=== PATIENT | female | born 1965 | race Caucasian/White ===

== ENCOUNTER 2020-03-07 08:02 | Outpatient (REF) | payer SELFPAY | END 2020-03-07 08:03 | disposition home or self-care (01) | LOC: HO.HAP 08:02 | PROVIDERS: Visit Provider Internal Medicine | DX: Z13.89 Encounter for screening for other disorder (principal) ==

== ENCOUNTER 2020-03-28 15:25 | Outpatient (REF) | payer SELFPAY | END 2020-03-28 15:26 | disposition home or self-care (01) | LOC: HO.HAP 15:25 | PROVIDERS: Visit Provider Internal Medicine | DX: Z13.89 Encounter for screening for other disorder (principal) ==

== ENCOUNTER 2020-06-04 09:28 | Outpatient (REF) | payer OTHER, SELFPAY ==
--- NOTE | 2020-06-04 11:20 | MHC.AU.P13 ---
Adult Audiological Evaluation Date of Visit: 06/04/20 Reason for Appointment: Audiological evaluation due to monitor the status of Ms. Yanez's hearing loss. She has a longstanding history of asymmetrical sensorineural hearing loss, left ear worse than right. She uses a hearing aid in the right ear only. She denies any significant changes to her hearing or medical history. Previous Hearing Test Results: [facility] – [place], 11/25/2018- Moderate to severe SNHL in the right ear, severe SNHL in the left ear. Medical History: Medical History: Thyroid Disease Hearing Instrument History- Right Ear: Java Web Architect: Here On Biz Model: Global Nano Productseo B 90-R Serial Number: [id number] Battery Size: Rechargeable Repair Warranty: 03/24/2020 Loss and Damage Warranty: 03/24/2020 Service Plan: Repair Dispensed By: [facility] Date of Fittin10/17/2016 Otoscopy: Right Ear: Unremarkable Left Ear: Unremarkable Hearing Evaluation: Transducer(s) Used: Insert Earphones, Bone Conduction Method: Conventional Audiometry Stimuli Used: Pure Tones Right Ear: Description of Hearing: Moderate sloping to severe sensorineural hearing loss from 250-8000 Hz. Left Ear: Description of Hearing: Severe sensorineural hearing loss from 250-8000 Hz. Speech Recognition Threshold (SRT): Method Used: Monitored Live Voice Stimuli Used: Spondee Words Right Ear: 40 dBHL Left Ear: 80 dBHL with effective masking Word Discrimination: Method: Recorded Lists Word Lists Used: NU-6 Right Ear: 100% at 80 dBHL Left Ear: Did not test- Longstanding history of poor discrimination Comparison: Compared to the most recent evaluation: Hearing is stable. Recommendations: Audiological re-evaluation in one year. Diagnosis: Primary Diagnosis: H90.3 Bilateral Sensorineural Hearing Loss Services Performed: Comprehensive Audiological Evaluation (CPT 11120) Signature: Provider: Jay Do, LATONIA-A
== END 2020-06-04 09:29 | disposition home or self-care (01) ==
LOC: HO.SH 09:28
PROVIDERS: Visit Provider Internal Medicine
DX: H90.3 Sensorineural hearing loss, bilateral (principal)
CPT/HCPCS: 92557

== ENCOUNTER 2020-08-16 09:00 | Outpatient (REF) | payer SELFPAY | END 2020-08-16 09:01 | disposition home or self-care (01) | LOC: HO.HAP 09:00 | PROVIDERS: Visit Provider Internal Medicine | DX: Z46.1 Encounter for fitting and adjustment of hearing aid (principal); H90.3 Sensorineural hearing loss, bilateral | CPT/HCPCS: 99499; V5299 ==

== ENCOUNTER 2020-09-25 12:26 | Outpatient (REF) | payer SELFPAY ==
--- NOTE | 2020-09-26 15:16 | MHC.AU.HAS ---
Hearing Aid Evaluation Date of Visit: 09/25/20 Historical Information: Description of Hearing: Right Ear - Moderate to severe sensorineural hearing loss with 100% speech understanding at 80 dB HL Left Ear - Severe sensorineural hearing loss with no speech discrimination ability. Current personal amplification information, if applicable: 2016 Right Phonak Audeo B 90-R obtained through [employer] program Summary: Denadra has been experiencing problems with the right hearing related to intermittent but significant distortion of the hearing aid. The hearing aid is no longer under warranty and she wants to purchase a new hearing aid with a battery as opposed to rechargeable. Hearing Aid Prescription: Based on the individual?s shared listening needs, communication environments, dexterity, desire for connectivity, and personal preferences, the following prescription for amplification has been made: Right ear: Belt Builder Helper: Phonak Model: Audeo P 90-13T Battery Size: 13 Color: Champagne Limo Driver: #2 Medium Type of Mold: C-Shell canal lock Plan of Care: Patient wishes to purchase hearing aids as prescribed Action Taken/Action Needed: Medical Clearance to be requested from PCP/ENT Order faxed to [facility] Using scan on file for the new canal lock c-shell Hearing Instrument Fitting to be scheduled when materials arrive Primary Diagnosis: H90.3 Bilateral Sensorineural Hearing Loss Signature: Provider: Jay Cannon, LATONIA-A
--- NOTE | 2020-09-26 15:18 | MHC.AU.MED ---
Medical Clearance for Hearing Instrumentation Date: 09/26/20 Patient Name: Deandra Yanez Date of : 1965 Primary Care Provider: Referring Provider: Areli Smith MD We have seen your patient on 09/26/20 and have determined that they are a candidate for amplification (See accompanying report). Specifically, they would benefit from: Hearing aid use in the right ear There is a statute that addresses Medical Evaluation Requirements prior to fitting a patient with a hearing aid. According to [place] statute 265 CMR:6.03(1), (a) General. Except as provided in 265 CMR 6.03(1)(b), a shearing machine feeder shall not sell a hearing aid unless the prospective user has presented to the shearing machine feeder a written statement signed by a licensed physician that states that the patient's hearing loss has been medically evaluated and the patient may be considered a candidate for a hearing aid. The medical evaluation must have taken place within the preceding six months. Please note: Due to the [place] Statute referenced above, we cannot accept a signature other than that of a licensed physician. BIOLOGY PROFESSOR and PA signatures cannot be accepted. I am in agreement with the above recommendation. There is no medical contraindication for hearing instrumentation. Physician Signature Date Physician Name (Printed)
== END 2020-09-25 12:27 | disposition home or self-care (01) ==
LOC: HO.HAP 12:26
PROVIDERS: Visit Provider Internal Medicine
DX: Z46.1 Encounter for fitting and adjustment of hearing aid (principal); H90.3 Sensorineural hearing loss, bilateral
CPT/HCPCS: 92591

== ENCOUNTER 2020-10-26 09:58 | Outpatient (REF) | payer SELFPAY | END 2020-10-26 09:59 | disposition home or self-care (01) | LOC: HO.HAP 09:58 | PROVIDERS: Visit Provider Internal Medicine | DX: Z46.1 Encounter for fitting and adjustment of hearing aid (principal); H90.3 Sensorineural hearing loss, bilateral | CPT/HCPCS: V5257 ==

== ENCOUNTER 2020-11-12 09:33 | Outpatient (REF) | payer SELFPAY ==
--- NOTE | 2020-11-12 11:48 | MHC.AU.FUR ---
Hearing Instrument Follow-Up Date of Visit: 11/12/20 Right Ear: Scale Attendant: Phonak Model: Audeo P 90-13T Serial Number: [id number] Repair Warranty: 01/06/2024 Loss and Damage Warranty: 03/24/2020 Battery Size: 13 Color: Champagne Rolled Materials Worker: #2 Medium Type of Mold: C-Shell canal lock #[id number] Warranty 02/06/2021 Type of Wax Guard: CeruStop Dispensed By: [facility] Date of Fittin10/26/2020 Follow-Up Summary: Hearing Aid Follow-up: Patient reports she is having problems with the new right hearing aid. She has a blocked sensation of the ear and the slim tip constantly moves out of the ear. Took new impression of the right ear and took photos to compare to old and new slim tips. Sent for remake and patient still has the original slim tip. Spoke with Dennsie in PCR. Since the new c-shell has a power mexican food machine tender now, this is why the mold is bigger. Sent e-mail with pictures taken. Dennise will make notes to increase vent to 2.0 size and change the canal lock. Recommendations (Other): Schedule appointment when remake in. Diagnosis Code(s): Primary Diagnosis: H90.3 Bilateral Sensorineural Hearing Loss Services Performed: AGUILERA Non-Quantity Charges: HANC: NonBillable Event Signature: Provider: Loretta Cannon, [facility]
== END 2020-11-12 09:34 | disposition home or self-care (01) ==
LOC: HO.HAP 09:33
PROVIDERS: Visit Provider Internal Medicine
DX: Z13.89 Encounter for screening for other disorder (principal)

== ENCOUNTER 2020-12-06 13:01 | Outpatient (REF) | payer SELFPAY | END 2020-12-06 13:02 | disposition home or self-care (01) | LOC: HO.HAP 13:01 | PROVIDERS: Visit Provider Internal Medicine | DX: Z13.89 Encounter for screening for other disorder (principal) ==

== ENCOUNTER 2021-01-04 09:44 | Outpatient (REF) | payer SELFPAY ==
--- NOTE | 2021-01-04 10:14 | MHC.AU.CE1 ---
Cerumen Removal- Right Ear Date of Visit: 01/04/21 Medical Conditions: No Conditions of Concern for Cerumen Removal Medications: No Medications of Concern for Cerumen Removal Procedure: Right Ear: Prior to Removal: Significant Cerumen Present Outcome of Procedure: All cerumen was removed. Tympanic membrane is now visible. Summary: Patient arrived for hearing aid check, with concern that the pastoral worker might be intermittent on her right hearing aid. She reports that recently she went to push the cShell in further, and it suddenly stopped working. Since then, it has seemed intermittent. Hearing aid inspected. Wax guard replaced. Hearing aid and pastoral worker/cShell placed in dryer for several minutes. Hearing aid seems to be working well. No visible damage to pastoral worker, cShell, or hearing aid. Otoscopy performed. Right canal was mostly occluded with cerumen. Left canal was clear. Cerumen removal performed. Patient reported a noted improvement in the hearing aid sound after cerumen removal. Advised that if any issues persist to let us know as soon as possible, as the cShell is under warranty until 02/06/2021. Diagnosis Code(s): Primary Diagnosis: H90.3 Bilateral Sensorineural Hearing Loss Services Performed: Cerumen Removal (CPT 94655) One Ear Signature: Provider: Jay Lira, LATONIA-A
== END 2021-01-04 09:45 | disposition home or self-care (01) ==
LOC: HO.HAP 09:44
PROVIDERS: Visit Provider Internal Medicine
DX: Z46.1 Encounter for fitting and adjustment of hearing aid (principal); H90.3 Sensorineural hearing loss, bilateral
CPT/HCPCS: 92700

== ENCOUNTER 2021-03-08 10:01 | Outpatient (REF) | payer SELFPAY | END 2021-03-08 10:02 | disposition home or self-care (01) | LOC: HO.HAP 10:01 | PROVIDERS: Visit Provider Internal Medicine | DX: Z13.89 Encounter for screening for other disorder (principal) ==

== ENCOUNTER 2021-03-28 14:49 | Outpatient (REF) | payer SELFPAY | END 2021-03-28 14:50 | disposition home or self-care (01) | LOC: HO.HAP 14:49 | PROVIDERS: Visit Provider Internal Medicine | DX: Z13.89 Encounter for screening for other disorder (principal) ==

== ENCOUNTER 2022-01-09 10:25 | Outpatient (REF) | payer OTHER, SELFPAY ==
--- NOTE | 2022-01-09 12:01 | MHC.AU.FUR ---
Hearing Instrument Follow-Up Date of Visit: 01/09/22 Right Ear: Oracle Adf Consultant: Phonak Audeo P90-13T SN: [id number] Color: Mali Repair Warranty: 01/06/2024 Battery Size: 13 Dixonac Operator: #2 Power Type of Mold: C-Shell canal lock #[id number] Warranty 02/06/2021 Type of Wax Guard: CeruStop Dispensed By: [facility] Date of Fittin10/26/2020 Follow-Up Summary: Deandra returned for routine hearing aid maintenance and cleaning. Her hearing aid and c-shell ear mold were cleaned, microphones were vacuumed, and the wax guard was replaced. Listening check demonstrated that the hearing aid is in good working order. No programming changes were made today as her hearing has remained stable and she is overall satisfied with her hearing aid sound quality. Her back up hearing aid, Phonak Audeo B90-R with c-shell was also cleaned. Recommendations: Hearing instrument maintenance in 6 months, or sooner if needed. Please contact our clinic with any questions or concerns. Diagnosis Code(s): Primary Diagnosis: H90.3 Bilateral Sensorineural Hearing Loss Signature: Provider: Petr Silva, [facility]
== END 2022-01-09 10:26 | disposition home or self-care (01) ==
LOC: HO.SH 10:25
PROVIDERS: Visit Provider Internal Medicine
DX: Z01.118 Encounter for examination of ears and hearing with other abnormal findings (principal); H90.3 Sensorineural hearing loss, bilateral
CPT/HCPCS: 92557; 92567

== ENCOUNTER 2022-05-30 11:43 | Outpatient (REF) | payer SELFPAY ==
--- NOTE | 2022-06-02 11:12 | MHC.AU.HA3 ---
Hearing Instrument Follow-Up- Binaural Date of Visit: 05/30/22 Right Ear: Make, Model, Color, Serial Number: [facility] [id number] SN: [id number] Color: Mali General Engineer Repair Warranty: 01/06/2024 Battery Size: 13 Valve Inserter/Slim Tube: #2 Power Earmold/Dome/CShell/SlimTip:C-Shell canal lock #[id number] Warranty 02/06/2021 Type of Wax Guard: CeruStop Dispensed By: [facility] Date of Fittin10/26/2020 Follow-Up Summary: Patient's right hearing aid was dropped off for repair, reporting it was producing static. There is a constant, loud static/hissing noise. Replacing the sales marketing coordinator and placing it in the electric dehumidifier did not help. Sent to [facility] for repair under warranty. Recommendations: Patient will be contacted when materials have arrived. Patient's case is in the repair drawer. Diagnosis Code(s): Primary Diagnosis: H90.3 Bilateral Sensorineural Hearing Loss Signature: Provider: Petr Lira, [facility]
== END 2022-05-30 11:44 | disposition home or self-care (01) ==
LOC: HO.HAP 11:43
PROVIDERS: Visit Provider Internal Medicine
DX: Z13.89 Encounter for screening for other disorder (principal)

== ENCOUNTER 2022-06-13 11:00 | Outpatient (REF) | payer SELFPAY | END 2022-06-13 11:01 | disposition home or self-care (01) | LOC: HO.HAP 11:00 | PROVIDERS: Visit Provider Internal Medicine | DX: Z13.89 Encounter for screening for other disorder (principal) ==

== ENCOUNTER 2023-01-28 12:36 | Outpatient (REF) | payer SELFPAY | END 2023-01-28 12:37 | disposition home or self-care (01) | LOC: HO.HAP 12:36 | PROVIDERS: Visit Provider Internal Medicine | DX: Z46.1 Encounter for fitting and adjustment of hearing aid (principal); H90.3 Sensorineural hearing loss, bilateral | CPT/HCPCS: V5267 ==

== ENCOUNTER 2023-03-30 11:47 | Inpatient (IN) | payer OTHER, SELFPAY ==
--- NOTE | ~2023-03-30 | MR_ITS ---
EXAMINATION: MR BRAIN WITHOUT CONTRAST CLINICAL INFORMATION: Cerebrovascular accident. COMPARISON: CT angiogram of the head and neck 03/30/2023. TECHNIQUE: Multiplanar MR imaging of the brain was performed without contrast. FINDINGS: There is a focus of restricted diffusion located within the right occipital lobe best visualized on axial image 16 of 30 series 4. In addition there are multiple additional foci of signal abnormality located primarily between the major vascular territories of the right cerebral hemisphere consistent with acute to subacute border zone infarcts. Scattered chronic small vessel ischemic changes are visualized primarily within the periventricular white matter. No pathological magnetic susceptibility artifact. Intracranial vascular flow voids are grossly maintained. There is no intracranial mass effect or midline shift. No abnormal extra-axial collection. Lateral and third ventricles are normal. No hydrocephalus. Midline structures including the cervicomedullary junction are normal. No acute bone marrow signal changes. There is a left mastoid effusion. Mild paranasal sinus disease primarily affecting the ethmoid air cells. Globes and orbits are symmetric. MR/MR head/brain wo con IMPRESSION: There is a small acute cortical infarct located within the right occipital lobe. This finding is superimposed upon multiple acute to subacute border zone infarcts located between the major vascular territories of the right cerebral hemisphere. Scattered chronic small vessel ischemic changes are visualized within the periventricular white matter. No acute hemorrhage.
--- NOTE | ~2023-03-30 | CT_ITS ---
EXAMINATION: CT ANGIOGRAM NECK WITH CONTRAST CT ANGIOGRAM BRAIN WITH CONTRAST CLINICAL INFORMATION: Left-sided weakness. COMPARISON: None. TECHNIQUE: Test bolus sequences followed by intravenous administration 100 mL of Omnipaque 350. Helical imaging was performed in the axial plane from the thoracic inlet to the skull vertex. There is extensive venous contamination on the angiographic images limiting evaluation. Delayed postcontrast imaging of the head was also performed. The data was processed at the lab technologist workstation for generation of MIP sequences. Angled MIPs and volume rendered reformatted images were also generated at an offline 3D workstation. Stenoses are assessed in accordance with NASCET criteria unless otherwise indicated. This CT examination was performed using dose optimization techniques as appropriate, variously including the following: *Automated exposure control *Adjustment of mA and/or kV according to patient size (this includes techniques or standardized protocols for targeted exams where dose is matched to indication/reason for exam; i.e. extremities or head) *Use of iterative reconstruction technique DLP: 1452 mGy-cm FINDINGS: Head CT: There is ill-defined hyperdensity within the right posterior parietal lobe seen on series 16 image 33/76 concerning for an evolving acute infarction. There is no gross hemorrhage, mass effect, or extra-axial fluid collection. No abnormal enhancement is seen. Mild hypoattenuation is seen within the white matter, presumably sequela of chronic microangiopathy. The ventricles are normal in size without hydrocephalus. The dural venous sinuses are patent. The extra cranial structures are within normal limits. Neck CTA: The aortic arch and great vessel origins are patent. Mild atheromatous changes are seen along the common carotid arteries without significant stenosis. There is significant calcific plaque at the right more than left internal carotid artery origins resulting in severe stenosis on the right with stenosis estimated as greater than 90%. The more distal cervical right internal carotid artery is normal in caliber. Atheromatous changes along the proximal left internal carotid artery results in 50% stenosis within an additional mild tandem stenosis seen just distally. The right vertebral artery is mildly narrowed by calcific plaque at its origin. The dominant right vertebral artery is patent throughout its cervical course. The left vertebral artery is nondominant and is occluded from its origin but reconstitutes in the mid V2 segment and is patent more superiorly. Head CTA: No large vessel occlusion is seen. The intracranial internal carotid arteries are patent. The ACAs are patent. The MCAs are patent with symmetric collaterals. The intradural vertebral arteries and basilar artery are patent. There is -type network operations specialist bilaterally. No aneurysm is seen. Non-vascular findings: There is emphysema within the upper lungs. A few calcified granulomata are seen within the upper lungs for which no additional imaging follow-up is recommended. Mild degenerative changes are seen within the spine. CT/CT angio head neck stroke IMPRESSION: CT HEAD: Hypoattenuation the right posterior parietal lobe concerning for an evolving acute infarction. No evidence of gross hemorrhage. CTA NECK: Severe stenosis at the origin of the right internal carotid artery estimated as greater than 90%. Stenosis at the proximal left internal carotid artery results in 50% stenosis. Left vertebral artery is nondominant and occluded from its origin but reconstitutes in the mid V2 segment. Dominant right vertebral artery is patent. CTA HEAD: No large vessel occlusion or significant stenosis within the intracranial circulation. This critical result was discussed with Dr. Cantu on 03/30/2023 2:56 PM, and it was ascertained that the content and urgency of the report was understood at the time of direct communication.
[2023-03-30 11:51] VITALS: BP 152/90; PULSE 99; RESP 18; TEMP 36.5; O2SAT 98; BMI 26.6
--- NOTE | 2023-03-30 11:52 | ED.GENADULT ---
HPI - General Adult General Chief complaint: Neuro Symptoms/Deficit Stated complaint: Stroke symptoms - referred by Time Seen by Provider: 03/30/23 13:56 Related Data Allergies Allergy/AdvReac Type Severity Reaction Status Date / Time Penicillins Allergy Anaphylaxis Verified 03/30/23 11:57 sulfamethoxazole Allergy Confusion Verified 03/30/23 11:57 [From Bactrim] trimethoprim [From Bactrim] Allergy Confusion Verified 03/30/23 11:57 aspirin [ASA] AdvReac Itching Verified 03/30/23 11:57 PMFSH Past Medical History Onset Date is defined in the Problem List Problems that require an onset date and time if occurred within 24 hrs of arrival to the ED Aortic Dissection and Rupture; Neurologic impairment; Cardiopulmonary Arrest; Endotracheal Intubation; Insertion or Replacement of Mechanical Circulatory Assist Device Medical History DVT (deep venous thrombosis) Graves disease Age related osteoporosis Surgical History H/O thyroidectomy Social History Social History Alcohol intake: current Alcohol intake frequency: a few times a week Alcohol type: beer Patient Tobacco Use Status: Never used Tobacco Smoked in Last 30 Days: No Use of substances other than those prescribed or required for medical reasons: No Advance Directives: No Advance Directives Information Provided: No Nutrition Risks: No Nutritional Risk Patient : No Physical Exam ED Vital Signs: Vital Signs - 24 hr 03/30/23 11:51 Temperature 97.7 F Pulse Rate 99 Respiratory Rate 18 Blood Pressure 152/90 H Pulse Oximetry 98 Oxygen Delivery Method Room Air BMI result Body Mass Index 26.6 Course Course Course Narrative: RME performed by Miryam Schultz PA-C. Patient is a 57 year old assigned female at presenting to the emergency department with generalized body aches and pain after a reclast infusion. Patient's daughter states that she is having trouble word finding. Detailed physical exam and review of systems are deferred to the substance abuse clinician. Labs ordered. Patient placed back in the waiting room pending room availability and results. Patient evaluated and dispositioned by Dr. Cantu who created and completed his own note. Please refer to his note from 03/30/2023. Reevaluation(s) Reevaluation #1: SEEN BY DR VAZQUEZ IN ED Time: 15:24 Medications Administered Discontinued Medications Generic Name Dose Route Start Last Admin Trade Name Taylor PRN Reason Stop Dose Admin Iohexol 100 ml 03/30/23 14:37 03/30/23 14:37 Iohexol 350 Mg/Ml 100 Ml Infus..Btl IV 03/30/23 14:38 70 ml ONCE ONE Administration Medical Decision Making Lab Data 03/30/23 12:38 03/30/23 12:38 Labs: Lab Results 03/30/23 Range/Units 12:38 WBC 5.7 (4.8-10.8) X10*3/uL RBC 4.77 (4.20-5.50) X10*6/uL Hgb 14.6 (12.0-16.0) g/dl Hct 44.7 (37.0-47.0) % MCV 93.7 (80.0-98.0) fL MCH 30.6 (27.0-33.0) pg MCHC 32.7 (31.0-35.0) g/dl RDW 13.4 (11.0-16.0) % Plt Count 234 (160-400) X10*3/uL MPV 9.6 (9.4-12.3) fL Immature Gran % (Auto) 0.3 (0.0-0.4) % Neut % (Auto) 70.6 (45-73) % Lymph % (Auto) 18.5 L (20-40) % [place] % (Auto) 9.1 (2-11) % Eos % (Auto) 1.2 (0-4) % Baso % (Auto) 0.3 (0-2) % Lymph # (Auto) 1.1 L (1.2-4.9) X10*3/uL [place] # (Auto) 0.5 (0.1-1.2) X10*3/uL Eos # (Auto) 0.1 (0.0-0.4) X10*3/uL Baso # (Auto) 0.0 (0.0-0.2) X10*3/uL Abs Immat Gran (auto) 0.02 (0.00-0.03) X10*3/uL Absolute Neuts (auto) 4.0 (2.0-8.3) x10*3/uL Absolute Nucleated RBC 0.000 (0.0-0.012) X10*3/uL Nucleated RBC % (auto) 0.0 (0.0-0.2) /100WBC Sodium 144 (135-145) mmol/L Potassium 4.1 (3.3-5.1) mmol/L Chloride 109 H (96-108) mmol/L Carbon Dioxide 25 (22-29) mmol/L Anion Gap 14 (12-20) BUN 10 (9-16) mg/dL Creatinine 0.85 (0.5-1.4) mg/dL Estim Creat Clear Calc 71.1 Estimated GFR > 60 Random Glucose 108 (60-115) mg/dL Calcium 9.3 (8.4-10.2) mg/dL Magnesium 2.1 (1.6-2.6) mg/dL Total Bilirubin 0.3 (0.0-1.0) mg/dL AST 33 H (5-31) U/L ALT 38 H (0-31) U/L Alkaline Phosphatase 76 (39-117) U/L Total Protein 8.0 (6.5-8.0) g/dL Albumin 4.2 (3.5-5.0) g/dL Influenza Type A (PCR) NEGATIVE (Negative) Influenza Type B (PCR) NEGATIVE (Negative) RSV RNA Qual (PCR) NEGATIVE (Negative) SARS-CoV-2 RNA (RT-PCR) NEGATIVE (Negative) Discharge Plan Discharge Clinical Impression: Cerebrovascular accident Patient Disposition: Admitted As Inpatient
[2023-03-30 12:57] LABS: Alanine Aminotransferase 38 U/L (0-31); Albumin Level 4.2 g/dL (3.5-5.0); Alkaline Phosphatase 76 U/L (39-117); Anion Gap 14 (12-20); Aspartate Amino Transferase 33 U/L (5-31); Bilirubin Total 0.3 mg/dL (0.0-1.0); Blood Urea Nitrogen 10 mg/dL (9-16); Calcium 9.3 mg/dL (8.4-10.2); Carbon Dioxide 25 mmol/L (22-29); Chloride 109 mmol/L (96-108); Creatinine Clr Calc Pharmacy 71.1; Estimated Glomerular Filt Rate > 60; Glucose Random 108 mg/dL (60-115); Magnesium 2.1 mg/dL (1.6-2.6); Potassium 4.1 mmol/L (3.3-5.1); Sodium 144 mmol/L (135-145)
--- NOTE | 2023-03-30 14:12 | ED.NEUROSD ---
HPI - Neuro Symptoms/Deficit General Chief Complaint: Neuro Symptoms/Deficit Stated Complaint: Stroke symptoms - referred by Time Seen by Provider: 03/30/23 13:56 Source: patient Mode of arrival: ambulatory Limitations: no limitations History of Present Illness HPI Narrative: This is a 57 years old female presented to emergency department complaining of generalized weakness and malaise, she had a Reclass infusion on Thursday for osteoporosis, she stated that she is feeling left arm numbness left leg numbness since 09:00 o'clock. She is ambulatory to the emergency room she is here with the daughter Onset (ago): hour(s) (5) Timing confirmed by: other (daughter) Location: left arm and left leg History of same: Yes Severity: mild Quality: numb Relieving factors: none Exacerbating factors: none Context: gradual onset Associated symptoms: denies other symptoms Related Data Home Medications Medication Instructions Recorded Confirmed calcium carbonate 500 mg calcium 500 mg PO DAILY 03/30/23 03/30/23 (1,250 mg) tablet cholecalciferol (vitamin D3) 50 50 mcg PO DAILY 03/30/23 03/30/23 mcg (2,000 unit) tablet levothyroxine 75 mcg tablet 75 mcg PO DAILY 03/30/23 03/30/23 Allergies Allergy/AdvReac Type Severity Reaction Status Date / Time Penicillins Allergy Anaphylaxis Verified 03/30/23 11:57 sulfamethoxazole Allergy Confusion Verified 03/30/23 11:57 [From Bactrim] trimethoprim [From Bactrim] Allergy Confusion Verified 03/30/23 11:57 aspirin [ASA] AdvReac Itching Verified 03/30/23 11:57 Review of Systems Constitutional: Constitutional: Reports no additional constitutional complaints ENT: Reports system reviewed and no additional complaints, except as documented Cardiovascular: Cardiovascular: Reports no additional cardiovascular complaints Respiratory: Respiratory: Reports no additional respiratory complaints PMFSH Past Medical History Attestation statement: The following information was validated with the patient. Source: unable to obtain Onset Date is defined in the Problem List Problems that require an onset date and time if occurred within 24 hrs of arrival to the ED Aortic Dissection and Rupture; Neurologic impairment; Cardiopulmonary Arrest; Endotracheal Intubation; Insertion or Replacement of Mechanical Circulatory Assist Device Medical History DVT (deep venous thrombosis) Graves disease Age related osteoporosis Surgical History H/O thyroidectomy Social History Social History Alcohol intake: current Alcohol intake frequency: a few times a week Alcohol type: beer Patient Tobacco Use Status: Never used Tobacco Smoked in Last 30 Days: No Use of substances other than those prescribed or required for medical reasons: No Advance Directives: No Advance Directives Information Provided: No Nutrition Risks: No Nutritional Risk Patient : No Physical Exam Vital Signs: Vital Signs: Last Vital Signs Temp 98.3 F 03/30/23 15:22 Pulse 75 03/30/23 15:22 Resp 12 03/30/23 15:22 BP 153/89 H 03/30/23 15:22 Pulse Ox 97 03/30/23 15:22 O2 Del Method Room Air 03/30/23 15:22 BMI result Body Mass Index 26.6 Const: General: cooperative, healthy appearing, comfortable and no acute distress Nutritional Appearance: average body habitus and well nourished Orientation/consciousness: patient oriented x3 Limitations: no limitations HEENT: Head: Yes normal to inspection General nose exam: Normal external nose present Face and sinus: Yes normal facial exam Mouth: Normal oral and palatal mucosa present Neck: Neck: Yes normal visual inspection and Yes full ROM Chest: Chest palpation & inspection: normal inspection of the chest Resp: Effort & Inspection: normal respiratory effort and able to speak in complete sentences Auscultation: clear to auscultation bilaterally Cardio: Jugular venous distension: no JVD Rate: regular rate Rhythm: regular rhythm GI: Inspection: Yes normal to inspection Palpation (GI): Soft to palpation Auscultation: normal bowel sounds Skin: General skin exam: no rashes or lesions noted and elasticity normal Lesions: no lesions Neuro: General: patient oriented x3 and CN's II-XI intact bilaterally Cranial nerves: Yes CN's II-XII intact bilaterally Cognition (Neuro): normal cognition Motor exam (neuro): 5/5 motor strength present throughout Coordination: [id number] test normal Course Reevaluation(s) Reevaluation #1: spoke with stroke team DA/dR VAZQUEZ Time: 15:13 Medications Administered Generic Name Dose Route Start Last Admin Trade Name Freq PRN Reason Stop Dose Admin Sodium Chloride 3 ml 03/30/23 16:00 03/30/23 15:40 0.9 % Sodium Chloride Flush 3 Ml Syringe IVFLUSH 3 ml QSHIFT [place] Administration Discontinued Medications Generic Name Dose Route Start Last Admin Trade Name Checoq PRN Reason Stop Dose Admin Clopidogrel Bisulfate 75 mg 03/30/23 14:38 03/30/23 15:40 Clopidogrel Bisulfate 75 Mg Tablet PO 03/30/23 14:39 75 mg ONCE ONE Administration Iohexol 100 ml 03/30/23 14:37 03/30/23 14:37 Iohexol 350 Mg/Ml 100 Ml Infus..Btl IV 03/30/23 14:38 70 ml ONCE ONE Administration Medical Decision Making Medical Decision Making [facility] Narrative: Patient will presented with left side numbness, CT scan shows possible CVA, she is out of the window for tPA. Will admit telemetry echo stroke workup Differential Diagnosis Differential Diagnoses: The differential diagnosis associated with the presentation includes CVA/intracranial bleed Admission/Observation Consideration of admission/observation: Escalation of care including admission/observation considered Consult Healthcare Provider Management of the patient was discussed with: Demolition Crane Operator Lab Data [facility] Lab Attestation statement: I reviewed the patient's lab results. 03/30/23 12:38 03/30/23 12:38 Labs: Lab Results 03/30/23 Range/Units 12:38 WBC 5.7 (4.8-10.8) X10*3/uL RBC 4.77 (4.20-5.50) X10*6/uL Hgb 14.6 (12.0-16.0) g/dl Hct 44.7 (37.0-47.0) % MCV 93.7 (80.0-98.0) fL MCH 30.6 (27.0-33.0) pg MCHC 32.7 (31.0-35.0) g/dl RDW 13.4 (11.0-16.0) % Plt Count 234 (160-400) X10*3/uL MPV 9.6 (9.4-12.3) fL Immature Gran % (Auto) 0.3 (0.0-0.4) % Neut % (Auto) 70.6 (45-73) % Lymph % (Auto) 18.5 L (20-40) % [place] % (Auto) 9.1 (2-11) % Eos % (Auto) 1.2 (0-4) % Baso % (Auto) 0.3 (0-2) % Lymph # (Auto) 1.1 L (1.2-4.9) X10*3/uL [place] # (Auto) 0.5 (0.1-1.2) X10*3/uL Eos # (Auto) 0.1 (0.0-0.4) X10*3/uL Baso # (Auto) 0.0 (0.0-0.2) X10*3/uL Abs Immat Gran (auto) 0.02 (0.00-0.03) X10*3/uL Absolute Neuts (auto) 4.0 (2.0-8.3) x10*3/uL Absolute Nucleated RBC 0.000 (0.0-0.012) X10*3/uL Nucleated RBC % (auto) 0.0 (0.0-0.2) /100WBC Sodium 144 (135-145) mmol/L Potassium 4.1 (3.3-5.1) mmol/L Chloride 109 H (96-108) mmol/L Carbon Dioxide 25 (22-29) mmol/L Anion Gap 14 (12-20) BUN 10 (9-16) mg/dL Creatinine 0.85 (0.5-1.4) mg/dL Estim Creat Clear Calc 71.1 Estimated GFR > 60 Random Glucose 108 (60-115) mg/dL Calcium 9.3 (8.4-10.2) mg/dL Magnesium 2.1 (1.6-2.6) mg/dL Total Bilirubin 0.3 (0.0-1.0) mg/dL AST 33 H (5-31) U/L ALT 38 H (0-31) U/L Alkaline Phosphatase 76 (39-117) U/L Total Protein 8.0 (6.5-8.0) g/dL Albumin 4.2 (3.5-5.0) g/dL Influenza Type A (PCR) NEGATIVE (Negative) Influenza Type B (PCR) NEGATIVE (Negative) RSV RNA Qual (PCR) NEGATIVE (Negative) SARS-CoV-2 RNA (RT-PCR) NEGATIVE (Negative) Independent Interpretation I performed an independent interpretation of an: EKG (NSR NO ISCHEMIA) and CT Scan Interpretation: RT PARIETAL CVA Radiology Impression Discussion of test interpretation with radiology: I have reviewed the radiologist's reading. Radiologist Impression: FINDINGS: There is loss of quinteros to white matter differentiation in the right parieto-occipital region. There is associated sulcal effacement. This is concerning for acute ischemia. No evidence of intracranial hemorrhage. No midline shift. No extra-axial fluid collections are identified. No hydrocephalus. The calvarium is intact. The visualized portions of the paranasal sinuses are well aerated. CT/CT head/brain wo IV con IMPRESSION: Loss of quinteros to white matter differentiation in the right parieto-occipital region concerning for acute ischemia. MRI of brain is recommended. Findings were reviewed and discussed with KARLY Clemente at 1:40 PM on 03/30/2023. Dictated By: Eriberto Albert MD Signed By: <Electronically signed by Independent Historian Clinical information obtained from an independent historian. History obtained from or confirmed by: Other (DAUGHTER) NIH Stroke Scale Level of Consciousness: Alert Level of Consciousness Questions: Answers both questions correctly Level of Consciousness Commands: Performs both tasks correctly Best Gaze: Normal Visual: No visual loss Facial Palsy: Normal Motor Arm (Right): No drift Motor Arm (Left): No drift Motor Leg (Right): No drift Motor Leg (Left): No drift Limb Ataxia: Absent Sensory: Mild to moderate sensory loss Best Language: No aphasia Dysarthia: Normal Extinction and Inattention: No abnormality Score: 1 Discharge Plan Discharge Clinical Impression: Cerebrovascular accident Patient Disposition: Admitted As Inpatient
--- NOTE | 2023-03-30 15:00 | PC.NURSE ---
Patient a&ox3, speaking in full sentences, denies pain/discomfort, neuro intact- no arm drift noted, pt left hand grasp seems mildly weaker than left, BLE equal, smile symmetrical, iv inserted for CTA, monitoring analyst intact- nsr, call cardona within reach, will continue to monitor
--- NOTE | 2023-03-30 15:00 | P.HPHOSP_ITS ---
History of Present Illness Date of Service: 03/30/23 Chief Complaint: left sided weakness 57F PMH osteoporosis, graves s/p thyroidectomy now on levothyroxine, hormone therapy provoked DVT, presented with left sided weakness. patient reports waking up on am day prior to presentation with left hand weakness and numbness, worse in distal hand. on am of admission woke up with left lower extremity weakness. in ED noted to have concern for right parietal occiptal cva on CTH. Review of Systems 2 Review of Systems: Yes all other systems are reviewed and are negative [facility] Medical History DVT (deep venous thrombosis) Graves disease Age related osteoporosis Surgical History H/O thyroidectomy Social History Alcohol intake: current Alcohol intake frequency: a few times a week Alcohol type: beer Meds Allergies Allergy/AdvReac Type Severity Reaction Status Date / Time Penicillins Allergy Anaphylaxis Verified 03/30/23 11:57 sulfamethoxazole Allergy Confusion Verified 03/30/23 11:57 [From Bactrim] trimethoprim [From Bactrim] Allergy Confusion Verified 03/30/23 11:57 aspirin [ASA] AdvReac Itching Verified 03/30/23 11:57 Physical Exam 2 Vital Signs and Narrative: Vital Signs: Last Vital Signs Temp 97.7 F 03/30/23 11:51 Pulse 99 03/30/23 11:51 Resp 18 03/30/23 11:51 BP 152/90 H 03/30/23 11:51 Pulse Ox 98 03/30/23 11:51 O2 Del Method Room Air 03/30/23 11:51 BMI result Body Mass Index 26.6 Results Labs 03/30/23 12:38 03/30/23 12:38 Labs: Laboratory Results - last 24 hr 03/30/23 12:38 MCV 93.7 MCH 30.6 MCHC 32.7 RDW 13.4 Plt Count 234 MPV 9.6 Immature Gran % (Auto) 0.3 Neut % (Auto) 70.6 Lymph % (Auto) 18.5 L [place] % (Auto) 9.1 Eos % (Auto) 1.2 Baso % (Auto) 0.3 Lymph # (Auto) 1.1 L [place] # (Auto) 0.5 Eos # (Auto) 0.1 Baso # (Auto) 0.0 Abs Immat Gran (auto) 0.02 Absolute Neuts (auto) 4.0 Absolute Nucleated RBC 0.000 Nucleated RBC % (auto) 0.0 Anion Gap 14 Estim Creat Clear Calc 71.1 Estimated GFR > 60 Random Glucose 108 Calcium 9.3 Magnesium 2.1 Total Bilirubin 0.3 AST 33 H ALT 38 H Alkaline Phosphatase 76 Total Protein 8.0 Albumin 4.2 Influenza Type A (PCR) NEGATIVE Influenza Type B (PCR) NEGATIVE RSV RNA Qual (PCR) NEGATIVE SARS-CoV-2 RNA (RT-PCR) NEGATIVE Imaging Radiologist's Impressions: Impressions Head CT 03/30/23 12:40 IMPRESSION: Loss of quinteros to white matter differentiation in the right parieto-occipital region concerning for acute ischemia. MRI of brain is recommended. Findings were reviewed and discussed with KARLY Clemente at 1:40 PM on 03/30/2023. Assessment and Plan (1) Cerebrovascular accident: Status: Acute Plan 57F PMH osteoporosis, graves s/p thyroidectomy now on levothyroxine, hormone therapy provoked DVT, presented with left sided weakness acute cva out of window for intervention plavix (asa allergy), statin mri, echo, tele neuro eval pt,ot check lipids graves s/p thyroidectomy synthroid osteoporosis vitd, calcium history of dvt provoked, not on AC dvt prophylaxis - lovenox full code patient with acute cva, needs close monitoring as for further stroke highest in next 48 hours, as well as ongoing stroke work up and pt/ot evaluations, therefore, expected to require atleast 2 midnights inpatient Quality Stroke Does the patient have a stroke diagnosis?: Yes Reason for No Anti-thrombotic by Day Two: N/A - Med Ordered VTE Prior VTE?: Yes VTE Risk Level:: Medical - moderate - high VTE Device Contraindication: Treatment Not Indicated VTE Drug Contraindication: N/A - Med Ordered
--- NOTE | 2023-03-30 15:14 | ECG_ITS ---
Test Reason : QUESTION STROKE Blood Pressure : / mmHG Vent. Rate : 074 BPM Atrial Rate : 074 BPM P-R Int : 170 ms QRS Dur : 070 ms QT Int : 384 ms P-R-T Axes : 061 -05 045 degrees QTc Int : 426 ms Normal sinus rhythm Normal ECG When compared with ECG of 03-APR-2009 11:00, Questionable change in QRS axis T wave amplitude has increased in Lateral leads Referred By: Ryan Cantu Electronically Signed By:NADIA LAZARO MD
[2023-03-30 15:22] VITALS: BP 153/89; PULSE 75; RESP 12; TEMP 36.8; O2SAT 97
--- NOTE | 2023-03-30 15:24 | PC.NURSE ---
PT AWAKE, ALERT AND ORIENTED X 3. SKIN PINK WARM AND DRY. RESP UNLABORED. DENIES N/V. NO C/O PAIN OR DISTRESS. NEUROS INTACT. HAND GRASP EQUAL, MOVING ALL EXTREMITIES. TONGUE MIDLINE. NO PALMAR DRIFT. PASSED SWALLOW WITHOUT DIFFICULTY. CT HEAD AND CT HEAD/NECK COMPLETED. PLAN IS FOR ADMISSION, MRI. PT AWARE AND AGREEABLE TO PLAN. PT STATES THAT SHE HAD A RECLAST INFUSION ON THURSDAY. PT REPORTS CHILLS/BODYACHES AND BODY PAIN STARTING ON THURSDAY. REPORTS THAT HER LEFT SHOULDER AND HAND FELT WEIRD . ALSO REPORTS DIFFICULTY WORD FINDING. TODAY SHE REPORTS LEFT SIDED LEG WEAKNESS THAT SHE NOTICED THIS AM WHEN SHE WOKE UP. PT EVALUATED BY DR QUEZADA. PREPARING TO GO TO MRI
--- NOTE | 2023-03-30 15:37 | PHA.MEDREC ---
Pharmacy Consult ? Medication Reconciliation Pharmacy has completed the medication reconciliation. Patient reported medicaitons. Lara Carrasquillo, NaniD
--- NOTE | 2023-03-30 15:45 | PC.NURSE ---
ekg performed, pt medicated per order, vss, call cardona within reach, family at bedside, will continue to monitor
--- NOTE | 2023-03-30 15:46 | P.CNNE_ITS ---
History of Present Illness Data of Consult Service Date: 03/30/23 Primary Care Provider: Areli Smith MD [facility] Reason for consult: Stroke and carotid stenosis 57 years old woman with past medical history of osteoporosis but no history of heart disease or stroke presented with new onset of left-sided numbness and weakness that started a day or 2 prior to coming to emergency room. She talk to her primary care physician and was told to come to emergency room. There was no associated speech or language difficulty, headache, visual symptom, or pain. Review of Systems 2 Review of Systems: No recent cold or flu-like illness PMFSH Past Medical History Medical History DVT (deep venous thrombosis) Graves disease Age related osteoporosis Surgical History Surgical History H/O thyroidectomy Social History Social History Alcohol intake: current Alcohol intake frequency: a few times a week Alcohol type: beer Patient Tobacco Use Status: Never used Tobacco Smoked in Last 30 Days: No Use of substances other than those prescribed or required for medical reasons: No Advance Directives: No Advance Directives Information Provided: No Nutrition Risks: No Nutritional Risk Patient : No Meds Allergies Allergy/AdvReac Type Severity Reaction Status Date / Time Penicillins Allergy Anaphylaxis Verified 03/30/23 11:57 sulfamethoxazole Allergy Confusion Verified 03/30/23 11:57 [From Bactrim] trimethoprim [From Bactrim] Allergy Confusion Verified 03/30/23 11:57 aspirin [ASA] AdvReac Itching Verified 03/30/23 11:57 Active Medications: Current Medications Acetaminophen (Acetaminophen 325 Mg Tablet) 650 mg PO Q6H PRN PRN Reason: Pain, Mild (Pain Scale 1-3) Atorvastatin Calcium (Atorvastatin Calcium 80 Mg Tablet) 80 mg PO BEDTIME [facility] Clopidogrel Bisulfate (Clopidogrel Bisulfate 75 Mg Tablet) 75 mg PO DAILY [facility] Enoxaparin Sodium (Enoxaparin Sodium 40 Mg/0.4 Ml Syringe) 40 mg SUBCUT Q24H [facility] Sodium Chloride (0.9 % Sodium Chloride Flush 3 Ml Syringe) 3 ml IVFLUSH QSHIFT [facility] Last Admin: 03/30/23 15:40 Dose: 3 ml Home Medications Medication Instructions Recorded Confirmed Last Taken Type calcium carbonate 500 mg calcium 500 mg PO DAILY 03/30/23 03/30/23 Unknown History (1,250 mg) tablet cholecalciferol (vitamin D3) 50 50 mcg PO DAILY 03/30/23 03/30/23 Unknown History mcg (2,000 unit) tablet levothyroxine 75 mcg tablet 75 mcg PO DAILY 03/30/23 03/30/23 Unknown History Physical Exam 2 Vital Signs: Vital Signs: Last Vital Signs Temp 98.3 F 03/30/23 15:22 Pulse 75 03/30/23 15:22 Resp 12 03/30/23 15:22 BP 153/89 H 03/30/23 15:22 Pulse Ox 97 03/30/23 15:22 O2 Del Method Room Air 03/30/23 15:22 BMI result Body Mass Index 26.6 Neuro: Other: She is alert and awake with normal spontaneity of speech fluency comprehension and affect. Face is symmetrical. Visual allen are full. There is no pronator drift. Pgvvvn-fm-opmh testing is normal. There is no obvious leg weakness. Double simultaneous touch stimulation resulted in left-sided extinction. Speech or language with normal. Results Labs 03/30/23 12:38 03/30/23 12:38 Labs: Short CBC 03/30/23 Range/Units 12:38 WBC 5.7 (4.8-10.8) X10*3/uL Hgb 14.6 (12.0-16.0) g/dl Hct 44.7 (37.0-47.0) % Plt Count 234 (160-400) X10*3/uL BMP 03/30/23 12:38 Sodium 144 Potassium 4.1 Chloride 109 H Carbon Dioxide 25 BUN 10 Creatinine 0.85 Calcium 9.3 Liver Function 03/30/23 Range/Units 12:38 Total Bilirubin 0.3 (0.0-1.0) mg/dL AST 33 H (5-31) U/L ALT 38 H (0-31) U/L Alkaline Phosphatase 76 (39-117) U/L Albumin 4.2 (3.5-5.0) g/dL Her noncontrast head CT revealed a cortical right parieto-occipital junction area hypodensity. CTA revealed right internal carotid artery critical stenosis and about 50% left. Assessment and Plan (1) Cerebrovascular accident: Qualifiers: CVA mechanism: embolism Precerebral and cerebral artery: carotid artery Laterality of affected vessel: right Qualified Code(s): I63.131 - Cerebral infarction due to embolism of right carotid artery Status: Acute 57 years old woman with right middle cerebral artery area ischemic infarction with CTA revealing critical right internal carotid artery stenosis. Stroke was likely related to this. She is allergic to aspirin. My recommendation at this time is to give her clopidogrel 75 mg daily and obtain a noncontrast MRI of brain. She would require right internal carotid artery surgery or and Dr. Anahi sweeney but timing of that would depend upon MRI findings. Keep her hydrated and avoid hypotension. I would avoid treating mild hypertension at this time. Procedures Date of Service Date of Service: 03/30/23
[2023-03-30] MEDS: Atorvastatin Calcium 80 MG TABLET PO (20:40)
[2023-03-30 20:41] VITALS: BP 128/82; PULSE 85; RESP 16; TEMP 36.8; O2SAT 97
[2023-03-31] VITALS (8 sets, daily range): BP systolic 100–141; BP diastolic 64–92; PULSE 71–88; RESP 14–18; TEMP 36.6; O2SAT 95–100
[2023-03-31] MEDS: Acetaminophen 325 MG TABLET 650 MG PO ×2 (02:13→20:47)
[2023-03-31] MEDS: Levothyroxine Sodium 75 MCG TABLET PO (05:49)
[2023-03-31 06:34] LABS: Hemoglobin 14.3 g/dl (12.0-16.0); Mean Corpuscular HGB Conc 32.5 g/dl (31.0-35.0); Mean Corpuscular Hemoglobin 30.6 pg (27.0-33.0); Mean Platelet Volume 10.4 fL (9.4-12.3); Platelet Count 247 X10*3/uL (160-400); Red Blood Count 4.68 X10*6/uL (4.20-5.50); Red Cell Distribution Width 13.5 % (11.0-16.0); White Blood Count 5.6 X10*3/uL (4.8-10.8)
[2023-03-31 06:46] LABS: Anion Gap 13 (12-20); Blood Urea Nitrogen 11 mg/dL (9-16); Calcium 8.3 mg/dL (8.4-10.2); Carbon Dioxide 24 mmol/L (22-29); Chloride 109 mmol/L (96-108); Cholesterol 171 mg/dL (<200); Creatinine Clr Calc Pharmacy 73.7; Estimated Glomerular Filt Rate > 60; Glucose Fasting 105 mg/dL (60-99); HDL Cholesterol 57 mg/dL (>40); LDL Cholesterol Calculated 97 mg/dL (<100); Potassium 3.5 mmol/L (3.3-5.1); Sodium 142 mmol/L (135-145); Triglycerides 85 mg/dL (<150)
--- NOTE | 2023-03-31 07:00 | CA_ITS ---
Transthoracic Echocardiogram Patient (Last, First, Middle): Deandra Yanez M Gender: Female Date of : 1965 Age: 57 Procedure Date: 03/31/2023 Procedure Type: Transthoracic Echocardiogram Location: ER Height: 165.1 cm Weight: 72.58 kg BSA: 1.80 m2 Heart Rate: 79 bpm BP: 139 / 83 mmHg Progress Man: MELVA Referring MD: Eros Marsh MD Chaperon: Rey Jenkins MD Symptoms: cva bubble study needed Study Quality: Adequate ECG Rhythm: Sinus Conclusions: - 1. Normal LV ejection fraction of 60 65% 2. Normal cardiac valvular Dopplers next 3. No clear evidence of intracardiac shunting on this study 4. No gross pericardial effusion Findings Left Ventricle Normal left ventricular size, thickness, and systolic function. The visually estimated ejection fraction is between 60-65%. Spectral Doppler is indicative of a normal filling pattern. Peak GLS is -13.4%, which is moderately reduced. Right Ventricle Normal right ventricular cavity size and systolic function. Atria The left atrium is likely dilated. There is no evidence of interatrial shunt by agitated saline. The right atrium is normal in size. Aortic Valve The aortic valve structure and function is likely normal. There is no aortic valve stenosis. There is no aortic valve regurgitation. Mitral Valve Normal mitral valve structure and function. There is trace mitral valve regurgitation. There is no mitral valve stenosis. Pulmonic Valve The pulmonic valve was not well visualized. Tricuspid Valve Likely normal tricuspid valve structure and function. Tricuspid regurgitation envelope is inadequate for calculation of right ventricular systolic pressure. Normal right atrial pressure. Great Vessels The pulmonary artery was not well visualized. There is no dilatation of the ascending aorta measuring 2.50 cm. Venous The inferior vena cava is normal in size and collapses greater than 50% with inspiration. Pericardium/Pleural There is no evidence of pericardial effusion. Prior Study Comparison No prior study available for comparison. Measurements 2D Linear Measurements IVSd: 0.68 0.6-0.9/0.6-1.0 cm LVIDd: 4.27 3.9-5.3/4.2-5.9 cm LVIDd Index: 2.37 2.4-3.2/2.2-3.1 cm/m2 LVIDs: 2.73 2.0-3.6 cm LVPWd: 0.72 0.7-1.1 cm LA Diam: 3.90 2.7-3.8/3.0-4.0 cm LAIDs Index: 2.17 1.5-2.3 cm/m2 LV Mass: 108.41 67-162/88-224 g LV Mass Index: 60.23 43-95/49-115 g/m2 LVOT Diam: 2.10 3.0+(-)1.3 cm Mitral Valve MV Pk E: 0.69 MV PK A: 0.64 MV Decel Time: 162.00 E/A: 1.10 E'Lateral: 7.07 E'Medial: 5.33 E/E' Med: 12.90 E/E' Lat: 9.70 PHT: 47.00 MVA PHT: 4.68 Decel [place]: 4.23 Aortic Valve AoV Pk Hua: 1.24 AoV Pk Grad: 6.00 NATHALIA: 2.37 LVOT LVOT Pk Hua: 0.82 LVOT Mn Hua: 0.57 LVOT VTI: 0.16 LVOT Pk Grad: 3.00 LVOT Mn Grad: 1.00 LVOT Diam: 2.10 LVOT Area: 3.46 Diastolic Function MV Pk E: 0.69 MV Pk A: 0.64 E/A: 1.10 E'Medial: 5.33 E/E' Med: 12.90 E' Laterial: 7.07 E/E' Lat: 9.70 Right Ventricle TAPSE (mm): 20.30 TVS' Hua: 9.46 Tricuspid Valve RA Press: 3.00 Great Vessels Aorta Sinus of Valsalva: 2.80 2.0-3.5 cm Ao Asc: 2.50 2.1-3.4 cm Pulmonary Valve PV Pk Hua: 0.86 Peak PV Grad: 3.00 Updated in Other Vendor System with Status of Final Rey Jenkins MD electronically signed on 03/31/2023 4:04:33 PM with status of Final
--- NOTE | 2023-03-31 08:34 | PC.NURSE ---
pt seen by physical therapy at this time. pt ambulates w/ strong/steady gait. no assistance needed. no sob/wob noted. respirations even and unlabored while ambulating.
[2023-03-31] MEDS: Enoxaparin Sodium 40 MG/0.4 ML SYRINGE SUBCUT (08:47)
[2023-03-31] MEDS: 0.9 % Sodium Chloride Flush 3 ML SYRINGE IVFLUSH (08:47)
[2023-03-31] MEDS: Cholecalciferol (Vitamin D3) 25 MCG TABLET 50 MCG PO (08:47)
[2023-03-31] MEDS: Clopidogrel Bisulfate 75 MG TABLET PO (08:47)
--- NOTE | 2023-03-31 08:50 | PC.NURSE ---
a&ox4, vss and up to date. pt denies pain - had no complaints at this time. pt sitting upright eating breakfast at this time. medication administered per provider order. pt awaiting bed assignment at this time. no sob/wob noted. respirations even and unlabored. call cardona placed within reach.
--- NOTE | 2023-03-31 09:41 | HO.PM.IMPN ---
Subjective Subjective Date of Service: 03/31/23 Interval History: improving left sided weakness Physical Exam Vital Signs: Vital Signs: Last Vital Signs Temp 98.2 F 03/30/23 20:41 Pulse 77 03/31/23 08:42 Resp 14 03/31/23 08:42 BP 120/81 03/31/23 08:42 Pulse Ox 97 03/31/23 08:42 O2 Del Method Room Air 03/31/23 08:42 BMI result Body Mass Index 26.6 Neuro: Other: She is alert and awake with normal spontaneity of speech fluency comprehension and affect. Face is symmetrical. Visual allen are full. There is no pronator drift. [id number]-gp-gnli testing is normal. There is no obvious leg weakness. Double simultaneous touch stimulation resulted in left-sided extinction. Speech or language with normal. Objective Data Active Medications Acetaminophen (Acetaminophen 325 Mg Tablet) 650 mg PO Q6H PRN PRN Reason: Pain, Mild (Pain Scale 1-3) Atorvastatin Calcium (Atorvastatin Calcium 80 Mg Tablet) 80 mg PO BEDTIME [facility] Last Admin: 03/30/23 20:40 Dose: 80 mg Documented By: DEUCE Calcium Carbonate (Calcium Carbonate 500 Mg Tablet) 500 mg PO DAILY [facility] Last Admin: 03/31/23 08:47 Dose: 500 mg Documented By: LEONA Clopidogrel Bisulfate (Clopidogrel Bisulfate 75 Mg Tablet) 75 mg PO DAILY [facility] Last Admin: 03/31/23 08:47 Dose: 75 mg Documented By: LEONA Enoxaparin Sodium (Enoxaparin Sodium 40 Mg/0.4 Ml Syringe) 40 mg SUBCUT Q24H [facility] Last Admin: 03/31/23 08:47 Dose: 40 mg Documented By: LEONA Levothyroxine Sodium (Levothyroxine Sodium 75 Mcg Tablet) 75 mcg PO DAILY@0600 [facility] Last Admin: 03/31/23 05:49 Dose: 75 mcg Documented By: DEUCE Sodium Chloride (0.9 % Sodium Chloride Flush 3 Ml Syringe) 3 ml IVFLUSH QSHIFT [facility] Last Admin: 03/31/23 08:47 Dose: 3 ml Documented By: LEONA Vitamin D (Cholecalciferol (Vitamin D3) 25 Mcg Tablet) 50 mcg PO DAILY [facility] Last Admin: 03/31/23 08:47 Dose: 50 mcg Documented By: LEONA Labs 03/31/23 05:06 03/31/23 05:06 Labs: Laboratory Results - last 24 hr 03/30/23 03/31/23 12:38 05:06 MCV 93.7 94.0 MCH 30.6 30.6 MCHC 32.7 32.5 RDW 13.4 13.5 Plt Count 234 247 MPV 9.6 10.4 Immature Gran % (Auto) 0.3 Neut % (Auto) 70.6 Lymph % (Auto) 18.5 L [place] % (Auto) 9.1 Eos % (Auto) 1.2 Baso % (Auto) 0.3 Lymph # (Auto) 1.1 L [place] # (Auto) 0.5 Eos # (Auto) 0.1 Baso # (Auto) 0.0 Abs Immat Gran (auto) 0.02 Absolute Neuts (auto) 4.0 Absolute Nucleated RBC 0.000 0.000 Nucleated RBC % (auto) 0.0 0.0 Anion Gap 14 13 Estim Creat Clear Calc 71.1 73.7 Estimated GFR > 60 > 60 Random Glucose 108 Fasting Glucose 105 H Calcium 9.3 8.3 L D Magnesium 2.1 Total Bilirubin 0.3 AST 33 H ALT 38 H Alkaline Phosphatase 76 Total Protein 8.0 Albumin 4.2 Triglycerides 85 Cholesterol 171 LDL Cholesterol, Calc 97 HDL Cholesterol 57 Influenza Type A (PCR) NEGATIVE Influenza Type B (PCR) NEGATIVE RSV RNA Qual (PCR) NEGATIVE SARS-CoV-2 RNA (RT-PCR) NEGATIVE Assessment and Plan (1) Cerebrovascular accident: Status: Acute Plan 57F PMH osteoporosis, graves s/p thyroidectomy now on levothyroxine, hormone therapy provoked DVT, presented with left sided weakness acute right occipital lobe cva due to [place] 90% stenosis in patient with treating engineer helper out of window for intervention plavix (asa allergy), statin echo, tele vascular eval pt,ot graves s/p thyroidectomy synthroid osteoporosis vitd, calcium history of dvt provoked, no longer on AC dvt prophylaxis - lovenox full code reason for continued hospitalization: awaiting pt, ot, echo Quality Stroke Does the patient have a stroke diagnosis?: Yes Reason for No Anti-thrombotic by Day Two: N/A - Med Ordered VTE Prior VTE?: Yes VTE Risk Level:: Medical - moderate - high VTE Device Contraindication: Treatment Not Indicated VTE Drug Contraindication: N/A - Med Ordered
--- NOTE | 2023-03-31 11:40 | MHC.CM.PN ---
Pt is independent, she lives with her family, she does not have any home health services or med equipment. HCP completed here and uploaded into chart. Family to transport home upon DC. PCP confirmed: Areli Smith. CM to follow and assist with DC planning.
--- NOTE | 2023-03-31 12:50 | PC.NURSE ---
vss and up to date at this time. pt denies headache - has no complaints. neuros intact. pt awaiting result of ultrasound at this time. family bedside for support. call cardona placed within reach.
--- NOTE | 2023-03-31 20:02 | MHC.EDTECH ---
This tech took over care of patient at 1900,hourly rounds and vitals completed,patient ate 100% of super,and drank 360CC,patient ambulated to bathroom with a steady gait. Call cardona in reach
[2023-03-31] MEDS: Atorvastatin Calcium 80 MG TABLET PO (20:54)
--- NOTE | 2023-03-31 20:55 | PC.NURSE ---
Patient is alert and oriented x3. Patient reports headache 7/10, medicated with Tylenol 650 mg. VSS. Patient reports difficulty with word finding resolved, neuro's intact at present. Call cardnoa placed within patient's neli, light dimmed. Patient in a hospital bed, speaking on the phone to her family members.
--- NOTE | 2023-03-31 22:36 | MHC.EDTECH ---
Hourly rounds and vitals completed,patient ambulated to the bathroom with a steady gait.Patient was placed in hospital bed for comfort,belonging list done and copy placed in chart. call cardona in reach
--- NOTE | 2023-04-01 00:07 | MHC.EDTECH ---
Hourly rounds and vitals completed,patient is sleeping,resp.rate WNL.call cardona within reach
[2023-04-01 02:28] VITALS: BP 114/66; PULSE 71; RESP 16; TEMP 36.7; O2SAT 95
--- NOTE | 2023-04-01 02:30 | MHC.EDTECH ---
Hourly rounds and vitals completed,patient sleeping and comfortable,call cardona at bedside
[2023-04-01] MEDS: 0.9 % Sodium Chloride Flush 3 ML SYRINGE IVFLUSH ×2 (03:12→08:10)
[2023-04-01 05:56] VITALS: BP 109/67; PULSE 78; RESP 16; TEMP 36.6; O2SAT 95
--- NOTE | 2023-04-01 05:57 | MHC.EDTECH ---
Hourly rounds and vitals completed,patient is sleeping,call cardona in reach
[2023-04-01] MEDS: Levothyroxine Sodium 75 MCG TABLET PO (06:41)
[2023-04-01] MEDS: Cholecalciferol (Vitamin D3) 25 MCG TABLET 50 MCG PO (08:07)
[2023-04-01] MEDS: Enoxaparin Sodium 40 MG/0.4 ML SYRINGE SUBCUT (08:08)
[2023-04-01] MEDS: Clopidogrel Bisulfate 75 MG TABLET PO (08:08)
--- NOTE | 2023-04-01 11:23 | PM.CNGS ---
History of Present Illness Consult details Consult date: 04/01/23 Reason for consult: other (Carotid stenosis with stroke) Narrative: Very pleasant 57-year-old female presents to the hospital with left-sided weakness. She had initially an infusion on the left upper extremity. Day or 2 after the infusion she had some left-sided discomfort but did not pay much attention as she thought it was related to her infusion. A day after she reported significant left-sided weakness and then also noted left leg weakness. At that time she called her primary care and was requested to come to the emergency room. Upon presentation it was discovered that she had a stroke and on workup demonstrated high-grade right carotid stenosis. She now presents to us for vascular evaluation. Upon discussion with her she reports that she quit smoking about 10 years prior and is a nondiabetic. In terms of activity and function she walks over 2 miles with no difficulty in addition she has no difficulty climbing 2 flights of stairs. Review of Systems Review of Systems: Yes all other systems are reviewed and are negative Constitutional: Constitutional: Reports no additional constitutional complaints ENT: Reports Normal hearing present Cardiovascular: Cardiovascular: Denies chest pain, Denies chest pain at rest, Denies chest pain with activity and Denies pedal edema Respiratory: Respiratory: Denies cough Gastrointestinal: Gastrointestinal: Denies abdominal pain Musculoskeletal: Musculoskeletal: Denies abnormal gait, Denies muscle cramps and Denies radiating pain into limb Integumentary/Breasts: Skin/Breast: Denies skin ulcer and Denies wounds Neurologic: Reports Normal hearing present and Denies abnormal gait Psychiatric: Psychiatric: Reports no additional psychiatric complaints [facility] Past Medical History Medical History DVT (deep venous thrombosis) Graves disease Age related osteoporosis Surgical History Surgical History H/O thyroidectomy Social History Social History Alcohol intake: current Alcohol intake frequency: a few times a week Alcohol type: beer Patient Tobacco Use Status: Never used Tobacco Smoked in Last 30 Days: No Use of substances other than those prescribed or required for medical reasons: No Advance Directives: No Advance Directives Information Provided: No Nutrition Risks: No Nutritional Risk Patient : No service: No Meds Allergies Allergy/AdvReac Type Severity Reaction Status Date / Time Penicillins Allergy Anaphylaxis Verified 03/30/23 11:57 sulfamethoxazole Allergy Confusion Verified 03/30/23 11:57 [From Bactrim] trimethoprim [From Bactrim] Allergy Confusion Verified 03/30/23 11:57 aspirin [ASA] AdvReac Itching Verified 03/30/23 11:57 Active Medications: Current Medications Acetaminophen (Acetaminophen 325 Mg Tablet) 650 mg PO Q6H PRN PRN Reason: Pain, Mild (Pain Scale 1-3) Last Admin: 03/31/23 20:47 Dose: 650 mg Atorvastatin Calcium (Atorvastatin Calcium 80 Mg Tablet) 80 mg PO BEDTIME [facility] Last Admin: 03/31/23 20:54 Dose: 80 mg Calcium Carbonate (Calcium Carbonate 500 Mg Tablet) 500 mg PO DAILY [facility] Last Admin: 04/01/23 08:07 Dose: 500 mg Clopidogrel Bisulfate (Clopidogrel Bisulfate 75 Mg Tablet) 75 mg PO DAILY [facility] Last Admin: 04/01/23 08:08 Dose: 75 mg Enoxaparin Sodium (Enoxaparin Sodium 40 Mg/0.4 Ml Syringe) 40 mg SUBCUT Q24H [facility] Last Admin: 04/01/23 08:08 Dose: 40 mg Levothyroxine Sodium (Levothyroxine Sodium 75 Mcg Tablet) 75 mcg PO DAILY@0600 [facility] Last Admin: 04/01/23 06:41 Dose: 75 mcg Sodium Chloride (0.9 % Sodium Chloride Flush 3 Ml Syringe) 3 ml IVFLUSH QSHIFT [facility] Last Admin: 04/01/23 08:10 Dose: 3 ml Vitamin D (Cholecalciferol (Vitamin D3) 25 Mcg Tablet) 50 mcg PO DAILY [facility] Last Admin: 04/01/23 08:07 Dose: 50 mcg Home Medications Medication Instructions Recorded Confirmed Last Taken Type calcium carbonate 500 mg calcium 500 mg PO DAILY 03/30/23 03/30/23 Unknown History (1,250 mg) tablet cholecalciferol (vitamin D3) 50 50 mcg PO DAILY 03/30/23 03/30/23 Unknown History mcg (2,000 unit) tablet levothyroxine 75 mcg tablet 75 mcg PO DAILY 03/30/23 03/30/23 Unknown History Physical Exam Vital Signs: Vital Signs: Last Vital Signs Temp 97.8 F 04/01/23 05:56 Pulse 78 01/10/24 05:56 Resp 16 04/01/23 05:56 BP 109/67 04/01/23 05:56 Pulse Ox 95 04/01/23 05:56 O2 Del Method Room Air 04/01/23 02:28 BMI result Body Mass Index 26.6 Const: General: cooperative, healthy appearing and comfortable Orientation/consciousness: oriented to person, oriented to place and oriented to time HEENT: Head: Yes normal to inspection Neck: Neck: Yes normal visual inspection Carotids: no bruits Chest: Chest palpation & inspection: normal inspection of the chest Resp: Effort & Inspection: normal respiratory effort and able to speak in complete sentences Auscultation: clear to auscultation bilaterally, no crackles, no rales, no rhonchi and no wheezes Cardio: Rate: regular rate Rhythm: regular rhythm Heart sounds: S1 normal heart sound present and S2 normal heart sound present Bruits: no carotid bruits Peripheral pulses: Peripheral pulses 2+ throughout GI: Inspection: Yes normal to inspection Skin: Wounds: no wounds Hair: normal Neuro: General: oriented to person, oriented to place and oriented to time Cranial nerves: Yes CN's II-XII intact bilaterally and Yes Normal hearing present Cognition (Neuro): normal cognition Motor exam (neuro): 5/5 motor strength present throughout Extrem: Other: venous exam: No significant superficial varicosities or spider telangiectasias, minimal edema General: No clubbing, No cyanosis and No edema Psych: Appearance: grossly normal Mental Status: mental status grossly normal Speech and movement: Normal speech and movement present Results Labs 03/31/23 05:06 03/31/23 05:06 Labs: All other labs normal. Imaging Additional studies: CTA of carotids dated 03/30/2023 demonstrates right-sided stenosis of greater than 90%. MRI of 03/30/2023 demonstrates small acute cortical infarct in the right occipital lobe Assessment and Plan (1) Acute stroke due to stenosis of right carotid artery: Status: Acute Plan In short patient has an acute stroke. This is most likely related to the high-grade right carotid stenosis. She will require right carotid endarterectomy. Risks benefits complications of the surgery were discussed in detail with the patient. They agreed and would like to move forward. She will require cardiac risk stratification prior to discharge. She will be scheduled within the next 2 weeks or so. Thank you for allowing us to assist in her care. If there are any questions or concerns please do not hesitate to contact us. Case was discussed with hospitalist team. Order for cardiology consult was placed at 09:29 this morning Procedures Date of Service Date of Service: 04/01/23
--- NOTE | 2023-04-01 11:54 | PM.CNCAR ---
History of Present Illness History of Present Illness Date of Service: 04/01/23 Requesting physician: Martin Barajas Consult reason: pre-op evaluation Chief complaint: CVA Narrative: I was consulted to see Deandra in cardiology consultation today for preoperative cardiovascular risk stratification. Patient presented with stroke-like symptoms. Patient had weakness in her left hand as well as numbness in the left leg. Came to the hospital. Symptoms resolved. Subsequent workup shows severe right carotid stenosis. Patient says she is extremely active walks about 2-1/2 miles in 30 minutes on a regular basis. Goes up and down the stairs without any issues. Her she does say that when she walks she does get cramp in her left leg which usually continues to walk with. No clear evaluation for peripheral vascular disease. She said she had a DVT 14 years ago and had a CRISS at that time and was told that she had some plaque buildup in her aorta. Although not a medical therapy. She has strong family history for premature coronary artery disease. She is a prior smoker. Has hyperlipidemia but currently not on any treatment. She watches her diet. She denies any exertional chest pain or shortness of breath. No heart failure symptoms. Review of Systems Constitutional: Constitutional: Reports no additional constitutional complaints Eyes: Eyes: Reports no additional eye complaints Cardiovascular: Cardiovascular: Reports no additional cardiovascular complaints Respiratory: Respiratory: Reports no additional respiratory complaints Gastrointestinal: Gastrointestinal: Reports no additional gastrointestinal complaints Genitourinary: Genitourinary: Reports no additional female genitourinary complaints Musculoskeletal: Musculoskeletal: Reports no additional musculoskeletal complaints Psychiatric: Psychiatric: Reports no additional psychiatric complaints Endocrine: Endocrine: Reports no additional endocrine complaints [facility] Past Medical History Medical History DVT (deep venous thrombosis) Graves disease Age related osteoporosis Surgical History Surgical History H/O thyroidectomy Social History Social History Alcohol intake: current Alcohol intake frequency: a few times a week Alcohol type: beer Patient Tobacco Use Status: Never used Tobacco Smoked in Last 30 Days: No Use of substances other than those prescribed or required for medical reasons: No Advance Directives: No Advance Directives Information Provided: No Nutrition Risks: No Nutritional Risk Patient : No service: No Meds Allergies Allergy/AdvReac Type Severity Reaction Status Date / Time Penicillins Allergy Anaphylaxis Verified 03/30/23 11:57 sulfamethoxazole Allergy Confusion Verified 03/30/23 11:57 [From Bactrim] trimethoprim [From Bactrim] Allergy Confusion Verified 03/30/23 11:57 aspirin [ASA] AdvReac Itching Verified 03/30/23 11:57 Active Medications: Current Medications Acetaminophen (Acetaminophen 325 Mg Tablet) 650 mg PO Q6H PRN PRN Reason: Pain, Mild (Pain Scale 1-3) Last Admin: 03/31/23 20:47 Dose: 650 mg Atorvastatin Calcium (Atorvastatin Calcium 80 Mg Tablet) 80 mg PO BEDTIME [facility] Last Admin: 03/31/23 20:54 Dose: 80 mg Calcium Carbonate (Calcium Carbonate 500 Mg Tablet) 500 mg PO DAILY [facility] Last Admin: 04/01/23 08:07 Dose: 500 mg Clopidogrel Bisulfate (Clopidogrel Bisulfate 75 Mg Tablet) 75 mg PO DAILY [facility] Last Admin: 04/01/23 08:08 Dose: 75 mg Enoxaparin Sodium (Enoxaparin Sodium 40 Mg/0.4 Ml Syringe) 40 mg SUBCUT Q24H [facility] Last Admin: 04/01/23 08:08 Dose: 40 mg Levothyroxine Sodium (Levothyroxine Sodium 75 Mcg Tablet) 75 mcg PO DAILY@0600 [facility] Last Admin: 04/01/23 06:41 Dose: 75 mcg Sodium Chloride (0.9 % Sodium Chloride Flush 3 Ml Syringe) 3 ml IVFLUSH QSHIFT [facility] Last Admin: 04/01/23 08:10 Dose: 3 ml Vitamin D (Cholecalciferol (Vitamin D3) 25 Mcg Tablet) 50 mcg PO DAILY [facility] Last Admin: 04/01/23 08:07 Dose: 50 mcg Home Medications Medication Instructions Recorded Confirmed Last Taken Type calcium carbonate 500 mg calcium 500 mg PO DAILY 03/30/23 03/30/23 Unknown History (1,250 mg) tablet cholecalciferol (vitamin D3) 50 50 mcg PO DAILY 03/30/23 03/30/23 Unknown History mcg (2,000 unit) tablet levothyroxine 75 mcg tablet 75 mcg PO DAILY 03/30/23 03/30/23 Unknown History Physical Exam Vital Signs: Vital Signs: Last Vital Signs Temp 97.8 F 04/01/23 05:56 Pulse 78 04/01/23 05:56 Resp 16 04/01/23 05:56 BP 109/67 04/01/23 05:56 Pulse Ox 95 04/01/23 05:56 O2 Del Method Room Air 04/01/23 02:28 BMI result Body Mass Index 26.6 Const: General: cooperative, comfortable, no acute distress, alert and awake Nutritional Appearance: average body habitus Orientation/consciousness: patient oriented x3 Limitations: no limitations HEENT: Head: Yes normocephalic and Yes atraumatic Neck: Neck: Yes trachea midline, Yes supple and Yes no JVD Resp: Effort & Inspection: normal respiratory effort Auscultation: clear to auscultation bilaterally Cardio: Jugular venous distension: no JVD Palpation: normal PMI Rate: regular rate Rhythm: regular rhythm Heart sounds: S1 normal heart sound present, S2 normal heart sound present, no click, no gallops, no murmurs and no rubs GI: Auscultation: normal bowel sounds Skin: General skin exam: no rashes or lesions noted Neuro: General: patient oriented x3 and no focal motor deficits Extrem: General: Yes no clubbing, cyanosis or edema Psych: Appearance: grossly normal Objective Labs and Meds 03/31/23 05:06 03/31/23 05:06 Assessment and Plan (1) Preoperative cardiovascular examination: Status: Acute Preoperative cardiovascular risk stratification this middle-aged woman for critical right internal carotid artery stenosis presenting with a stroke. Patient needs surgery done quickly given her anatomy. Patient also requires aggressive medical therapy. Unfortunately she has allergic reaction to aspirin and can continue with Plavix and/or Brilinta. Would also start on high-intensity statin therapy with Lipitor 80 mg of rosuvastatin 40 mg daily with target goal LDL closer to 50 mg/dL. From preoperative cardiovascular perspective, she is at extremely good workload and has no symptoms as more than 4 Mets of physical activity without any cardiac symptoms. Carotid endarterectomy is considered intermediate risk surgery and as per ACC aha guidelines she is optimized to undergo surgery with low risk for perioperative cardiovascular morbidity mortality. I had a very detailed discussion about pathophysiology of atherosclerosis and management. She understands them well. Encouraged to continue maintain aggressive lifestyle modification which she already does. She also symptoms suggestive claudication in the left lower extremity and should consider lower extremity duplex once she is discharged from the hospital. Will sign of the case. Thank you for allowing me to partake in her care Procedures Date of Service Date of Service: 04/01/23
[2023-04-01 12:12] VITALS: BP 103/83; PULSE 79; RESP 16; O2SAT 97
--- NOTE | 2023-04-01 12:28 | PM.DS ---
DS: Providers Provider Date of Service: 04/01/23 Date of admission: 03/30/23 15:11 Primary care physician: Areli Smith MD Consults: 03/30/23 14:59 Consult to Neurology Routine Consulting Provider: Margret Medley Reason for consultation: cva 03/30/23 16:21 Consult to Vascular Surgery Routine Consulting Provider: [facility] Reason for consultation: CLINTON stenosis with cva 04/01/23 09:29 Consult to Cardiology Routine Consulting Provider: [facility] Reason for consultation: Cardiac risk stratifications, post Stroke. DS: Diagnosis Discharge Diagnosis (1) Acute stroke due to stenosis of right carotid artery: Status: Acute (2) Cerebrovascular accident: Status: Acute DS: Summary Hospital Course Hospital Course: Admission note HPI 57F PMH osteoporosis, graves s/p thyroidectomy now on levothyroxine, hormone therapy provoked DVT, presented with left sided weakness. patient reports waking up on am day prior to presentation with left hand weakness and numbness, worse in distal hand. on am of admission woke up with left lower extremity weakness. in ED noted to have concern for right parietal occiptal cva on CTH. Hospital course The patient was admitted for evidence of acute right occipital lobe cva due to CLINTON 90% stenosis in patient with mortgage accounting clerk. At time of presentation she was out of window for intervention. Started on plavix (asa allergy) and statin as she was evaluated by neurologist who recommended ASA and Plavix. Echo was done with no abnormalities. Carotid images were consistent with CLINTON 90% Stenosis. Vascular surgery evaluated the patient and she will follow as outpatient in 2 weeks for Endrathectomy by dr Couch. seen by OT\PT who recommended home services as she recovered well from the left sided weakness on presentation almost back to her baseline. Start Plavix 75 mg daily Start Atorvastatin 80mg Bedtime To follow with dr Couch as planned Time Attestation Discharge coordination time: Greater than 30 minutes Quality: Safe Use of Opioids Does Pt have an Active Cancer Diagnosis on the Problem List?: No Quality: Stroke Does the patient have a stroke diagnosis?: Yes Reason for No Anti-thrombotic at DC: N/A - Med Ordered Reason for No Anticoagulant at DC: N/A - Med Ordered Reason Not Initiating IV-Tpa: Not indicated Reason for No Anti-thrombotic by Day Two: N/A - Med Ordered Reason for No Statin at DC: N/A - Med Ordered Physical Exam Vital Signs: Vital Signs: Last Vital Signs Temp 97.8 F 04/01/23 05:56 Pulse 79 04/01/23 12:12 Resp 16 04/01/23 12:12 BP 103/83 04/01/23 12:12 Pulse Ox 97 04/01/23 12:12 O2 Del Method Room Air 04/01/23 12:12 BMI result Body Mass Index 26.6 Const: Other: Constitutional : Awake, interactive, not in distress Neck : Normal inspection, Supple Cardiovascular : RRR, no JVP, no lower extremity edema Respiratory : good bilateral air entry, no crackles, wheezes or rhonchi Gastrointestinal: soft, lax, Normal bowel sounds, Non tender Skin : Warm, Dry Neurological : Alert & oriented x3, weakness 4+/5 on left upper and lower extremities DS: Data Imaging MRI - head: Radiologist's impression: ITS Impressions Head CT 03/30/23 12:40 IMPRESSION: Loss of quinteros to white matter differentiation in the right parieto-occipital region concerning for acute ischemia. MRI of brain is recommended. Findings were reviewed and discussed with KARLY Clemente at 1:40 PM on 03/30/2023. Head/Neck CTA 03/30/23 14:41 IMPRESSION: CT HEAD: Hypoattenuation the right posterior parietal lobe concerning for an evolving acute infarction. No evidence of gross hemorrhage. CTA NECK: Severe stenosis at the origin of the right internal carotid artery estimated as greater than 90%. Stenosis at the proximal left internal carotid artery results in 50% stenosis. Left vertebral artery is nondominant and occluded from its origin but reconstitutes in the mid V2 segment. Dominant right vertebral artery is patent. CTA HEAD: No large vessel occlusion or significant stenosis within the intracranial circulation. This critical result was discussed with Dr. Cantu on 03/30/2023 2:56 PM, and it was ascertained that the content and urgency of the report was understood at the time of direct communication. Brain MRI 03/30/23 20:04 IMPRESSION: There is a small acute cortical infarct located within the right occipital lobe. This finding is superimposed upon multiple acute to subacute border zone infarcts located between the major vascular territories of the right cerebral hemisphere. Scattered chronic small vessel ischemic changes are visualized within the periventricular white matter. No acute hemorrhage. Discharge Plan Discharge Anticipated Discharge Date/Time: 04/01/23 12:24 Patient Disposition: Home Health Service Discharge Diagnosis: Acute stroke Referrals: Areli Smith MD [Primary Care Provider] - 1 Week Discharge Medications: New atorvastatin 80 mg Tablet 80 mg PO BEDTIME Qty: 90 0RF clopidogrel 75 mg Tablet 75 mg PO DAILY Qty: 90 0RF Continued levothyroxine 75 mcg tablet 75 mcg PO DAILY calcium carbonate 500 mg calcium (1,250 mg) Tablet 500 mg PO DAILY cholecalciferol (vitamin D3) 50 mcg (2,000 unit) Tablet 50 mcg PO DAILY Discharge Orders: Discharge Order (Routine); Ordered 04/01/23 Ordered By: Martin Barajas Diet: Advance to usual diet Activity on Discharge: As tolerated Stand Alone Forms: Patient Portal Discharge page Care Plan Goals: Read below Health Concerns: Read below Plan of Treatment: Read below Assessment: You were found to have acute stroke as a result of severly narrowed carotid artery. Evaluated by Neurologist who recommended medical management with Plavix and Cholestrol medication. Vascular surgeon who will do surgical intervention in 2 weeks. Start Plavix 75 mg daily Start Atorvastatin 80mg Bedtime To follow with dr Couch as planned
--- NOTE | 2023-04-01 12:36 | W.MHC.F2F ---
Service Date Service Date: 04/01/23 Encounter Date of encounter: 04/01/23 Reasons for Services Signs and symptoms assessed: Acute stroke with left sided weakness Reason for physical therapy: home safety and mobility and therapeutic exercises Homebound: Leaving the home is medically contraindicated at this time without the asist of a device and/or another person due th the listed conditions above and below. Reason homebound: unsteady gait / fall risk Certification: Based on the above findings, I certify that this patient is confined to the home and needs intermittent retirement care, physical therapy and/or speech therapy, or continues to need occupational therapy. The patient is under my care, and I have initiated the establishment of the plan of care. The patient will be followed by a physician who will periodically review the plan of care. Time Spent With Patient Time: Total time managing care of this patient today ____ minutes.
--- NOTE | 2023-04-01 13:02 | PC.NURSE ---
Discharge plan reviewed with patient who vrbalized understanding
--- NOTE | 2023-04-02 07:19 | MHC.CM.PN ---
Patient d/c'd from [facility] before [facility] could be arranged. [facility] is unable to accept patient because they are not contracted with [facility]. Referral broadcasted in [facility]. [facility] is able to accept patient.
== END 2023-04-01 12:58 | disposition home health service (06) | DRG 45 ==
LOC: HO.ED 15:02 → HO.EDOVER 15:12
PROVIDERS: Physician Assistant Medical; Admitting Provider Internal Medicine; Emergency Provider Emergency Medicine; PCP Internal Medicine; Visit Provider Student in an Organized Health Care Education/Training Program
DX: I63.131 Cerebral infarction due to embolism of right carotid artery (principal); G81.94 Hemiplegia, unspecified affecting left nondominant side; E89.0 Postprocedural hypothyroidism; M81.0 Age-related osteoporosis without current pathological fracture; R29.701 NIHSS score 1; Z20.822 Contact with and (suspected) exposure to COVID-19; Z86.718 Personal history of other venous thrombosis and embolism; Z79.83 Long term (current) use of bisphosphonates; Z79.890 Hormone replacement therapy; Z79.899 Other long term (current) drug therapy
CPT/HCPCS: 0241U; 36415; 70450; 70496; 70498; 70551; 80048; 80053; 80061; 83735; 85025; 85027; 93005; 93306; 93356; 97110; 97162; 97165; 99285; J1650; Q9957; Q9967

== ENCOUNTER → 2023-03-30 15:01 | Outpatient (BNV) | payer OTHER, SELFPAY | PROVIDERS: Emergency Provider Emergency Medicine; PCP Internal Medicine; Visit Provider Internal Medicine | DX: I63.231 Cerebral infarction due to unspecified occlusion or stenosis of right carotid arteries (principal); I63.131 Cerebral infarction due to embolism of right carotid artery | CPT/HCPCS: 99223; 99233; 99239; G0180 ==

== ENCOUNTER 2023-03-30 15:11 | Outpatient (BNV) | payer OTHER, SELFPAY | END 2023-03-30 15:14 | PROVIDERS: Admitting Provider Internal Medicine; Emergency Provider Emergency Medicine; PCP Internal Medicine; Visit Provider Internal Medicine Cardiovascular Disease | DX: I63.9 Cerebral infarction, unspecified (principal) | CPT/HCPCS: 93010 ==

== ENCOUNTER 2023-03-30 15:11 | Outpatient (BNV) | payer OTHER, SELFPAY | END 2023-03-31 07:00 | PROVIDERS: Admitting Provider Internal Medicine; Emergency Provider Emergency Medicine; PCP Internal Medicine; Visit Provider Internal Medicine Cardiovascular Disease | DX: I63.9 Cerebral infarction, unspecified (principal) | CPT/HCPCS: 93306 ==

== ENCOUNTER → 2023-03-30 15:11 | Outpatient (BNV) | payer OTHER, SELFPAY | PROVIDERS: Admitting Provider Internal Medicine; Emergency Provider Emergency Medicine; PCP Internal Medicine; Visit Provider Internal Medicine Cardiovascular Disease | DX: Z01.810 Encounter for preprocedural cardiovascular examination (principal) | CPT/HCPCS: 99222 ==

== ENCOUNTER → 2023-03-30 15:11 | Outpatient (BNV) | payer OTHER, SELFPAY | PROVIDERS: Admitting Provider Internal Medicine; Emergency Provider Emergency Medicine; PCP Internal Medicine; Visit Provider Surgery Vascular Surgery | DX: I63.231 Cerebral infarction due to unspecified occlusion or stenosis of right carotid arteries (principal) | CPT/HCPCS: 99222 ==

== ENCOUNTER 2023-04-20 06:29 | Inpatient (IN) | payer OTHER, SELFPAY ==
[2023-04-14 12:29] VITALS: BP 115/62; PULSE 72; RESP 18; O2SAT 99; BMI 26.1
--- NOTE | 2023-04-14 12:47 | HO.ANESPROP2 ---
Documented by User: Katelyn Iglesias NP 04/17/23 09:31 HPI - Anesthesia Eval Consult details Narrative: 57yo F for Right Carotid Endarterectomy C admit with stroke/90% stenosis of R ICA. Mild L upper and lower extremity weakness residual. Started on plavix (asa allergy) and lipitor. Cardiac eval and cleared during inpt 03/2023 No recent illness No SOB/CP with >4 mets (walks miles daily) [facility] admit with stroke. Mild L extremity weakness residual. Started on plavix (asa allergy) and lipitor. Hx DVT RUE s/p thrombectomy. No anticoag since 2009 until recent stroke PMFSH Past Medical History Medical History Hearing difficulty of both ears Hiatal hernia GERD (gastroesophageal reflux disease) CVA (cerebral vascular accident) On anticoagulant therapy Elevated cholesterol DVT (deep venous thrombosis) Graves disease Age related osteoporosis Family History Family history of problems with anesthesia: No Surgical History Surgical History History of endometrial ablation H/O colonoscopy History of embolectomy H/O thyroidectomy History of Problems with Anesthesia: No Social History Social History Are you a primary healthcare social worker to a significant other at home: No Do you presently have visiting nurse or other home services: No Alcohol intake: current Alcohol intake frequency: a few times a month Alcohol type: beer Patient Tobacco Use Status: Former Tobacco user Use of substances other than those prescribed or required for medical reasons: No Have you been hit, kicked, punched, or otherwise hurt by someone within the past year? If so, by whom?: No Are you DNR?: No Advance Directives: No Advance Directives Information Provided: No Advance Directives on File: No Recently lost weight without trying: No Eating poorly because of decreased appetite: No Nutrition Risks: No Nutritional Risk Patient : No : No Poor oral hygiene: No service: No Meds Allergies Allergy/AdvReac Type Severity Reaction Status Date / Time bee pollen [bee stings] Allergy Redness of Verified 04/14/23 12:17 Skin Peanut Butter Allergy Swelling Verified 04/14/23 12:18 Penicillins Allergy Anaphylaxis Verified 03/30/23 11:57 sulfamethoxazole Allergy Rash Verified 04/14/23 12:16 [From Bactrim] trimethoprim [From Bactrim] Allergy Rash Verified 04/14/23 12:16 aspirin [ASA] AdvReac Itching Verified 03/30/23 11:57 Home Medications Medication Instructions Recorded Confirmed Last Taken Type cholecalciferol (vitamin D3) 50 50 mcg PO DAILY 03/30/23 04/14/23 04/19/23 History mcg (2,000 unit) tablet levothyroxine 75 mcg tablet 75 mcg PO DAILY@0600 03/30/23 04/20/23 04/19/23 History Exam Height,Weight and Vital Signs: Height 5 ft 5 in Weight 71.214 kg Last Vital Signs Pulse 72 04/14/23 12:29 Resp 18 04/14/23 12:29 BP 115/62 04/14/23 12:29 Pulse Ox 99 04/14/23 12:29 O2 Del Method Room Air 04/14/23 12:29 Narrative Narrative: EKG 03/2023 Vent. Rate : 074 BPM Atrial Rate : 074 BPM P-R Int : 170 ms QRS Dur : 070 ms QT Int : 384 ms P-R-T Axes : 061 -05 045 degrees QTc Int : 426 ms Normal sinus rhythm Normal ECG When compared with ECG of 03-APR-2009 11:00, Questionable change in QRS axis T wave amplitude has increased in Lateral leads ECHO 03/2023 Conclusions: - 1. Normal LV ejection fraction of 60 65% 2. Normal cardiac valvular Dopplers next 3. No clear evidence of intracardiac shunting on this study 4. No gross pericardial effusion CT angio head neck stroke 03/2023 IMPRESSION: CT HEAD: Hypoattenuation the right posterior parietal lobe concerning for an evolving acute infarction. No evidence of gross hemorrhage. CTA NECK: Severe stenosis at the origin of the right internal carotid artery estimated as greater than 90%. Stenosis at the proximal left internal carotid artery results in 50% stenosis. Left vertebral artery is nondominant and occluded from its origin but reconstitutes in the mid V2 segment. Dominant right vertebral artery is patent. CTA HEAD: No large vessel occlusion or significant stenosis within the intracranial circulation. Airway Mallampati Class: II TM Dist: >3cm Neck ROM: Full Loose/Missing/Broken Teeth: No (1 x left lower crown.) Heart: RRR Lungs: CTAB Assessment and Plan Assessment Anesthesia Assessment: Anesthesia Plan Discussed and PAT Visit Final Anesthetic Review Family History of Problems with Anesthesia: No History of Problems with Anesthesia: No Documented by User: Tatyana Sparrow MD 04/20/23 09:15 HPI - Anesthesia Eval Consult details Narrative: 57yo F for Right Carotid Endarterectomy [facility] admit with stroke/90% stenosis of R ICA. Mild L upper and lower extremity weakness residual. Started on plavix (asa allergy) and lipitor. Cardiac eval and cleared during inpt 03/2023 No recent illness No SOB/CP with >4 mets (walks miles daily) [facility] admit with stroke 03/30/2023. Left sided weakness residual. Started on plavix (asa allergy) and lipitor. Hx DVT RUE s/p thrombectomy. No anticoag since 2009 until recent stroke. Last dose of plavix yesterday 04/19/23 [facility] Past Medical History Medical History Hearing difficulty of both ears Hiatal hernia GERD (gastroesophageal reflux disease) CVA (cerebral vascular accident) On anticoagulant therapy Elevated cholesterol DVT (deep venous thrombosis) Graves disease Age related osteoporosis Family History Family history of problems with anesthesia: No Surgical History Surgical History History of endometrial ablation H/O colonoscopy History of embolectomy H/O thyroidectomy History of Problems with Anesthesia: No Social History Social History Are you a primary healthcare social worker to a significant other at home: No Do you presently have visiting nurse or other home services: No Alcohol intake: current Alcohol intake frequency: a few times a month Alcohol type: beer Patient Tobacco Use Status: Former Tobacco user Use of substances other than those prescribed or required for medical reasons: No Have you been hit, kicked, punched, or otherwise hurt by someone within the past year? If so, by whom?: No Are you DNR?: No Advance Directives: No Advance Directives Information Provided: No Advance Directives on File: No Recently lost weight without trying: No Eating poorly because of decreased appetite: No Nutrition Risks: No Nutritional Risk Patient : No : No Poor oral hygiene: No service: No Meds Allergies Allergy/AdvReac Type Severity Reaction Status Date / Time bee pollen [bee stings] Allergy Redness of Verified 04/14/23 12:17 Skin Peanut Butter Allergy Swelling Verified 04/14/23 12:18 Penicillins Allergy Anaphylaxis Verified 03/30/23 11:57 sulfamethoxazole Allergy Rash Verified 04/14/23 12:16 [From Bactrim] trimethoprim [From Bactrim] Allergy Rash Verified 04/14/23 12:16 aspirin [ASA] AdvReac Itching Verified 03/30/23 11:57 Home Medications Medication Instructions Recorded Confirmed Last Taken Type cholecalciferol (vitamin D3) 50 50 mcg PO DAILY 03/30/23 04/14/23 04/19/23 History mcg (2,000 unit) tablet levothyroxine 75 mcg tablet 75 mcg PO DAILY@0600 03/30/23 04/20/23 04/19/23 History Exam Height,Weight and Vital Signs: Height 5 ft 5 in Weight 71.214 kg Last Vital Signs Pulse 72 04/14/23 12:29 Resp 18 04/14/23 12:29 BP 115/62 04/14/23 12:29 Pulse Ox 99 04/14/23 12:29 O2 Del Method Room Air 04/14/23 12:29 Vital Signs Temp Pulse Resp BP Pulse Ox O2 Del Method 04/20/23 07:05 97.1 F 67 18 124/74 98 Room Air Pertinent Lab Results Pertinent Lab Results: Lab Results 04/14/23 Range/Units 13:30 Blood Type B Positive Antibody Screen NEGATIVE Airway Mallampati Class: II TM Dist: >3cm Neck ROM: Full Assessment and Plan Assessment Anesthesia Assessment: Anesthesia Plan Discussed, PAT Visit and Chart Reviewed Final Anesthetic Review Family History of Problems with Anesthesia: No History of Problems with Anesthesia: No NPO: Yes ASA Class: III Final Preanesthetic Review: No Changes in Pt Med Stat, Meds/Allgs Chart Reviewed, Consent Obtained/Reviewed and Anes Risks/Benef Reviewed Patient Risk: High Procedure Risk: Intermediate Assessment/Block/Sedation in SS: Assess/Block/Sedation-SS Anesthetic Plan Anesthetic Plan: GA and Other (arterial line, ICU post op) Disposition: Standard PACU and Inp. Admit - ICU
[2023-04-20] VITALS (19 sets, daily range): BP systolic 98–152; BP diastolic 49–92; PULSE 67–110; RESP 10–18; TEMP 35.7–37.2; O2SAT 90–99; BMI 26.0; BMI 25.8
[2023-04-20] MEDS: vancomycin HCL 1,000 MG in 0.9 % Sodium Chloride 250 ML 270 MG IV ×2 (07:01→20:03)
--- NOTE | 2023-04-20 07:46 | MHC.SHP ---
Pre-Procedural Eval Section A - 24 Hr Update-Section A only Date of Service: 04/20/23 The patient is an INPATIENT: No Changes since office visit: Yes Patient answered all questions The patient has been examined within 24 hours of the surgical procedure. The History & Physical has been completed within 30 days and I have reviewed it.: Yes Section B - Complete if H&P > 30 days Chief Complaint: Postop Allergies: Allergies Allergy/AdvReac Type Severity Reaction Status Date / Time bee pollen [bee stings] Allergy Redness of Verified 04/14/23 12:17 Skin Peanut Butter Allergy Swelling Verified 04/14/23 12:18 Penicillins Allergy Anaphylaxis Verified 03/30/23 11:57 sulfamethoxazole Allergy Rash Verified 04/14/23 12:16 [From Bactrim] trimethoprim [From Bactrim] Allergy Rash Verified 04/14/23 12:16 aspirin [ASA] AdvReac Itching Verified 03/30/23 11:57 Plan I have reviewed the history and physical and performed a pertinent physical examination on my patient. No changes have occurred unless specified. Time Spent With Patient Time: Total time managing care of this patient today ____ minutes.
--- NOTE | 2023-04-20 08:16 | PHA.MEDREC ---
Pharmacy Consult ? Medication Reconciliation Pharmacy has reviewed the medication reconciliation done by RN.
--- NOTE | 2023-04-20 10:39 | P.OP_ITS ---
Operative Note Operative Note Date of Service: 04/20/23 Narrative: Operative note by [facility] Preoperative diagnosis:1. Right Carotid stenosis 2. Prior cerebrovascular accident Postoperative diagnosis: Same Procedure: Right Carotid endarterectomy with patch angioplasty Surgeon:Jeremiah Couch M.D. Social Work Program Coordinator: Dr. Garcia Anesthesia: General Specimens: 1 Drains: 1 Estimated blood loss: 100 mL Indications: 57-year-old female who originally presented to the hospital with right-sided occipital stroke was found to have over 90% carotid stenosis on CTA. She now presents for operative intervention. The patient has signed the informed consent after reviewing risks, complications, benefits, and alternatives previously discussed with the patient. The patient was given the opportunity to ask any additional questions or voice any concerns. All quest ions were answered to the patient's satisfaction. Procedure in detail: Patient was taken to the operating room and placed in a supine position and prepped and draped in sterile manner with ChloraPrep. Longitudinal incision was made along the right anterior border of the sternocleidomastoid carried down through the subcutaneous fat and fascia. Hemostasis was obtained with electrocautery. The platysma muscle was then divided. The carotid sheath was identified in open. The vagus nerve, Ancef cervicalis, and hypoglossal nerves were identified and avoided. The common internal and external carotids were then freed from the surrounding tissue. At this point, 5000 units of heparin was administered and allowed to circulate for 5 minutes time to take effect. The internal, common, external carotids were clamped in that order. Once this was accomplished, we proceeded with the procedure. The carotid bulb was opened with an 11 blade and extended with Haines scissors through the very tight lesion into normal internal carotid artery. This was then extended down into the common carotid artery. We then placed a Giraldo shunt. Then the plaque was sharply excised proximally and an eversion endarterectomy was performed successfully at the external. The plaque tapered nicely on to the internal and no tacking sutures were necessary. Heparinized saline was injected and no evidence of flapping or other debris was noted. The remaining carotid was examined, which showed no debris or flaps present. At this point a XenoSure patch was brought on to the field. This was anastomosed to the artery using a 6 0 Prolene in a running fashion. Once approximately 4/5 of the patch was sewn in the shunt was then removed. Prior to the last stitch the internal carotid was back bled through this. Heparinized saline was instilled into the carotid. The last stitch was tied. Hemostasis was excellent. The internal carotid was gently occluded while while of the external and internal were open in that order. Finally the internal was then opened and flow was restored to the entire system. Hemostasis was achieved with interrupted 7-0 Prolene sutures. The wound was irrigated thoroughly. We then placed a 7 flat Gonzales-Ferrer drain. Deep layer was reapproximated using a 2-0 poly Sorb and finally the superficial layer with a 3-0 Polysorb. The skin was closed in a subcuticular manner. The patient awoke and neurologic status was checked and appeared to be intact. Sponge, needle and instrument counts were correct. The patient tolerated the procedure well. Returned to recovery with stable vitals. This note is constructed using voice recognition software. While every effort has been made to ensure accuracy, chart picker errors may have been included. Thank you for allowing me to participate in the care of your patient. Yours sincerely, Jeremiah Couch MD, FACS, R.P.V.I.
--- NOTE | 2023-04-20 10:58 | P.HPCC_ITS ---
History of Present Illness Date of Service: 04/20/23 Chief Complaint: R ICA Endarterectomy Patient is a 57 Y F w/ grave's disease, s/p thyroidectomy, prior DVT, and prior R parieto occipital?CVA on 03/30, not candidate for thrombolytics given outside?window, found to have 90% stenosis R internal carotid artery, now s/p endarterectomy?04/20, tolerated procedure well Review of Systems Review of Systems: Yes all other systems are reviewed and are negative [facility] Past Medical History Medical History Hearing difficulty of both ears Hiatal hernia GERD (gastroesophageal reflux disease) CVA (cerebral vascular accident) On anticoagulant therapy Elevated cholesterol DVT (deep venous thrombosis) Graves disease Age related osteoporosis Surgical History Surgical History History of endometrial ablation H/O colonoscopy History of embolectomy H/O thyroidectomy Social History Social History Are you a primary healthcare manager to a significant other at home: No Do you presently have visiting nurse or other home services: No Alcohol intake: current Alcohol intake frequency: a few times a month Alcohol type: beer Patient Tobacco Use Status: Former Tobacco user Use of substances other than those prescribed or required for medical reasons: No Have you been hit, kicked, punched, or otherwise hurt by someone within the past year? If so, by whom?: No Are you DNR?: No Advance Directives: No Advance Directives Information Provided: No Advance Directives on File: No Recently lost weight without trying: No Eating poorly because of decreased appetite: No Nutrition Risks: No Nutritional Risk Patient : No : No Poor oral hygiene: No service: No Meds Allergies Allergy/AdvReac Type Severity Reaction Status Date / Time bee pollen [bee stings] Allergy Redness of Verified 04/14/23 12:17 Skin Peanut Butter Allergy Swelling Verified 04/14/23 12:18 Penicillins Allergy Anaphylaxis Verified 03/30/23 11:57 sulfamethoxazole Allergy Rash Verified 04/14/23 12:16 [From Bactrim] trimethoprim [From Bactrim] Allergy Rash Verified 04/14/23 12:16 aspirin [ASA] AdvReac Itching Verified 03/30/23 11:57 Active Medications: Current Medications Acetaminophen (Acetaminophen 325 Mg Tablet) 650 mg PO Q6H PRN PRN Reason: Pain, Mild (Pain Scale 1-3) Fentanyl (Fentanyl Citrate/Pf 100 Mcg/2 Ml Vial) 25 mcg IVPUSH Q5M PRN; Protocol PRN Reason: Pain, Moderate(Pain Scale 4-6) Lactated Ringer's (Lr) 1,000 mls @ 100 mls/hr IVCONT .Q10H [facility] Vancomycin HCl 1,000 mg/ (Sodium Chloride) 270 mls @ 270 mls/hr IV POSTOP ONE Stop: 04/20/23 11:35 Morphine Sulfate (Morphine Sulfate 2 Mg/Ml Cartridge) 2 mg IVPUSH Q4H PRN; Protocol PRN Reason: Pain, Severe (Pain Scale 7-10) Ondansetron HCl (Ondansetron Hcl 4 Mg/2 Ml Vial) 4 mg IVPUSH ONCE PRN PRN Reason: Nausea and Vomiting Oxycodone HCl (Oxycodone Hcl Immed Release 5 Mg Tablet) 5 mg PO ONCE PRN PRN Reason: Pain, Severe (Pain Scale 7-10) Oxycodone HCl (Oxycodone Hcl Immed Release 5 Mg Tablet) 5 mg PO Q4H PRN PRN Reason: Pain, Moderate(Pain Scale 4-6) Pharmacy Consult (Consult Rx Vancomycin Dosing) 1 each MISCELLANE DAILY PRN PRN Reason: Consult order Pharmacy Consult (Consult Rx Vancomycin Dosing) 1 each MISCELLANE DAILY PRN PRN Reason: Consult order Sodium Chloride (0.9 % Sodium Chloride Flush 3 Ml Syringe) 3 ml IVFLUSH QSHIFT [facility] Home Medications Medication Instructions Recorded Confirmed Last Taken Type cholecalciferol (vitamin D3) 50 50 mcg PO DAILY 03/30/23 04/14/23 04/19/23 History mcg (2,000 unit) tablet levothyroxine 75 mcg tablet 75 mcg PO DAILY@0600 03/30/23 04/20/23 04/19/23 History Physical Exam Vital Signs: Vital Signs: Last Vital Signs Temp 97.1 F 04/20/23 07:05 Pulse 85 04/20/23 10:45 Resp 18 04/20/23 10:45 BP 102/69 04/20/23 10:45 Pulse Ox 97 04/20/23 10:45 O2 Del Method Room Air 04/20/23 10:45 O2 Flow Rate 6 04/20/23 10:40 BMI result Body Mass Index 26.0 Const: General: cooperative, healthy appearing, comfortable, no acute distress, well developed, alert, awake and Physically active Orientation/consciousness: patient oriented x3 HEENT: Head: Yes normal to inspection, Yes normocephalic and Yes atraumatic Eyes: General: appearance normal, both eyes and all related structures Neck: Other: R drain in place with some bright red blood; no appreciable fluctuance, induration Neck: Yes full ROM and Yes supple Chest: Chest palpation & inspection: normal inspection of the chest Resp: Other: no appreciable rales, rhonchi, wheezing Effort & Inspection: normal respiratory effort Cardio: Rate: regular rate Rhythm: regular rhythm GI: Inspection: Yes normal to inspection, No Abdominal wall edema and No distended Palpation (GI): Soft to palpation, not firm, nontender, no guarding and not rigid Skin: General skin exam: no rashes or lesions noted Neuro: General: patient oriented x3, tone normal, moves all extremities and no focal motor deficits Extrem: General: Yes normal to inspection, Yes capillary refill normal and Yes no clubbing, cyanosis or edema Psych: Appearance: grossly normal Assessment and Plan (1) Acute stroke due to stenosis of right carotid artery: Status: Resolved (2) FH: carotid endarterectomy: Status: Acute Plan Patient is a 57 Y F w/ grave's disease, s/p thyroidectomy, prior DVT, and prior R parieto occipital?CVA on 03/30, not candidate for thrombolytics given outside?window, found to have 90% stenosis R internal carotid artery, now s/p endarterectomy?04/20, tolerated procedure well N: prior CVA d/t R ICA stenosis CV: s/p R ICA endarterectomy R: no acute issues GI: advance diet as tolerated : no acute issues H: no acute issues; avoid chemical DVT prophylaxis immediately post-operative ID: no acute issues E: grave's disease, s/p thyroidectomy, on home levothyroxine P: no acute issues Total time managing care of this patient today: 60 minutes.
[2023-04-20] MEDS: Lactated Ringers 1,000 ML 100 ML IVCONT ×2 (11:45→22:50)
[2023-04-20] MEDS: oxyCODONE HCl Immed Release 5 MG TABLET PO ×3 (11:50→22:49)
[2023-04-20 12:25] LABS: Basophils Percent Auto 0.3 % (0-2); Eosinophils Percent Auto 0.1 % (0-4); Hematocrit 30.5 % (37.0-47.0); Hemoglobin 9.9 g/dl (12.0-16.0); Imm Gran Abs Auto 0.05 X10*3/uL (0.00-0.03); Imm Gran Pct Auto 0.5 % (0.0-0.4); Lymphocytes Absolute Auto 0.6 X10*3/uL (1.2-4.9); Lymphocytes Percent Auto 6.2 % (20-40); MANUAL DIFF FLAG SCAN; Mean Corpuscular HGB Conc 32.5 g/dl (31.0-35.0); Mean Corpuscular Hemoglobin 31.2 pg (27.0-33.0); Mean Corpuscular Volume 96.2 fL (80.0-98.0); Mean Platelet Volume 10.1 fL (9.4-12.3); Monocytes Absolute Auto 0.1 X10*3/uL (0.1-1.2); Monocytes Percent Auto 1.3 % (2-11); Neutrophils Absolute Auto 9.1 x10*3/uL (2.0-8.3); Neutrophils Percent Auto 91.6 % (45-73); Platelet Count 211 X10*3/uL (160-400); Red Blood Count 3.17 X10*6/uL (4.20-5.50); Red Cell Distribution Width 12.7 % (11.0-16.0); SCAN SMEAR FLAG 1
[2023-04-20 12:45] LABS: Anion Gap 17 (12-20); Blood Urea Nitrogen 8 mg/dL (9-16); Calcium 7.1 mg/dL (8.4-10.2); Carbon Dioxide 16 mmol/L (22-29); Chloride 108 mmol/L (96-108); Creatinine Clr Calc Pharmacy 117.2; Estimated Glomerular Filt Rate > 60; Glucose Random 91 mg/dL (60-115); Potassium 3.9 mmol/L (3.3-5.1); SLIDE REVIEW VERIFIED; Sodium 137 mmol/L (135-145)
[2023-04-20] MEDS: Morphine Sulfate 2 MG/ML CARTRIDGE IVPUSH (14:53)
[2023-04-20] MEDS: Calcium Gluconate/NaCl,Iso-Osm 1 GM/50 ML PLAST..BAG IV (16:10)
[2023-04-20] MEDS: 0.9 % Sodium Chloride Flush 3 ML SYRINGE IVFLUSH (16:12)
[2023-04-20] MEDS: Atorvastatin Calcium 80 MG TABLET PO (20:03)
[2023-04-21] VITALS (15 sets, daily range): BP systolic 97–136; BP diastolic 41–75; PULSE 73–98; RESP 10–16; TEMP 36.1–36.6; O2SAT 80–98; BMI 29.6
[2023-04-21] MEDS: oxyCODONE HCl Immed Release 5 MG TABLET PO (03:37)
[2023-04-21] MEDS: Levothyroxine Sodium 75 MCG TABLET PO (06:00)
[2023-04-21 06:03] LABS: MANUAL DIFF FLAG NO
[2023-04-21 06:05] LABS: Basophils Percent Auto 0.2 % (0-2); Hematocrit 33.6 % (37.0-47.0); Hemoglobin 10.9 g/dl (12.0-16.0); Imm Gran Pct Auto 0.8 % (0.0-0.4); Lymphocytes Absolute Auto 1.1 X10*3/uL (1.2-4.9); Lymphocytes Percent Auto 8.6 % (20-40); Mean Corpuscular HGB Conc 32.4 g/dl (31.0-35.0); Mean Corpuscular Hemoglobin 30.3 pg (27.0-33.0); Mean Corpuscular Volume 93.3 fL (80.0-98.0); Monocytes Percent Auto 7.3 % (2-11); Neutrophils Absolute Auto 10.9 x10*3/uL (2.0-8.3); Neutrophils Percent Auto 83.1 % (45-73); Platelet Count 241 X10*3/uL (160-400); Red Cell Distribution Width 12.9 % (11.0-16.0); White Blood Count 13.1 X10*3/uL (4.8-10.8)
[2023-04-21 06:18] LABS: Anion Gap 11 (12-20); Blood Urea Nitrogen 11 mg/dL (9-16); Calcium 8.4 mg/dL (8.4-10.2); Carbon Dioxide 26 mmol/L (22-29); Chloride 110 mmol/L (96-108); Creatinine Clr Calc Pharmacy 75.7; Estimated Glomerular Filt Rate > 60; Glucose Random 122 mg/dL (60-115); Potassium 3.9 mmol/L (3.3-5.1); Sodium 143 mmol/L (135-145)
--- NOTE | 2023-04-21 07:49 | PM.CCPN ---
Subjective Subjective Date of Service: 04/21/23 Interval History: no significant overnight events Critical Care Time (minutes): 0 Physical Exam Vital Signs: Vital Signs: Last Vital Signs Temp 96.9 F 04/21/23 03:00 Pulse 75 04/21/23 07:00 Resp 12 04/21/23 07:00 BP 109/43 L 04/21/23 07:00 Pulse Ox 97 04/21/23 07:29 O2 Del Method Nasal Cannula 04/21/23 07:29 O2 Flow Rate 2 04/21/23 07:00 Oxygen Flow Rate 2 04/21/23 07:29 BMI result Body Mass Index 29.6 Const: General: cooperative, healthy appearing, comfortable, no acute distress, well developed, alert, awake and Physically active Orientation/consciousness: patient oriented x3 HEENT: Head: Yes normal to inspection, Yes normocephalic and Yes atraumatic Eyes: General: appearance normal, both eyes and all related structures Neck: Other: R drain in place, clean, dry, intact Neck: Yes full ROM and Yes supple Chest: Chest palpation & inspection: normal inspection of the chest Resp: Other: no appreciable rales, rhonchi, wheezing Effort & Inspection: normal respiratory effort Cardio: Rate: regular rate Rhythm: regular rhythm GI: Inspection: Yes normal to inspection, No Abdominal wall edema and No distended Palpation (GI): Soft to palpation, not firm, nontender, no guarding and not rigid Skin: General skin exam: no rashes or lesions noted Neuro: General: patient oriented x3, tone normal, moves all extremities and no focal motor deficits Extrem: General: Yes normal to inspection, Yes capillary refill normal and Yes no clubbing, cyanosis or edema Psych: Appearance: grossly normal Objective Data Labs 04/21/23 05:35 04/21/23 05:35 Labs: Laboratory Results - last 24 hr 04/20/23 04/21/23 12:17 05:35 WBC 10.0 13.1 H RBC 3.17 L D 3.60 L Hgb 9.9 L D 10.9 L Hct 30.5 L D 33.6 L MCV 96.2 93.3 MCH 31.2 30.3 MCHC 32.5 32.4 RDW 12.7 12.9 Plt Count 211 241 MPV 10.1 10.0 Immature Gran % (Auto) 0.5 H 0.8 H Neut % (Auto) 91.6 H 83.1 H Lymph % (Auto) 6.2 L 8.6 L Hughes % (Auto) 1.3 L 7.3 Eos % (Auto) 0.1 0.0 Baso % (Auto) 0.3 0.2 Lymph # (Auto) 0.6 L 1.1 L Hughes # (Auto) 0.1 1.0 Eos # (Auto) 0.0 0.0 Baso # (Auto) 0.0 0.0 Abs Immat Gran (auto) 0.05 H 0.10 H Absolute Neuts (auto) 9.1 H 10.9 H Absolute Nucleated RBC 0.000 0.000 Nucleated RBC % (auto) 0.0 0.0 Smear Tech's Comments VERIFIED Sodium 137 143 Potassium 3.9 3.9 Chloride 108 110 H Carbon Dioxide 16 L 26 Anion Gap 17 11 L BUN 8 L 11 Creatinine 0.51 0.84 Estim Creat Clear Calc 117.2 75.7 Estimated GFR > 60 > 60 Random Glucose 91 122 H Calcium 7.1 L D 8.4 D Progress Note: A&P Assessment and plan (1) FH: carotid endarterectomy: Status: Acute Plan Patient is a 57 Y F w/ grave's disease, s/p thyroidectomy, prior DVT, and prior R parieto occipital?CVA on 03/30, not candidate for thrombolytics given outside?window, found to have 90% stenosis R internal carotid artery, now s/p endarterectomy?04/20, tolerated procedure well N: prior CVA d/t R ICA stenosis w/o residual deficits CV: s/p R ICA endarterectomy R: no acute issues GI: advance diet as tolerated : no acute issues H: no acute issues; to avoid chemical DVT prophylaxis immediately post-operative ID: no acute issues E: grave's disease, s/p thyroidectomy, on home levothyroxine P: no acute issues Quality Stroke Does the patient have a stroke diagnosis?: Yes Reason for No Anti-thrombotic by Day Two: N/A - Med Ordered VTE Prior VTE?: No VTE Risk Level:: Medical - moderate - high VTE Device Contraindication: N/A - Device Ordered VTE Drug Contraindication: Treatment Not Tolerated
--- NOTE | 2023-04-21 08:31 | HO.POSTANES ---
Post Anesthesia Evaluation Post Anesthesia Evaluation Date of Service: 04/21/23 Vital Signs: Vital Signs Temp Pulse Resp BP Pulse Ox O2 Del Method O2 Flow Rate 04/21/23 07:29 97 Nasal Cannula 04/21/23 07:00 75 12 109/43 L 96 Nasal Cannula 2 04/21/23 06:00 73 12 113/47 L 98 Nasal Cannula 2 04/21/23 05:00 79 10 L 112/49 L 95 Nasal Cannula 2 04/21/23 04:00 83 11 L 136/55 L 98 Nasal Cannula 2 04/21/23 03:00 96.9 F 89 14 112/55 L 95 Nasal Cannula 2 04/21/23 02:00 74 11 L 97/41 L 95 Nasal Cannula 2 04/21/23 01:00 79 11 L 106/52 L 80 L Nasal Cannula 2 04/21/23 00:00 97.0 F 79 12 110/52 L 95 Nasal Cannula 2 04/20/23 23:00 110 H 17 152/83 H 99 Nasal Cannula 2 04/20/23 22:00 74 12 120/92 H 95 Nasal Cannula 2 04/20/23 20:57 79 11 L 117/54 L 94 Nasal Cannula 2 Anesthesia: General Endotracheal-GETA Mental Status: Awake Pain Control: Satisfactory Nausea/Vomiting: None Hydration: Adequate Anesthesia-Related Issues: No Anes. Related Issues
--- NOTE | 2023-04-21 09:36 | MHC.CM.PN ---
Met w/pt and spouse: pt independent with care needs, no services or DME used: spouse to transport to home: HCP at home and w/PCP.
[2023-04-21] MEDS: Acetaminophen 325 MG TABLET 650 MG PO (10:56)
--- NOTE | 2023-04-21 13:03 | P.DS_ITS ---
DS: Providers Provider Date of Service: 04/21/23 Date of admission: 04/20/23 06:29 Primary care physician: Areli Smith MD DS: Diagnosis Discharge Diagnosis (1) FH: carotid endarterectomy: Status: Acute DS: Summary Hospital Course Hospital Course: Pleasant 57-year-old female who originally presented to the hospital with right carotid stenosis with stroke presented for elective carotid endarterectomy. Postoperatively observed in the ICU overnight. No issues in terms of the surgery or blood pressure. Postop day 1 was tolerating regular diet all lines were removed. She was subsequently discharged. Time Attestation Discharge coordination time: Greater than 30 minutes Quality: Safe Use of Opioids Does Pt have an Active Cancer Diagnosis on the Problem List?: No Quality: Stroke Does the patient have a stroke diagnosis?: No Physical Exam Vital Signs: Vital Signs: Last Vital Signs Temp 97.9 F 04/21/23 12:00 Pulse 86 04/21/23 12:00 Resp 10 L 04/21/23 12:00 BP 133/54 L 04/21/23 12:00 Pulse Ox 96 04/21/23 12:00 O2 Del Method Room Air 04/21/23 12:00 O2 Flow Rate 2 04/21/23 07:00 Oxygen Flow Rate 2 04/21/23 07:29 BMI result Body Mass Index 29.6 Const: General: cooperative, healthy appearing and no acute distress Orientation/consciousness: oriented to person, oriented to place and oriented to time HEENT: Head: Yes normal to inspection Neck: Carotids: no bruits Chest: Chest palpation & inspection: normal inspection of the chest Resp: Effort & Inspection: normal respiratory effort and able to speak in complete sentences Auscultation: clear to auscultation bilaterally Cardio: Rate: regular rate Heart sounds: S1 normal heart sound present and S2 normal heart sound present GI: Inspection: Yes normal to inspection Skin: Other: Incision healing well General skin exam: no rashes or lesions noted Wounds: no wounds Neuro: General: oriented to person, oriented to place, oriented to time and CN's II-XI intact bilaterally Extrem: General: Yes normal to inspection, Yes full ROM and Yes no clubbing, cyanosis or edema Psych: Appearance: grossly normal and well kempt Speech and movement: Normal speech and movement present Affect: normal affect DS: Data Data Completed and Pending Pending studies at discharge: Pending at discharge 04/20/23 09:01 Surgical [PTH] Routine Labs on day of discharge: Laboratory Results - last 24 hr 04/21/23 05:35 WBC 13.1 H RBC 3.60 L Hgb 10.9 L Hct 33.6 L MCV 93.3 MCH 30.3 MCHC 32.4 RDW 12.9 Plt Count 241 MPV 10.0 Immature Gran % (Auto) 0.8 H Neut % (Auto) 83.1 H Lymph % (Auto) 8.6 L Elbert % (Auto) 7.3 Eos % (Auto) 0.0 Baso % (Auto) 0.2 Lymph # (Auto) 1.1 L Elbert # (Auto) 1.0 Eos # (Auto) 0.0 Baso # (Auto) 0.0 Abs Immat Gran (auto) 0.10 H Absolute Neuts (auto) 10.9 H Absolute Nucleated RBC 0.000 Nucleated RBC % (auto) 0.0 Sodium 143 Potassium 3.9 Chloride 110 H Carbon Dioxide 26 Anion Gap 11 L BUN 11 Creatinine 0.84 Estim Creat Clear Calc 75.7 Estimated GFR > 60 Random Glucose 122 H Calcium 8.4 D Discharge Plan Discharge Anticipated Discharge Date/Time: 04/21/23 12:59 Patient Disposition: Home, Self-Care Discharge Diagnosis: Status post right carotid endarterectomy Referrals: Areli Smith MD [Primary Care Provider] - 1 Week Discharge Medications: New oxycodone-acetaminophen [Percocet] 5-325 mg tablet 1 tab PO TID PRN (Reason: pain) Qty: 10 0RF Rx Instructions: Partial Fill upon patient request. Continued levothyroxine 75 mcg tablet 75 mcg PO DAILY@0600 cholecalciferol (vitamin D3) 50 mcg (2,000 unit) Tablet 50 mcg PO DAILY atorvastatin 80 mg Tablet 80 mg PO BEDTIME Qty: 90 0RF clopidogrel 75 mg Tablet 75 mg PO DAILY Qty: 90 0RF Discharge Orders: Discharge Order (Routine); Ordered 04/21/23 Ordered By: Jeremiah Couch Diet: Advance to usual diet Activity on Discharge: As tolerated Stand Alone Forms: Patient Portal Discharge page Activity Restrictions/Additional Instructions: Steri-Strips were used and you may shower on Take it easy today and you may ambulate around the house. Within 24 hours you can resume normal activity You may climb a flight of stairs as tolerated Do not lift anything heavier than a gallon of milk for 3 days. No driving for [address] Couch in follow-up in approximately 2 weeks time. You should already have an appointment if not please call my office at [phone] Please see above for any change in medications If you notice excessive bleeding please immediately call my office or return to the emergency room. Care Plan Goals: Follow-up surveillance of carotids Health Concerns: Carotid stenosis Plan of Treatment: Postop carotid surveillance Assessment: Status post right carotid endarterectomy
== END 2023-04-21 13:53 | disposition home or self-care (01) | DRG 24 ==
LOC: HO.SSSA 06:30 → HO.ICU 10:53
PROVIDERS: Internal Medicine Critical Care Medicine; Admitting Provider Surgery Vascular Surgery; PCP Internal Medicine; Visit Provider Surgery Vascular Surgery
PROC: 03CM0ZZ Extirpation of Matter from Right External Carotid Artery, Open Approach (ICD-10-PCS; CPT 35301; principal; 2023-04-20 07:30)
DX: I65.21 Occlusion and stenosis of right carotid artery (principal); E89.0 Postprocedural hypothyroidism; Z79.02 Long term (current) use of antithrombotics/antiplatelets; Z86.73 Personal history of transient ischemic attack (TIA), and cerebral infarction without residual deficits; Z79.890 Hormone replacement therapy; Z79.899 Other long term (current) drug therapy
CPT/HCPCS: 36415; 80048; 85025; 86850; 86900; 86901; 88304; 88311; A4649; C1758; C1768; J0131; J0613; J1100; J1644; J2250; J2270; J2305; J2371; J2405; J2598; J2704; J2795; J3010; J3370; J7120

== ENCOUNTER → 2023-04-20 06:29 | Outpatient (BNV) | payer OTHER, SELFPAY | PROVIDERS: Admitting Provider Surgery Vascular Surgery; PCP Internal Medicine; Visit Provider Surgery Vascular Surgery | DX: Z82.49 Family history of ischemic heart disease and other diseases of the circulatory system (principal) | CPT/HCPCS: 35301; 99024 ==

== ENCOUNTER → 2023-04-20 06:29 | Outpatient (BNV) | payer OTHER, SELFPAY | PROVIDERS: Admitting Provider Surgery Vascular Surgery; PCP Internal Medicine; Visit Provider Internal Medicine Critical Care Medicine | DX: I63.231 Cerebral infarction due to unspecified occlusion or stenosis of right carotid arteries (principal); Z82.49 Family history of ischemic heart disease and other diseases of the circulatory system | CPT/HCPCS: 99222; 99231 ==

== ENCOUNTER 2023-05-12 10:20 | Outpatient (AMB) | payer OTHER, SELFPAY ==
--- NOTE | 2023-05-12 10:23 | MHC.OFFVIS ---
Intake Intake Visit Reasons: 2 week follow up right CEA Intake Note: 2 week follow up Right CEA 04/20/23. Pt states that she is doing well, the steri strips caused some irritation. Has numbness and soreness in the jaw and neck. Accompanied by: Self / Same As Patient Allergies bee pollen [bee stings] Allergy (Verified 05/12/23 10:26) Redness of Skin Peanut Butter Allergy (Verified 05/12/23 10:) Swelling Penicillins Allergy (Verified 05/12/23 10:) Anaphylaxis sulfamethoxazole [From Bactrim] Allergy (Verified 05/12/23 10:) Rash trimethoprim [From Bactrim] Allergy (Verified 05/12/23 10:) Rash aspirin [ASA] Adverse Reaction (Verified 05/12/23 10:) Itching HPI 2 week follow up right CEA HPI Details 57-year-old status post right carotid endarterectomy. Reports no postoperative issues. Incision appears to be healing well. Now for routine postoperative follow-up. [facility] Medical History Hearing difficulty of both ears Hiatal hernia GERD (gastroesophageal reflux disease) CVA (cerebral vascular accident) On anticoagulant therapy Elevated cholesterol DVT (deep venous thrombosis) Graves disease Age related osteoporosis Surgical History History of endometrial ablation H/O colonoscopy History of embolectomy H/O thyroidectomy Social History Household Members: Spouse and Family Housing: House Are you a primary pediatric acute care unit nurse to a significant other at home: No Do you presently have visiting nurse or other home services: Yes Alcohol intake: current Alcohol intake frequency: a few times a month Alcohol type: beer Patient Tobacco Use Status: Former Tobacco user service: No Review of Systems Const All systems reviewed & are unremarkable except as noted in HPI and below Reports no additional complaints ENT Reports Normal hearing present Card Denies chest pain, Denies chest pain at rest, Denies chest pain with activity and Denies pedal edema Resp Denies cough GI Denies abdominal pain Musc Denies abnormal gait, Denies muscle cramps and Denies radiating pain into limb Skin/Breast Denies skin ulcer and Denies wounds Neuro Reports Normal hearing present and Denies abnormal gait Psych Reports no additional complaints Physical Exam Const General: cooperative, healthy appearing and comfortable Orientation/consciousness: oriented to person, oriented to place and oriented to time HEENT Head: Yes normal to inspection Neck Neck: Yes normal visual inspection Carotids: no bruits Chest Chest palpation & inspection: normal inspection of the chest Resp Effort & Inspection: normal respiratory effort and able to speak in complete sentences Auscultation: clear to auscultation bilaterally, no crackles, no rales, no rhonchi and no wheezes Cardio Other: Bilateral DP signals Rate: regular rate Rhythm: regular rhythm Heart sounds: S1 normal heart sound present and S2 normal heart sound present Bruits: no carotid bruits Peripheral pulses: Peripheral pulses 2+ throughout GI Inspection: Yes normal to inspection Skin Other: Right neck incision healing well Wounds: no wounds Hair: normal Neuro General: oriented to person, oriented to place and oriented to time Cranial nerves: Yes CN's II-XII intact bilaterally and Yes Normal hearing present Cognition (Neuro): normal cognition Motor exam (neuro): 5/5 motor strength present throughout Extrem Other: venous exam: No significant superficial varicosities or spider telangiectasias, minimal edema General: No clubbing, No cyanosis and No edema Psych Appearance: grossly normal Mental Status: mental status grossly normal Speech and movement: Normal speech and movement present Assessment & Plan Assessment & Plan (1) Bilateral carotid artery stenosis: Comment: 04/20/2023 - right carotid endarterectomy Code(s): I65.23 - Occlusion and stenosis of bilateral carotid arteries Plan: In short patient is doing well status post right carotid endarterectomy will schedule for 3 month routine carotid ultrasound surveillance follow-up. Previous CTA from 03/30/2023 demonstrates left side was less than 50% stenosis. We did discuss risk factor modification and she will follow up with us in 3 months time. (2) PAD (peripheral artery disease): Code(s): I73.9 - Peripheral vascular disease, unspecified Plan: She does have an element of peripheral vascular disease and reports left leg pain after a half a block. Will get noninvasive arterial testing for her three-month follow-up. Thank you for allowing us to assist in her care Orders: Orders US carotid duplex BI 3 Months I65.23 - Occlusion and stenosis of bilateral carotid arteries US arterial duplex LE BI 3 Months I73.9 - Peripheral vascular disease, unspecified Coding Level of Care Code Est Pt Level 4 (18394) Diagnoses Bilateral carotid artery stenosis I65.23 PAD (peripheral artery disease) I73.9
== END 2023-05-12 10:47 | disposition home or self-care (01) ==
LOC: HO.HVS 10:21
PROVIDERS: PCP Internal Medicine; Visit Provider Surgery Vascular Surgery
DX: I65.23 Occlusion and stenosis of bilateral carotid arteries (principal); I73.9 Peripheral vascular disease, unspecified
CPT/HCPCS: 99024

== ENCOUNTER → 2023-05-12 10:20 | Outpatient (BNVA) | payer OTHER, SELFPAY | PROVIDERS: PCP Internal Medicine; Visit Provider Surgery Vascular Surgery ==

== ENCOUNTER 2023-08-19 08:52 | Outpatient (REF) | payer OTHER, SELFPAY ==
--- NOTE | ~2023-08-19 | US_ITS ---
EXAMINATION: NONINVASIVE ASSESSMENT OF THE ARTERIES OF BOTH LOWER EXTREMITIES WITH PVR EXAM AND BILATERAL LOWER EXTREMITY DUPLEX Margi Cannon MD CLINICAL INFORMATION: Peripheral vascular disease TECHNIQUE: Ankle pulse volume recordings, ankle pressure measurements and ankle brachial indices were obtained of the lower extremity arterial system bilaterally in addition to duplex Doppler techniques with wave form analysis and measurement of velocities in the common femoral, profunda femoral, superficial femoral, popliteal and tibial arteries. The study was performed only at rest. COMPARISON: None FINDINGS: a) AT REST: RIGHT LE. The right ankle-brachial index is: 1.20 * >0.97-1.25 = normal - no significant arterial disease * 0.75-0.96 = mild peripheral arterial disease * 0.5-0.74 = moderate peripheral arterial disease * <0.50 = severe peripheral arterial disease 2. Right ankle pressure: normal. 3. Right ankle PVR waveform: normal. 4. Right direct duplex Doppler findings: Common femoral artery: 205 cm/s, Multiphasic Profunda femoris artery: 104 cm/s, Multiphasic Superficial femoral artery (proximal): 139 cm/s, Multiphasic Superficial femoral artery (mid): 89 cm/s, Multiphasic Superficial femoral artery (distal): 91 cm/s, Multiphasic Proximal Popliteal artery: 67 cm/s, monophasic Mid posterior tibial artery: 50 cm/s, monophasic LEFT LE. The left ankle-brachial index is: 0.75 * >0.97-1.25 = normal - no significant arterial disease * 0.75-0.96 = mild peripheral arterial disease * 0.5-0.74 = moderate peripheral arterial disease * <0.50 = severe peripheral arterial disease 2. Left ankle pressure: normal. 3. Left ankle PVR waveform: normal. 4. Left direct duplex Doppler findings: Common femoral artery: 111 cm/s, Multiphasic Profunda femoris artery: 56 cm/s, Multiphasic Superficial femoral artery (proximal): 65 cm/s, Multiphasic Superficial femoral artery (mid): 55 cm/s, Multiphasic Superficial femoral artery (distal): 54 cm/s, Multiphasic Proximal Popliteal artery: 33 cm/s, Multiphasic Mid posterior tibial artery: 21 cm/s, Multiphasic US/US arterial duplex BI w/ DAVID IMPRESSION: RIGHT LEG: Mild peripheral arterial disease in the left lower extremity. LEFT LEG: Mild peripheral arterial disease in the left lower extremity.
--- NOTE | ~2023-08-19 | US_ITS ---
EXAMINATION: US EXTRACRANIAL CAROTID DUPLEX, BILATERAL CLINICAL INFORMATION: Right carotid endarterectomy 04/20/2023 COMPARISON: None available. TECHNIQUE: Real-time ultrasound and Doppler techniques (integrating B-mode 2-D vascular images, Doppler spectral analysis and color-flow Doppler imaging) were utilized to interrogate the extracranial carotid arteries, the vertebral arteries and proximal subclavian arteries bilaterally. The degree of stenosis is determined by criteria similar to NASCET. FINDINGS: Right Side: 1. There is moderate atherosclerotic plaque seen in the bifurcation/proximal ICA region. 2. The common carotid artery PSV proximally is 72.1 cm/s and distally 84 cm/s. 3. The proximal internal carotid artery velocities are 203.4 cm/s systolic and 76.5 cm/s diastolic. 4. The proximal external carotid artery PSV is 219.3 cm/s. 5. The vertebral artery shows antegrade flow. 6. The subclavian artery waveforms are normal. Left Side: 1. There is mild atherosclerotic plaque seen in the bifurcation/proximal ICA region. 2. The common carotid artery is not visualized. 3. The proximal internal carotid artery velocities are 114.2 cm/s systolic and 37.6 cm/s diastolic. 4. The proximal external carotid artery PSV is 92.6 cm/s. 5. The vertebral artery shows antegrade flow. 6. The subclavian artery waveforms are normal. US/US carotid duplex BI IMPRESSION: 1. RIGHT: Moderate, hemodynamically significant stenosis of the proximal right internal carotid artery corresponding to a 50-79% stenosis by velocity criteria. 2. LEFT: Minimal, non-hemodynamically significant stenosis of the proximal left internal carotid artery corresponding to a 0-49% stenosis by velocity criteria.
== END 2023-08-19 08:53 | disposition home or self-care (01) ==
LOC: HO.US 08:52
PROVIDERS: PCP Internal Medicine; Visit Provider Surgery Vascular Surgery
DX: I65.23 Occlusion and stenosis of bilateral carotid arteries (principal); I73.9 Peripheral vascular disease, unspecified
CPT/HCPCS: 93880; 93922; 93925

== ENCOUNTER 2023-08-27 09:50 | Outpatient (AMB) | payer OTHER, SELFPAY ==
--- NOTE | 2023-08-27 09:54 | MHC.OFFVIS ---
Vital Signs 08/27/23 10:01 08/27/23 10:02 BP 96/60 122/80 Blood Pressure Location Lt brachial Rt brachial Position Sitting Sitting Intake Visit Reasons: Follow Up 08/18 Arterial & Carotid US Intake Note: follow up carotid US & LE Arterial US 08/19/23 s/p Right CEA 04/20/23. Pt States she still has some jaw numbness but no issues s/p Right CEA. Pt states at times her Left LE will start to hurt after walking half a block, she states she gets cramping in Left LE but not consistent. Accompanied by: Self / Same As Patient Allergies bee pollen [bee stings] Allergy (Verified 08/27/23 09:58) Redness of Skin Peanut Butter Allergy (Verified 08/27/23 09:58) Swelling Penicillins Allergy (Verified 08/27/23 09:58) Anaphylaxis sulfamethoxazole [From Bactrim] Allergy (Verified 08/27/23 09:58) Rash trimethoprim [From Bactrim] Allergy (Verified 08/27/23 09:58) Rash aspirin [ASA] Adverse Reaction (Verified 08/27/23 09:58) Itching HPI HPI Follow Up 08/18 Arterial & Carotid US: Details: Very pleasant 58-year-old female presents for evaluation regarding peripheral vascular disease. She has undergone lower extremity noninvasive testing. She reports that her lower extremities appear to be doing relatively well. No issues ambulating distances. She actually is able to go 2-1/2 miles. She also presents for follow-up surveillance regarding carotid endarterectomy which was performed in March. She reports no issues with that as well. She has ultrasound surveillance of that as well. She has not on an aspirin due to an aspirin allergy. FORMERLY [facility], [facility]–1983 Medical History Hearing difficulty of both ears Hiatal hernia GERD (gastroesophageal reflux disease) CVA (cerebral vascular accident) On anticoagulant therapy Elevated cholesterol DVT (deep venous thrombosis) Graves disease Age related osteoporosis Surgical History History of endometrial ablation H/O colonoscopy History of embolectomy H/O thyroidectomy Social History Household Members: Spouse and Family Housing: House Are you a primary primary care provider to a significant other at home: No Do you presently have visiting nurse or other home services: Yes Alcohol intake: current Alcohol intake frequency: a few times a month Alcohol type: beer Patient Tobacco Use Status: Former Tobacco user service: No Review of Systems Const All systems reviewed & are unremarkable except as noted in HPI and below Reports no additional complaints ENT Reports Normal hearing present Card Denies chest pain, Denies chest pain at rest, Denies chest pain with activity and Denies pedal edema Resp Denies cough GI Denies abdominal pain Musc Denies abnormal gait, Denies muscle cramps and Denies radiating pain into limb Skin/Breast Denies skin ulcer and Denies wounds Neuro Reports Normal hearing present and Denies abnormal gait Psych Reports no additional complaints Physical Exam Vital Signs: Last Vital Signs BP 122/80 08/27/23 10:02 Const General: cooperative, healthy appearing and comfortable Orientation/consciousness: oriented to person, oriented to place and oriented to time HEENT Head: Yes normal to inspection Neck Neck: Yes normal visual inspection Carotids: no bruits Chest Chest palpation & inspection: normal inspection of the chest Resp Effort & Inspection: normal respiratory effort and able to speak in complete sentences Auscultation: clear to auscultation bilaterally, no crackles, no rales, no rhonchi and no wheezes Cardio Rate: regular rate Rhythm: regular rhythm Heart sounds: S1 normal heart sound present and S2 normal heart sound present Bruits: no carotid bruits Peripheral pulses: Peripheral pulses 2+ throughout GI Inspection: Yes normal to inspection Skin Wounds: no wounds Hair: normal Neuro General: oriented to person, oriented to place and oriented to time Cranial nerves: Yes CN's II-XII intact bilaterally and Yes Normal hearing present Cognition (Neuro): normal cognition Motor exam (neuro): 5/5 motor strength present throughout Extrem Other: venous exam: No significant superficial varicosities or spider telangiectasias, minimal edema General: No clubbing, No cyanosis and No edema Psych Appearance: grossly normal Mental Status: mental status grossly normal Speech and movement: Normal speech and movement present Results Reviewed Results Reviewed: Noninvasive arterial testing lower extremity dated 08/19/2023 demonstrates DAVID on the right of 1.2 and on the left of 0.75. Written report and images were reviewed. Carotid testing dated 08/19/2023 demonstrates right side stenosis of 50 to 79% with a peak systolic of 203 and left side is within normal limits Assessment & Plan Assessment & Plan (1) PAD (peripheral artery disease): Code(s): I73.9 - Peripheral vascular disease, unspecified Category: Medical Plan: In short patient has stable claudication. I did review the pathophysiology of peripheral vascular disease with the patient. In addition we did discuss routine conservative measures including a healthy diet and the importance of exercise and ambulation. We did discuss risk factor modification. The patient will continue to to follow-up with surveillance follow-up in approximately 1 year. Thank you for allowing us to participate in this patient's care. If there are any questions or concerns please do not hesitate to contact us. (2) Bilateral carotid artery stenosis: Comment: 04/20/2023 - right carotid endarterectomy Code(s): I65.23 - Occlusion and stenosis of bilateral carotid arteries Category: Medical Plan: The patient has unusually high velocities status post carotid endarterectomy. Will order CT angiogram to better elucidate the true degree of stenosis. She will follow up with us after testing Orders: Orders Blood Urea Nitrogen Today I65.23 - Occlusion and stenosis of bilateral carotid arteries Creatinine Today I65.23 - Occlusion and stenosis of bilateral carotid arteries CT angio neck 1 Week I65.23 - Occlusion and stenosis of bilateral carotid arteries Coding Level of Care Code Est Pt Level 4 (20760) Diagnoses PAD (peripheral artery disease) I73.9 Bilateral carotid artery stenosis I65.23
[2023-08-27 10:01] VITALS: BP 96/60
[2023-08-27 10:02] VITALS: BP 122/80
== END 2023-08-27 10:37 | disposition home or self-care (01) ==
PROVIDERS: PCP Internal Medicine; Visit Provider Surgery Vascular Surgery
DX: I73.9 Peripheral vascular disease, unspecified (principal); I65.23 Occlusion and stenosis of bilateral carotid arteries
CPT/HCPCS: 99214

== ENCOUNTER → 2023-08-27 09:50 | Outpatient (BNVA) | payer OTHER, SELFPAY | PROVIDERS: PCP Internal Medicine; Visit Provider Surgery Vascular Surgery ==

== ENCOUNTER 2023-10-21 10:58 | Outpatient (REF) | payer OTHER, SELFPAY ==
[2023-10-21 12:31] LABS: Blood Urea Nitrogen 15 mg/dL (9-16); Estimated Glomerular Filt Rate > 60
== END 2023-10-21 10:59 | disposition home or self-care (01) ==
LOC: HO.LAB 10:58
PROVIDERS: PCP Internal Medicine; Visit Provider Surgery Vascular Surgery
DX: I65.23 Occlusion and stenosis of bilateral carotid arteries (principal)
CPT/HCPCS: 36415; 82565; 84520

== ENCOUNTER 2023-10-27 07:35 | Outpatient (REF) | payer OTHER, SELFPAY ==
--- NOTE | ~2023-10-27 | CT_ITS ---
EXAMINATION: CT ANGIOGRAM NECK CLINICAL INFORMATION: Conclusion severe stenosis of the bilateral carotid arteries. COMPARISON: Carotid ultrasound from 08/19/2023. CTA Head and Neck from 03/30/2023. TECHNIQUE: Initial noncontrast editor in chief newspaper imaging of the neck was performed. Test bolus sequences followed by intravenous administration 70 mL of gadolinium chest. Helical imaging was performed in the axial plane from the aortic arch to the skull base. The data was processed at the product/device technologist's workstation for generation of MIP sequences. Angled MIPs and volume rendered reformatted images were also generated at an offline 3D workstation. Stenoses are assessed in accordance with NASCET criteria unless otherwise indicated. This CT examination was performed using dose optimization techniques as appropriate, variously including the following: *Automated exposure control. *Adjustment of mA and/or kV according to patient size (this includes techniques or standardized protocols for targeted exams where dose is matched to indication/reason for exam; i.e. extremities or head). *Use of iterative reconstruction technique. DLP: 287 mGy-cm FINDINGS: CT Neck: Changes of prior right-sided endarterectomy. The thyroid gland is atrophic. The remaining cervical soft tissues are within normal limits. Partial straightening of the normal cervical lordosis. Advanced degenerative disc disease from C5-C7. Moderate degenerative disease at all additional levels. Facet and uncovertebral joint arthropathy leads to osseous encroachment on the neural foramina from C5-C7. Mild mucosal thickening of the paranasal sinuses. Moderate rightward nasal septal deviation. CT Upper Chest: Moderate centrilobular and paraseptal emphysema the visualized lung apices. Otherwise clinically visualized lung apices and upper mediastinum are within normal limits. Neck CTA: Aortic Arch: Normal contour and caliber moderate mixed fibrofatty and calcific atherosclerotic disease. Classic 3 vessel branching pattern of the aortic arch. Great Vessel Origins: No significant stenosis of the branch origins. Right Common Carotid Artery: No focal stenosis or occlusion. Cervical Right Internal Carotid Artery: Changes of right-sided endarterectomy. The previously demonstrated calcific atherosclerotic disease of the carotid bulb is now cleared. However, there is now circumferential wall thickening of the carotid bulb and cervical segment of the the right ICA that leads to a short segment 70% stenosis proximally and a short segment 45% stenosis at the skull base. Stenosis proximally Left Common Carotid Artery: No focal stenosis or occlusion. Cervical Left Internal Carotid Artery: Calcific atherosclerotic disease of the carotid bulb and proximal internal carotid artery causing 50% stenosis. Cervical Right Vertebral Artery: Dominant. Atherosclerotic disease of the mild stenosis of the origin. No additional focal stenosis or occlusion. Cervical Left Vertebral Artery: Chronic occlusion of the left vertebral artery at its origin. There is reconstitution of the V2 segment at the level of C4. CT/CT angio neck IMPRESSION: 1. Changes of prior right-sided endarterectomy. The previously demonstrated calcific atherosclerotic disease of the right carotid bulb is now cleared. However, there is now circumferential wall thickening of the carotid bulb and cervical segment of the right ICA that leads to a short segment 70% stenosis proximally and a short segment 45% stenosis at the skull base. 2. Atherosclerotic disease causes 50% stenosis of the proximal left ICA. 3. Chronic occlusion of the left vertebral artery at its origin. There is reconstitution of the V2 segment at the level of C4. 4. Emphysema. Electronically signed by: [place] DO 11/20/2023 09:04 AM EDT
[2023-10-27] MEDS: iohexoL 350 MG/ML 100 ML INFUS..BTL 70 ML IV (08:30)
== END 2023-10-27 07:36 | disposition home or self-care (01) ==
LOC: HO.CT 07:35
PROVIDERS: PCP Internal Medicine; Visit Provider Surgery Vascular Surgery
DX: I65.23 Occlusion and stenosis of bilateral carotid arteries (principal)
CPT/HCPCS: 70498; Q9967

== ENCOUNTER → 2023-11-19 09:55 | Outpatient (BNVA) | payer OTHER, SELFPAY | PROVIDERS: PCP Internal Medicine; Visit Provider Surgery Vascular Surgery ==

== ENCOUNTER 2024-06-02 09:47 | Outpatient (REF) | payer OTHER, SELFPAY ==
--- NOTE | ~2024-06-02 | US_ITS ---
CLINICAL HISTORY: I65.23 - Occlusion and stenosis of bilateral carotid arteries US bilateral carotid duplex Comparison: US/NH/SR - US CAROTID DUPLEX BI - 08/19/23 10:42 EDT Findings: No significant plaque within the common carotid arteries. Moderate right mild left plaque within the carotid bulbs. Moderate right mild left plaque within the internal carotid arteries . Waveforms are normal morphology. Peak systolic and end-diastolic velocities: Right CCA: 83.5 cm/s Right ICA: 283.0 cm/s previously measured 315.8 centimeters/second Right ICA EDV: 85.6 cm/sec. Previously measured 119 centimeters/second Right systolic ICA/CCA ratio: 2.9 Right ECA: Unremarkable Right vertebral artery flow antegrade. Left CCA: 114 cm/s Left ICA: 118 cm/s Left ICA EDV: 42.5 cm/sec Left systolic ICA/CCA ratio: 1.0 Left ECA: Unremarkable Left vertebral artery flow antegrade. Impression: 1. Moderate right mild left plaque at the carotid bulb/internal carotid artery junction 2. 50-79% stenosis right carotid bulb/internal carotid artery 3. Less than 49% stenosis left carotid bulb/internal carotid artery This document has been electronically signed by: Tomasz Greco MD on 06/03/2024 13:02:19
--- OUTSIDE RECORDS SUMMARY | 2024-06-02 11:52 | XMS_ITS | Encounter Summary ---
Author Organization [facility] Address [address] [place] [address] Care Team Providers Care Outside Upholsterer Name Role Phone Areli Smith MD Primary Care Provider [phone] Reason for Visit * Reason Comments Establish Care Pre colonPt on Blood thinners * Consultation (Routine) - Closed Specialty Diagnoses / Procedures Referred By Contskyler t Referred To Contact Gastroenterology Diagnoses Encounter for colorectal cancer screening Mara Alexander PA [address] [place] [address] Phone: tel: fax: Gastroenterology - [address] [address] Phone: tel: fax: Referral ID Status Reason Start Date Expiration Date V isits Requested Visits Authorized [id number] Closed Specialty Services Required 04/25/2024 04/25/2025 1 1 Encounter Details Date Type Department Care Team ([facility] st Contact Info) Description 05/24/2024 9:40 AM EST Office Visit Gastroenterology - [address] [place] [address] [id number] Diana Kelly, ROBY [address] [id number] Colon cancer screening (Primary Dx); Encounter for colorectal cancer screening Social History Tobacco Use Types Packs/Day Years Used Date Smoking Tobacco: Former Cigarettes Q uit: 03/25/2009 Smokeless Tobacco: Never Alcohol Use Standard Drinks/Week Comments Not Currently 0 (1 standard drink = 0.6 oz pur e alcohol) Comments Unknown Sex and Gender Information Value Date Recorded Sex Assigned at Not on file Legal Sex Female 10:40 AM EST Gender Identity Not on file Sexual Orientation Not on file documented as of this encounter Last Filed Vital Signs Vital Sign Reading Time Taken Comments Blood Pressure - - Pulse - - Temperature - - Respiratory Rate - - Oxygen Saturation - - Inhaled Oxygen Concentration - - Weight 71.2 kg (157 lb) 05/24/2024 9:41 AM EST Height 165.1 cm (5' 5 ) 05/24/2024 9:41 AM EST Body Mass Index 26.13 05/24/2024 9:41 AM EST documented in this encounter Progress Notes * Diana Kelly NP - 05/24/2024 9:40 AM EST CHIEF COMPLAINT: Pre op DATE OF LAST ENDOSCOPIC PROCEDURES: 05/2014 Colonoscopy 10 yr recall HPI: Deandra Yanez is a 58 y.o. old female who was originally referred to us by Areli Smith MD nowpresents to the gastroenterology department today as a new patient. She was here to schedule a 10 year colonoscopy. Her last was done at [facility] and according to her she had no polyps, just mild diverticuilosis. She has no GI complaints today. Her bowels are regular without any bleeding. Her weight is stable and she has no issues with reflux or dysphagia symptoms. She has been on Plavix for a year due to a CVA with no residual She is aware of the risks of holingher anticoagulation including clots, another CVA, [place]. She agrees to proceed. ROS: GENERAL: No malaise, significant weight loss or fever HEENT: No changes in hearing or vision or swallowing problems RESPIRATORY: No cough, wheezing or shortness of breath CARDIOVASCULAR: No chest pain, leg swelling or palpitations GI: See H&P The remainder of the review of systems is reviewed and negative. PAST MEDICAL HISTORY: Past Medical History: Diagnosis Date Allergic rhinitis 11/13/2008 DX:Allergic rhinitis Carotid stenosis 04/10/2023 DX:Carotid stenosis; COMMENT: 04/15 >90 % right, 50% left, for CEA 04/20/23 Disorder of menstrual bleeding 06/02/2007 DX:Disorder of menstrual bleeding; COMMENT: Norethindrone 5 mg daily first 12 days of the month. EMB done 07/27 Diverticulosis of colon (without mention of hemorrhage) 06/09/2014 DX:Diverticulosis of colon (without mention of hemorrhage); COMMENT: Incidental finding at colonoscopy 06/09/2014. Hearing loss 03/21/2015 DX:Hearing loss; COMMENT: significant Lumbago 04/25/2005 DX:Lumbago Psoriasis 01/26/2017 DX:Psoriasis Stroke (CMS/HCC) 04/10/2023 DX:Stroke (HCC); COMMENT: 04/15 left arm and leg weakness, right occipital/parietal infarct Toxic diffuse goiter without mention of thyrotoxic crisis or storm 04/25/2005 DX:Toxic diffuse goiter without mention of thyrotoxic crisis or storm; COMMENT: thyroidectomy Unspecified hypothyroidism 04/25/2005 DX:Unspecified hypothyroidism PAST SURGICAL HISTORY: Past Surgical History: Procedure Laterality Date BREAST BIOPSY PROCEDURE: BX BREAST; PERC NEEDLE CORE W/IMAG GUID; COMMENT: benign COLONOSCOPY 06/09/2014 PROCEDURE: HISTORICAL COLONOSCOPY; COMMENT: minimal diverticulosis OTHER SURGICAL HISTORY PROCEDURE: UTERINE ARTERY EMBOLIZ; COMMENT: Novasure OTHER SURGICAL HISTORY PROCEDURE: HISTORICAL ARM SURGERY; COMMENT: blood clot removal x 2 right AC space OTHER SURGICAL HISTORY 04/08 PROCEDURE: MAMMOGRAM THYROIDECTOMY 1981 PROCEDURE: HISTORICAL TOTAL THYROIDECTOMY SOCIAL HISTORY: Social History Tobacco Use Smoking status: Former Current packs/day: 0.00 Types: Cigarettes Quit date: 03/25/2009 Years since quittin.1 Smokeless tobacco: Never Substance Use Topics Alcohol use: Not Currently FAMILY HISTORY: Brother with polyps under age 60 ACTIVE MEDICATIONS: Current Outpatient Medications Medication Sig Dispense Refill atorvastatin (LIPITOR) 80 mg tablet Take 1 Tablet by mouth at bedtime. cholecalciferol (VITAMIN D-3) 50 mcg (2,000 unit) tablet Take 1 Tablet by mouth daily. clopidogreL (PLAVIX) 75 mg tablet Take 1 Tablet by mouth daily. EPINEPHrine (EPIPEN) 0.3 mg/0.3 mL injection Inject 0.3 mL (0.3 mg total) into the thigh if needed for anaphylaxis. 1 each 0 levothyroxine (SYNTHROID, LEVOTHROID) 75 mcg tablet Take 1 Tablet by mouth daily. triamcinolone (KENALOG) 0.025 % cream Apply to affected area bid No current facility-administered medications for this visit. ALLERGIES: Allergies Allergen Reactions Aspirin Tinnitus tinnitus Bee Venom Protein (Honey Bee) Hives Peanut Swelling Tongue swelling Peanut Oil Swelling Tongue swelling Penicillin G life threatening reaction Sulfamethoxazole-Trimethoprim Other Mouth fungus PHYSICAL EXAM: Visit Vitals Ht 1.651 m (65 ) Wt 71.2 kg (157 lb) BMI 26.13 kg/m?? Smoking Status Former BSA 1.78 m?? APPEARANCE: Alert and in no acute distress EYES: PERRLA, conjunctiva and sclera normal. HEART: RRR with normal S1 and S2, no murmurs appreciated LUNG: clear to auscultation ABDOMEN:nontender without masses NEURO: Awake, alert and oriented x 3 Assessment & Plan Colon cancer screening Colonoscopy Discussed with patient indications for procedure as well as risks of bleeding, infection, risk of perforation and reaction to anesthesia. Patient is aware of risk of missed lesions. Indications including screening for potential pre- malignant lesions and attempting to remove them. . Patient to hold Plavix for 7 days before procedure. General: Patient aware needs a ride home Nor to have liquids for at least three hours before procedure. Patient understands and would like to proceed I would like to thank Areli Smith MD for the opportunity to partake in the patient's care. Board Certified Gastroenterology [facility] W [phone] [phone] [email or web address] Diana Kelly NP documented in this encounter Plan of Treatment Upcoming Encounters Date Type Department Care Team (Late st Contact Info) Description 07/29/2024 8:30 AM EDT Appointment [facility] Endoscopy [address] [place] [address] Zeeshan Williamson MD [address] [address] 10/07/2024 10:40 AM EDT Appointment Radiology Department [address] [phone] 10/24/2024 9:30 AM EDT Office Visit Adult Medicine [facility] [address] [place] [address] Areli Smith MD [address] [place] [address] documented as of this encounter Visit Diagnoses Diagnosis Colon cancer screening- Primary Special screening for malignant neoplasms, colon Encounter for colorectal cancer screening Encounter for screening mammogram for breast cancer documented in this encounter Orders Outpatient Referral Count Last Ordered Date Fir st Ordered Date AMB REFERRAL TO GASTROENTEROLOGY 05/25/19 documented in this encounter Care Teams Outside Upholsterer Relationship Specialty Start Date End Date Areli Smith MD [address] [place] [phone] PCP - General 07/22/1991 documented as of this encounter
--- OUTSIDE RECORDS SUMMARY | 2024-06-02 11:52 | XMS_ITS | Clinical Summary ---
Author Organization [facility] Address [address] [place] [address] Care Team Providers Care Acid Conditioning Worker Name Role Phone Areli Smith MD Primary Care Provider [phone] Allergies Active Allergy Reactions Criticality Noted Date Comments Aspirin Tinnitus 04/25/2005 tinnitus Bee Sting Hives 03/27/2023 Peanut Oil Swelling 04/27/2022 Tongue swelling Penicillin G 04/25/2005 life threatening reaction Sulfamethoxazole-Trim ethoprim Other (See Comments) 07/06/2015 Mouth fungus Medications Medication Sig Dispensed Refills Start Date End Date Status Cholecalciferol 50 MCG (1999 UT) TABS Take 1 tablet by mouth daily. 0 07/09/2022 Active EPINEPHrine 0.3 MG/0.3ML SOAJ Inject 0.3 mL (0.3 mg total) into the muscle. 0 01/10/2022 Active hydrocortisone 0.5 % cream Apply topically daily as needed. 0 Active levothyroxine (SYNTHROID) tablet 75 mcg 0 03/10/2023 Active triamcinolone (KENALOG) 0.025 % cream Apply to affected area bid 0 05/26/2022 Active Active Problems Problem Noted Date Diagnosed Date Osteoporosis 03/26/2023 Social History Tobacco Use Types Packs/Day Years Used Date Smoking Tobacco: Never Assessed Sex and Gender Information Value Date Recorded Sex Assigned at Not on file Gender Identity Not on file Sexual Orientation Not on file Job Start Date Occupation Industry Not on file Not on file Not on file Last Filed Vital Signs Vital Sign Reading Time Taken Comments Blood Pressure 108/71 03/27/2023 2:23 PM EST Pulse 67 03/27/2023 2:23 PM EST Temperature 36.4 ??C (97.5 ??F) 03/27/2023 2:23 PM ES T Respiratory Rate 18 03/27/2023 2:23 PM EST Oxygen Saturation 99% 03/27/2023 2:23 PM EST Inhaled Oxygen Concentration - - Weight 73.3 kg (161 lb 9.6 oz) 03/27/2023 2:23 P M EST Height - - Body Mass Index - - Plan of Treatment Health Maintenance Due Date Last Done Comments Hepatitis C Screening 1965 Depression Screening 1975 Preventative Health Evaluation 07/17/1981 Cervical Cancer Screening (Pap Smear) 07/17/1984 Colon Cancer Screening (Colonoscopy) 07/17/2008 Breast Cancer Screening (Mammogram) 07/17/2013 DTap / Tdap / Td (2 - Td or Tdap) 07/20/2021 07/21/2011, 10/18/2002 COVID-19 Vaccine ( season) 2023 04/27/2020, 04/06/2020 Influenza Vaccine (#1) 2023 , 01/19/2020, 12/22/2019, Additional history exists RSV Adult > 60+ Yrs or (1 - 1-dose 75+ series) 07/17/2038 Shingrix-Zoster Vaccine Completed 01/04/2021, 11/05 Hepatitis B Vaccines Aged Out No long er eligible based on patient's age to complete this topic Pneumococcal Vaccine Aged Out No long er eligible based on patient's age to complete this topic RSV Ped < 20 months Aged Out No longe r eligible based on patient's age to complete this topic Care Teams Acid Conditioning Worker Relationship Specialty Start Date End Date Areli Smith MD PCP - General Internal Medicine 03/12/23
--- OUTSIDE RECORDS SUMMARY | 2024-06-02 11:53 | XMS_ITS | Clinical Summary ---
Author Organization [address] Address [address] [place] [phone] Phone Care Team Providers Care Senior Javascript Engineer Name Role Phone Areli Smith MD Primary Care Provider [phone] Allergies Active Allergy Reactions Criticality Noted Date Comments Aspirin Tinnitus 04/25/2005 tinnitus Bee Venom Protein (Honey Bee) Hives 03/27/2023 Peanut Swelling 04/27/2022 Tongue swelling Peanut Oil Swelling 04/27/2022 Tongue swelling Penicillin G 04/25/2005 life threatening reaction Sulfamethoxazole-Trimethop rim Other 07/06/2015 Mouth fungus Medications atorvastatin (LIPITOR) 80 mg tablet Take 1 Tablet by mouth at bedtime. 10/29/2023 Active clopidogreL (PLAVIX) 75 mg tablet Take 1 Tablet by mouth daily. 10/29/2023 Active levothyroxine (SYNTHROID, LEVOTHROID) 75 mcg tablet Take 1 Tablet by mouth daily. 10/29/2023 Active cholecalciferol (VITAMIN D-3) 50 mcg (2,000 unit) tablet Take 1 Tablet by mouth daily. 07/09/2022 Active triamcinolone (KENALOG) 0.025 % cream Apply to affected area bid 05/26/2022 Active EPINEPHrine (EPIPEN) 0.3 mg/0.3 mL injection Inject 0.3 mL (0.3 mg total) into the thigh if needed for anaphylaxis. 1 each 04/13/2024 Active Active Problems Problem Noted Date Diagnosed Date Carotid stenosis 04/10/2023 Overview (04/25/2024): 04/15 >90 % right, 50% left, for CEA 04/20/23 Stroke 04/10/2023 Overview (04/25/2024): 04/15 left arm and leg weakness, right occipital/parietal infarct Vitamin D deficiency 05/23/2022 Osteoporosis 05/20/2022 Overview (04/25/2024): 05/15 T score spine -2.6 hip -2.6 Hyperlipemia 04/04/2021 Vulvar itching 06/25/2017 Psoriasis 01/26/2017 Hearing loss 03/21/2015 Overview (04/25/2024): significant Diverticulitis of colon without hemorrhage 06/09 Overview (04/25/2024): Incidental finding at colonoscopy 06/09/2014. 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 Overview (04/25/2024): 04/01 brachial artery embolus and embolectomy; repeat embolectomy done as well Allergic rhinitis 11/13/2008 Hypothyroidism 04/25/2005 Overview (04/25/2024): S/p thyroidectomy graves disease Low back pain 04/25/2005 Encounters Date Type Department Care Team Description 05/24/2024 9:40 AM EST Office Visit Gastroenterology - [address] [facility] [address] [place] [phone] Diana Kelly, FLIGHT SERVICE AGENT Colon cancer screening (Primary Dx); Encounter for colorectal cancer screening 04/25/2024 9:45 AM EST Office Visit Adult Medicine [address] [phone] Mara Alexander PA Mixed hyperlipidemia (Primary Dx); Vitamin D deficiency; Hypothyroidism, unspecified type; Osteoporosis, unspecified osteoporosis type, unspecified pathological fracture presence; Refused influenza vaccine; Encounter for colorectal cancer screening; Elevated random blood glucose level from Last 3 Months Immunizations Name Administration Dates Next Due H1N1 Inj Preservative Free 04/19/2009 Influenza trivalent, 0.5mL, preservative free (Fluarix; FluLaval; Fluzone) ages 6mo and older (Afluria) 3 years and older 01/19/2020 Influenza trivalent, with pr eservative (Fluzone; Afluria) 6mo and older 12/22/2019,04/19/2009 Td Tetanus diptheria (Tdvax) 7yo and older 01/10,10/18/2002,10/18/2002 Tdap Tetanus diptheria acell ular pertussis (Boostrix; Adacel) 7yo and older 07/21/2011 Zoster recombinant (Shingrix ) 19yo and older 01/04/2021,11/05/2020 Surgical History Surgery Date Site/Laterality Comments THYROIDECTOMY 1982 PROCEDURE: HISTORICAL TOTAL THYROIDECTOMY OTHER SURGICAL HISTORY PROCEDURE: UTERINE ARTERY EMBOLIZ; COMMENT: Novasure OTHER SURGICAL HISTORY PROCEDURE: HISTORICAL ARM SURGERY; COMMENT: blood clot removal x 2 right AC space COLONOSCOPY 06/09/2014 PROCEDURE: HISTORICAL COLONOSCOPY; COMMENT: minimal diverticulosis OTHER SURGICAL HISTORY 04/08 PROCEDURE: MAMMOGRAM BREAST BIOPSY PROCEDURE: BX BREAST; PERC NEEDLE CORE W/IMAG GUID; COMMENT: benign Medical History Medical History Date Comments Lumbago 04/25/2005 DX:Lumbago Toxic diffuse goiter without mention of thyrotoxic crisis or storm 04/25/2005 DX:Toxic diffuse goiter without mention of thyrotoxic crisis or storm; COMMENT: thyroidectomy Unspecified hypothyroidism 04/25/2005 DX:Un specified hypothyroidism Allergic rhinitis 11/13/2008 DX:Allergic rh initis Diverticulosis of colon (wit hout mention of hemorrhage) 06/09/2014 DX:Diverticulosis of colon ( without mention of hemorrhage); COMMENT: Incidental finding at colonoscopy 06/09/2014. Hearing loss 03/21/2015 DX:Hearing loss; COMMENT: significant Psoriasis 01/26/2017 DX:Psoriasis Disorder of menstrual bleeding 06/02/2007 D X:Disorder of menstrual bleeding; COMMENT: Norethindrone 5 mg daily first 12 days of the month. EMB done 07/27 Carotid stenosis 04/10/2023 DX:Carotid sten osis; COMMENT: 04/15 >90 % right, 50% left, for CEA 04/20/23 Stroke (CMS/HCC) 04/10/2023 DX:Stroke (HCC) ; COMMENT: 04/15 left arm and leg weakness, right occipital/parietal infarct Family History Medical History Relation Name Comments Diabetes Brother 1 Thyroid disease Brother 2 Graves Thyroid disease Daughter Graves; TOF Diabetes Father Heart attack Father 48 Coronary artery disease Mother Colon cancer Neg Hx Ovarian cancer Neg Hx Pancreatic cancer Neg Hx Prostate cancer Neg Hx Uterine cancer Neg Hx Relation Name Status Comments Brother 1 Brother 2 Daughter Father (Age 48) Maternal Grandmother late 50s Mother Alive Social History Tobacco Use Types Packs/Day Years Used Date Smoking Tobacco: Former Cigarettes Q uit: 03/25/2009 Smokeless Tobacco: Never Tobacco Cessation:Counseling Given: Not Answered Alcohol Use Standard Drinks/Week Comments Not Currently 0 (1 standard drink = 0.6 oz pur e alcohol) Comments Unknown Sex and Gender Information Value Date Recorded Sex Assigned at Not on file Legal Sex Female 10:40 AM EST Gender Identity Not on file Sexual Orientation Not on file Obstetrics History Last Filed Vital Signs Vital Sign Reading Time Taken Comments Blood Pressure 100/86 04/25/2024 9:40 AM EST Pulse 84 04/25/2024 9:40 AM EST Temperature 36.3 ??C (97.3 ??F) 04/25/2024 9:40 AM ES T Respiratory Rate 16 04/25/2024 9:40 AM EST Oxygen Saturation 97% 04/25/2024 9:40 AM EST Inhaled Oxygen Concentration - - Weight 71.2 kg (157 lb) 05/24/2024 9:41 AM EST Height 165.1 cm (5' 5 ) 05/24/2024 9:41 AM EST Body Mass Index 26.13 05/24/2024 9:41 AM EST Plan of Treatment Upcoming Encounters Date Type Department Care Team (Late Contact Info) Description 07/29/2024 8:30 AM EDT Appointment [facility] Endoscopy [address] [place] [phone] Zeeshan Williamson MD [address] [phone] 10/07/2024 10:40 AM EDT Appointment Radiology Department [address] [phone] 10/24/2024 9:30 AM EDT Office Visit Adult Medicine [facility] [address], [place] [phone] Areli Smith MD [address] [place] [address] Health Maintenance Due Date Last Done Comments Pneumococcal Vaccine: 50+ Years (1 of 1 - PCV) 07/17/2013 Depression Screening 03/01/2022 HIV Screening 03/01/2022 Social Influencers of Health Screening 03/01/2022 COVID-19 Vaccine ( season) 2023 04/27/2020, 04/06/2020 Influenza Vaccine (#1) 2023 , 12/22/2019, 04/19/2009, Additional history exists Colorectal Cancer Screening: Colonoscopy 06/09/2024 06/09/2014, 06/09/2014 Breast Cancer Screening 09/30/2025 10/01/19 24, 10/01/2023, 05/05/2022, Additional history exists Cervical Cancer Screening: HPV 12/09/2026 12/09/2021 Cholesterol Screening (Lipid Panel) 10/01/2028 10/02/2023, 10/02/2023 DTaP,Tdap,and Td Vaccines (5 - Td or Tdap) 01/11/2032 01/10/2022, 07/21/2011, 10/18/2002, Additional history exists Osteoporosis Screening (Bone Density Screening) 05/05/2032 05/05/2022 RSV Immunization Patients 60+ Years Old (1 - 1-dose 75+ series) 07/17/2038 Hepatitis C Screening Completed 09/15/2012 Zoster Vaccines Completed 01/04/2021, 11/05/2020 HIB Vaccines Aged Out No longer eligi ble based on patient's age to complete this topic HPV Vaccines Aged Out No longer eligi ble based on patient's age to complete this topic Hepatitis A Vaccines Aged Out No long er eligible based on patient's age to complete this topic Hepatitis B Vaccines Aged Out No long er eligible based on patient's age to complete this topic IPV Vaccines Aged Out No longer eligi ble based on patient's age to complete this topic MMR Vaccines Aged Out No longer eligi ble based on patient's age to complete this topic Meningococcal ACWY Vaccine Aged Out N o longer eligible based on patient's age to complete this topic Meningococcal B Vacine Aged Out No lo nger eligible based on patient's age to complete this topic Pneumococcal Vaccine: Pediatrics (0 to 5 Years) and At-Risk Patients (6 to 64 Years) Aged Out No longer eligible based on patient's age to complete this topic RSV Immunization Patients Under 20 months Aged Out No longer eligible based on patient's age to complete this topic Varicella Vaccines Aged Out No longer eligible based on patient's age to complete this topic Procedures Procedure Name Priority Date/Time Associated Diagnosis Comments CBC WITH AUTO DIFFERENTIAL Routine 05/20/2024 10:54 AM EST Vitamin D deficiency Mixed hyperlipidemia Hypothyroidism, unspecified type Osteoporosis, unspecified osteoporosis type, unspecified pathological fracture presence Refused influenza vaccine Encounter for colorectal cancer screening Elevated random blood glucose level VITAMIN D 25 HYDROXY Routine 05/20/2024 10:54 AM EST Osteoporosis, unspecified osteoporosis type, unspecified pathological fracture presence COMPREHENSIVE METABOLIC PANEL Routine 05/20/2024 10:54 AM EST Vitamin D deficiency Mixed hyperlipidemia Hypothyroidism, unspecified type Osteoporosis, unspecified osteoporosis type, unspecified pathological fracture presence Refused influenza vaccine Encounter for colorectal cancer screening Elevated random blood glucose level CBC AND DIFFERENTIAL Routine 05/20/2024 10:54 AM EST Vitamin D deficiency Mixed hyperlipidemia Hypothyroidism, unspecified type Osteoporosis, unspecified osteoporosis type, unspecified pathological fracture presence Refused influenza vaccine Encounter for colorectal cancer screening Elevated random blood glucose level THYROID STIMULATING HORMONE Routine 03/17/2024 1:47 PM EST Postsurgical hypothyroidism LIPID PANEL Routine 10/02/2023 SCREENING MAMMOGRAPHY BI 2-VIEW BREAST INC CAD Routine 10/01/2023 2:37 PM EDT Encounter for screening mammogram for malignant neoplasm of breast DXA BONE DENSITY STUDY 1+ SITS AXIAL SKEL Routine 05/05/2022 9:17 AM EST Encounter for general adult medical examination without abnormal findings HPV Routine 12/09/2021 COLONOSCOPY Routine 06/09/2014 HEPATITIS C SCREENING Routine 09/15/2012 from Last 3 Months or Most Recently Relevant to Health Maintenance Results * CBC auto differential (05/20/2024 10:54 AM EST) [facility] WBC 6.9 4.8 - 10.8 K/mcL LAB HEMETOLOGY METHOD 05/20/2024 12:30 PM [facility] RBC 4.60 3.80 - 4.80 M/mcL LAB HEMETOLOGY METHOD 05/20/2024 12:30 PM [facility] Hemoglobin 14.3 11.5 - 16.0 g/dL LAB HEMETOLOGY METHOD 05/20/2024 12:30 PM [facility] Hematocrit 44.0 35.0 - 47.0 % LAB HEMETOLOGY METHOD 05/20/2024 12:30 PM [facility] MCV 95.0 79.0 - 98.0 FL LAB HEMETOLOGY METHOD 05/20/2024 12:30 PM [facility] MCH 30.9 27.0 - 32.0 pcg LAB HEMETOLOGY METHOD 05/20/2024 12:30 PM [facility] MCHC 32.5 32.0 - 37.0 g/dL LAB HEMETOLOGY METHOD 05/20/2024 12:30 PM [facility] RDW 13.2 11.0 - 15.0 % LAB HEMETOLOGY METHOD 05/20/2024 12:30 PM [facility] Platelets 283 130 - 400 K/mcL LAB HEMETOLOGY METHOD 05/20/2024 12:30 PM [facility] MPV 10.2 7.0 - 11.0 FL LAB HEMETOLOGY METHOD 05/20/2024 12:30 PM [facility] NRBC 0.0 <1.0 % LAB HEMETOLOGY METHOD 05/20/2024 12:30 PM [facility] NRBC Absolute 0.00 <0.10 K/mcL LAB HEMETOLOGY METHOD 05/20/2024 12:30 PM [facility] Neutrophils Relative 66.6 % LAB HEMETOLOGY METHOD 05/20/2024 12:30 PM [facility] Lymphocytes Relative 22.1 % LAB HEMETOLOGY METHOD 05/20/2024 12:30 PM [facility] Monocytes Relative 9.3 % LAB HEMETOLOGY METHOD 05/20/2024 12:30 PM [facility] Eosinophils Relative 1.3 % LAB HEMETOLOGY METHOD 05/20/2024 12:30 PM [facility] Basophils Relative 0.6 % LAB HEMETOLOGY METHOD 05/20/2024 12:30 PM [facility] Immature Granulocytes Relative 0.1 % LAB HEMETOLOGY METHOD 05/20/2024 12:30 PM [facility] Neutrophils Absolute 4.58 1.50 - 7.00 K/mcL LAB HEMETOLOGY METHOD 05/20/2024 12:30 PM [facility] Lymphocytes Absolute 1.52 1.00 - 5.00 K/mcL LAB HEMETOLOGY METHOD 05/20/2024 12:30 PM [facility] Monocytes Absolute 0.64 0.20 - 1.00 K/mcL LAB HEMETOLOGY METHOD 05/20/2024 12:30 PM [facility] Eosinophils Absolute 0.09 0.00 - 0.50 K/mcL LAB HEMETOLOGY METHOD 05/20/2024 12:30 PM [facility] Basophils Absolute 0.04 0.00 - 0.20 K/[facility] LAB HEMETOLOGY METHOD 05/20/2024 12:30 PM EST [facility] Immature Granulocytes Absolute 0.01 0.00 - 0.03 K/[facility] LAB HEMETOLOGY METHOD 05/20/2024 12:30 PM EST [facility] Blood Venous blood specimen / Unknown Venipuncture / Unknown 05/20/2024 10:54 AM EST 05/20/2024 10:54 AM EST us Mara BRANDT LAB BLOOD ORDERABLES Final Re sult Performing Organization Address City/[facility]/ZIP Co de Phone Number [facility] [address] [place] [address], [place] [phone] * Vitamin D 25 hydroxy (05/20/2024 10:54 AM EST) Vit D, 25-Hydroxy 48.3 30.0 - 80.0 ng/mL LAB CHEMISTRY METHOD 05/20/2024 5:45 PM EST [facility] Blood Venous blood specimen / Unknown Venipuncture / Unknown 05/20/2024 10:54 AM EST 05/20/2024 10:54 AM EST us Mara BRANDT LAB BLOOD ORDERABLES Final Re sult [facility] [address] [place] [address], [place] [phone] * Comprehensive metabolic panel (05/20/2024 10:54 AM EST) Sodium 143 133 - 145 mmol/L LAB CHEMISTRY METHOD 05/20/2024 5:16 PM EST [facility] Potassium 4.4 3.5 - 5.5 mmol/L LAB CHEMISTRY METHOD 05/20/2024 5:16 PM EST [facility] Chloride 107 96 - 110 mmol/L LAB CHEMISTRY METHOD 05/20/2024 5:16 PM [facility] CO2 27 21 - 32 mmol/L LAB CHEMISTRY METHOD 05/20/2024 5:16 PM [facility] Anion Gap 9 3 - 11 LAB CHEMISTRY METHOD 05/20/2024 5:16 PM [facility] Glucose 93 70 - 100 mg/dL LAB CHEMISTRY METHOD 05/20/2024 5:16 PM [facility] BUN 20 5 - 25 mg/dL LAB CHEMISTRY METHOD 05/20/2024 5:16 PM [facility] Creatinine 0.95 0.50 - 1.10 mg/dL LAB CHEMISTRY METHOD 05/20/2024 5:16 PM [facility] eGFR 69 >=60 mL/min/1. 73m2 LAB CHEMISTRY METHOD 05/20/2024 5:16 PM [facility] Comment:Calculation based on the??Chronic Kidney Disease Epidemiology Collaboration (CKD-EPI) equation refit??without adjustment for race. BUN/Creatinine Ratio 21.1 LAB CHEMISTRY METHOD 05/20/2024 5:16 PM [facility] Calcium 9.0 8.5 - 10.5 mg/dL LAB CHEMISTRY METHOD 05/20/2024 5:16 PM [facility] AST (SGOT) 28 10 - 42 unit/L LAB CHEMISTRY METHOD 05/20/2024 5:16 PM [facility] ALT (SGPT) 33 10 - 60 unit/L LAB CHEMISTRY METHOD 05/20/2024 5:16 PM [facility] Alkaline Phosphatase 78 42 - 121 unit/L LAB CHEMISTRY METHOD 05/20/2024 5:16 PM [facility] Total Protein 7.4 6.0 - 8.0 g/dL LAB CHEMISTRY METHOD 05/20/2024 5:16 PM [facility] Albumin 3.9 3.2 - 5.0 g/dL LAB CHEMISTRY METHOD 05/20/2024 5:16 PM EST [facility] Total Bilirubin 0.6 0.0 - 1.4 mg/dL LAB CHEMISTRY METHOD 05/20/2024 5:16 PM EST [facility] Blood Venous blood specimen / Unknown Venipuncture / Unknown 05/20/2024 10:54 AM EST 05/20/2024 10:54 AM EST Mara BRANDT LAB BLOOD ORDERABLES Final Re sult [facility] [address] [place] [address], [place] [phone] * Thyroid stimulating hormone (03/17/2024 1:47 PM EST) TSH 0.76 0.40 - 4.00 mcIU/mL LAB CHEMISTRY METHOD 03/17/2024 5:07 PM EST [facility] Blood Venous blood specimen / Unknown Venipuncture / Unknown 03/17/2024 1:47 PM EST 03/17/2024 1:47 PM EST Areli Smith MD LAB BLOOD ORDERABLES Final Resul t Performing Organization Address [facility]/ZIP Co de Phone Number [facility] [address] [place] [address], [place] [phone] * (ABNORMAL) Lipid panel (10/02/2023) LDL/HDL Ratio 3 0 - 4 Triglycerides 151(A) 0 - 150 mg/dL Cholesterol 148 0 - 200 mg/dL HDL 54 >=40 mg/dL LDL Cholesterol 64 0 - 100 mg/dL Blood Venous blood specimen / Unknown [place] Provider LAB BLOOD ORDERABLES Janeth l Result * SCREENING MAMMOGRAPHY BI 2-VIEW BREAST INC CAD (10/01/2023 2:37 PM EDT) Anatomical Region Laterality Modality Radiographic Yahaira ging 05/05/2022 8:14 AM EST Narrative 10/02/2023 11:46 AM EDT This is a summary report. The complete report is available in the patient's medical record. If you cannot access the medical record, please contact the sending organization for a detailed fax or copy. Study: SCREENING MAMMOGRAPHY BI 2-VIEW BREAST INC CAD Technique: Bilateral full-field digital screening mammography is obtained and read in conjunction with computer aided detection. ??Tomosynthesis as well as 2D C-View imaging were obtained. Comparison: Comparison made to multiple priors, most recent May 05, 2022, and most remote April 21, 2019. Breast composition: The breast tissue is heterogeneously dense, which may obscure small masses. Right breast: No suspicious masses, suspicious calcifications or other abnormalities are seen. Left breast: History of previous needle core biopsy. ??No suspicious masses, suspicious calcifications or other abnormalities are seen. IMPRESSION: Impression: Bilateral breasts: Benign, no specific mammographic evidence of malignancy. ??Normal interval follow-up is recommended in 12 months. BI-RADS: Category 2: Benign Procedure Note Arabella Bain MD - 01/06/2024 This is a summary report. The complete report is available in thepatient's medical record. If you cannot access the medical record, pleasecontact the sending organization for a detailed fax or copy. Study: SCREENING MAMMOGRAPHY BI 2-VIEW BREAST INC CAD Technique: Bilateral full-field digital screening mammography is obtainedand read in conjunction with computer aided detection. Tomosynthesis aswell as 2D C-View imaging were obtained. Comparison: Comparison made to multiple priors, most recent April, and most remote April 21, 2019. Breast composition: The breast tissue is heterogeneously dense, which mayobscure small masses. Right breast: No suspicious masses, suspicious calcifications or otherabnormalities are seen. Left breast: History of previous needle core biopsy. No suspiciousmasses, suspicious calcifications or other abnormalities are seen. IMPRESSION: Impression: Bilateral breasts: Benign, no specific mammographic evidence ofmalignancy. Normal interval follow-up is recommended in 12 months. BI-RADS: Category 2: Benign Vargas Tinoco CNM IMG XR PROCEDURES Final Resul t * DXA BONE DENSITY STUDY 1+ JAKUB DELACRUZEL (05/05/2022 9:17 AM EST) Anatomical Region Laterality Modality Bone Densitometr y 12/09/2021 11:1 5 AM EDT Narrative 05/06/2022 6:40 PM EST BONE DENSITY SCAN (DEXA): FINDINGS: Lumbar Spine T-score is -2.6. ?? (SD relative to 20-29 y/o adult) Z-score is -1.3. ??(SD relative to age matched peers) This is considered osteoporosis by WHO criteria. Left Hip T-score is -2.6. Z-score is -1.3. This is considered osteoporosis by WHO criteria. Comparison exam(s): None. IMPRESSION: IMPRESSION: ?? Osteoporosis by WHO criteria. [facility] Department of Internal Medicine recommends using National Osteoporosis Foundation (NOF) guidelines in treatment decisions related to osteoporosis. NOF guidelines suggest considering treatment for postmenopausal women and men aged 50 or older presenting with the following: History of hip or vertebral fracture. T-score = -2.5 (DXA) at the femoral neck, total hip, or spine, after appropriate evaluation to exclude secondary causes. Low bone mass (T-score between -1.0 and -2.5 at the femoral neck or spine) AND a 10-year probability of a hip fracture = 3% OR a 10-year probability of a major osteoporosis-related fracture = 20% based on the [place]-adapted WHO algorithm Please note that all treatment decisions require clinical judgment and consideration of individual patient factors, including patient preferences, co-morbidities, previous drug use, risk factors not captured in the FRAX model (e.g., frailty, falls, vitamin D deficiency, increased bone turnover, interval significant decline in bone density) and possible under- or over-estimation of fracture risk by FRAX. Optional alternative screening schedule based on zenia Garcia., [facility] April 10, 2011 for patients with osteopenia (based on hip BMD T-score) is as follows: * ??advanced osteopenia (T scores -2.00 to -2.49), BMD testing every year * ??moderate osteopenia (T scores -1.50 to -1.99), BMD testing every 5 years mild osteopenia or normal BMD (T scores -1.50 and higher), BMD testing every 15 years Procedure Note Shey Dang MD - 04/28/2023 BONE DENSITY SCAN (DEXA): FINDINGS: Lumbar Spine T-score is -2.6. (SD relative to 20-29 y/o adult) Z-score is -1.3. (SD relative to age matched peers) This is considered osteoporosis by WHO criteria. Left Hip T-score is -2.6. Z-score is -1.3. This is considered osteoporosis by WHO criteria. Comparison exam(s): None. IMPRESSION: IMPRESSION: Osteoporosis by WHO criteria. [facility] Department of Internal Medicine recommendsusing National Osteoporosis Foundation (NOF) guidelines in treatment decisions related toosteoporosis. NOF guidelines suggest considering treatment for postmenopausal women and menaged 50 or older presenting with the following: History of hip or vertebral fracture. T-score = -2.5 (DXA) at the femoral neck, total hip, or spine, afterappropriate evaluation to exclude secondary causes. Low bone mass (T-score between -1.0 and -2.5 at the femoral neck or spine)AND a 10-year probability of a hip fracture = 3% OR a 10-year probability of a majorosteoporosis-related fracture = 20% based on the [place]-adapted WHO algorithm Please note that all treatment decisions require clinical judgment andconsideration of individual patient factors, including patient preferences, co- morbidities,previous drug use, risk factors not captured in the FRAX model (e.g., frailty, falls, vitaminD deficiency, increased bone turnover, interval significant decline in bone density) andpossible under- or over-estimation of fracture risk by FRAX. Optional alternative screening schedule based on los Garcia al., NEJMJanuary 2011 for patients with osteopenia (based on hip BMD T-score) is as follows: * advanced osteopenia (T scores -2.00 to -2.49), BMD testing every year * moderate osteopenia (T scores -1.50 to -1.99), BMD testing every 5years mild osteopenia or normal BMD (T scores -1.50 and higher), BMD testingevery 15 years us Vargas Tinoco CNM IMG DXA PROCEDURES Final Resu lt * Cervical Cancer Screening: HPV (12/09/2021) Pathologist [facility] Cervical Cancer Screening: HPV no interpretation , abstracted Historical Provider HEALTH MAINTENANCE Final Result * Colonoscopy (06/09/2014) Pathologist [facility] Colonoscopy no interpretation , abstracted Anatomical Region Laterality Modality Other Historical Provider HEALTH MAINTENANCE Final Result * Hepatitis C Screening (09/15/2012) Pathologist [facility] Hepatitis C Screening abstracted Historical Provider HEALTH MAINTENANCE Final Result from Last 3 Months or Most Recently Relevant to Health Maintenance Insurance [facility] Care Teams Senior Javascript Engineer Relationship Specialty Start Date End Date Areli Smith MD [address] [place] [address] PCP - General 07/22/1991
== END 2024-06-02 09:48 | disposition home or self-care (01) ==
LOC: HO.US 09:47
PROVIDERS: PCP Internal Medicine; Visit Provider Surgery Vascular Surgery
DX: I65.23 Occlusion and stenosis of bilateral carotid arteries (principal)
CPT/HCPCS: 93880

== ENCOUNTER → 2024-06-02 09:49 | Outpatient (BNV) | payer OTHER, SELFPAY | PROVIDERS: PCP Internal Medicine; Visit Provider Radiology Diagnostic Radiology | DX: I65.23 Occlusion and stenosis of bilateral carotid arteries (principal) | CPT/HCPCS: 93880 ==

== ENCOUNTER 2024-06-14 13:04 | Outpatient (AMB) | payer OTHER, SELFPAY ==
--- NOTE | 2024-06-14 13:24 | MHC.OFFVIS ---
Intake Visit Reasons: follow up results of carotid ultrasound Intake Note: 6 mo follow up carotid US 06/02/24. Pt states no complaints Equity Trader Required: No Accompanied by: Self / Same As Patient Allergies bee pollen [bee stings] Allergy (Verified 06/14/24 13:26) Redness of Skin Peanut Butter Allergy (Verified 06/14/24 13:26) Swelling Penicillins Allergy (Verified 06/14/24 13:26) Anaphylaxis sulfamethoxazole [From Bactrim] Allergy (Verified 06/14/24 13:26) Rash trimethoprim [From Bactrim] Allergy (Verified 06/14/24 13:26) Rash aspirin [ASA] Adverse Reaction (Verified 06/14/24 13:) Itching HPI HPI follow up results of carotid ultrasound: Details: The patient is a 58-year-old female presenting for routine carotid artery surveillance following the prior carotid endarterectomy on the right side conducted on April 20, 2023. The follow-up ultrasound indicates normal left carotid artery, whereas the right demonstrates a slight stenosis that is now assessed as borderline. The patient continues to experience persistent numbness near the surgical site post-procedure without complete resolution of sensation. The patient also engages in awareness campaigns and fundraisers to increase knowledge about ovarian cancer and its early detection due to its often silent presentation. She reported ongoing participation for nearly a decade and highlighted misdiagnosis issues and the need for improved screening solutions. She is now for carotid surveillance follow-up [facility] Medical History Hearing difficulty of both ears Hiatal hernia GERD (gastroesophageal reflux disease) CVA (cerebral vascular accident) On anticoagulant therapy Elevated cholesterol DVT (deep venous thrombosis) Graves disease Age related osteoporosis Surgical History History of endometrial ablation H/O colonoscopy History of embolectomy H/O thyroidectomy Social History Household Members: Spouse and Family Housing: House Are you a primary inspector health care facilities to a significant other at home: No Do you presently have visiting nurse or other home services: Yes Alcohol intake: current Alcohol intake frequency: a few times a month Alcohol type: beer Patient Tobacco Use Status: Former Tobacco user service: No Review of Systems Const All systems reviewed & are unremarkable except as noted in HPI and below Reports no additional complaints ENT Reports Normal hearing present Card Denies chest pain, Denies chest pain at rest, Denies chest pain with activity and Denies pedal edema Resp Denies cough GI Denies abdominal pain Musc Denies abnormal gait, Denies muscle cramps and Denies radiating pain into limb Skin/Breast Denies skin ulcer and Denies wounds Neuro Reports Normal hearing present and Denies abnormal gait Psych Reports no additional complaints Physical Exam Const General: cooperative, healthy appearing and comfortable Orientation/consciousness: oriented to person, oriented to place and oriented to time HEENT Head: Yes normal to inspection Neck Neck: Yes normal visual inspection Carotids: no bruits Chest Chest palpation & inspection: normal inspection of the chest Resp Effort & Inspection: normal respiratory effort and able to speak in complete sentences Auscultation: clear to auscultation bilaterally, no crackles, no rales, no rhonchi and no wheezes Cardio Rate: regular rate Rhythm: regular rhythm Heart sounds: S1 normal heart sound present and S2 normal heart sound present Bruits: no carotid bruits Peripheral pulses: Peripheral pulses 2+ throughout GI Inspection: Yes normal to inspection Skin Wounds: no wounds Hair: normal Neuro General: oriented to person, oriented to place and oriented to time Cranial nerves: Yes CN's II-XII intact bilaterally and Yes Normal hearing present Cognition (Neuro): normal cognition Motor exam (neuro): 5/5 motor strength present throughout Extrem Other: venous exam: No significant superficial varicosities or spider telangiectasias, minimal edema General: No clubbing, No cyanosis and No edema Psych Appearance: grossly normal Mental Status: mental status grossly normal Speech and movement: Normal speech and movement present Results Reviewed Results Reviewed: Carotid ultrasound dated 06/02/2024 demonstrates right-sided stenosis of 50-79% and left-sided less than 49%. Written report and images were reviewed. Assessment & Plan Assessment & Plan (1) Bilateral carotid artery stenosis: Comment: 04/20/2023 - right carotid endarterectomy Code(s): I65.23 - Occlusion and stenosis of bilateral carotid arteries Category: Medical Plan: In short patient has asymptomatic carotid disease. We have reviewed signs and symptoms of a stroke. We also discussed risk factor modification inclusive a healthy diet low in cholesterol. The patient will follow up with us with surveillance ultrasound of the carotids 1 year. Should there be any changes or signs or symptoms of a stroke we will be happy to see them back sooner. Thank you for allowing us to participate in this patient's care. If there are any questions or concerns please do not hesitate to contact us. Orders: Orders US carotid duplex BI 1 Year I65.23 - Occlusion and stenosis of bilateral carotid arteries Coding Level of Care Code Est Pt Level 4 (30038) Complex EM visit Add On G2211 Diagnoses Bilateral carotid artery stenosis I65.23
--- OUTSIDE RECORDS SUMMARY | 2024-06-14 15:52 | XMS_ITS | Clinical Summary ---
Author Organization [address] Address [address] [place] [phone] Phone Care Team Providers Care Trouble Locator Test Desk Name Role Phone Areli Smith MD Primary Care Provider [phone] Allergies Active Allergy Reactions Criticality Noted Date [...] Office Visit Gastroenterology - [address] [facility] [address] [place] [phone] Diana Kelly, REFRIGERATION TECHNICIAN Colon cancer screening (Primary Dx); Encounter for colorectal cancer screening 04/25/2024 9:45 AM EST Office Visit Adult Medicine [address] [phone] Mara Alexander PA Mixed hyperlipidemia (Primary Dx); [...] Info) Description 07/29/2024 8:30 AM EDT Appointment [facility] Endoscopy [address] [place] [phone] Zeeshan Williamson MD [address] [address] 10/07/2024 10:40 AM EDT Appointment Radiology Department [address] [phone] 10/24/2024 9:30 AM EDT Office Visit Adult Medicine [facility] [address] [place], [place] [phone] Areli Smith MD [address] [place] [address] Health Maintenance Due Date Last Done Comments [...] CBC auto differential (05/20/2024 10:54 AM EST) [facility] WBC 6.9 4.8 - 10.8 K/mcL LAB HEMETOLOGY METHOD 05/20/2024 12:30 PM [facility] RBC 4.60 3.80 - 4.80 M/mcL LAB HEMETOLOGY METHOD 05/20/2024 12:30 PM [facility] Hemoglobin 14.3 11.5 - 16.0 g/dL LAB HEMETOLOGY METHOD 05/20/2024 12:30 PM [facility] Hematocrit 44.0 35.0 - 47.0 % LAB HEMETOLOGY METHOD 05/20/2024 12:30 PM [facility] MCV 95.0 79.0 - 98.0 FL LAB HEMETOLOGY METHOD 05/20/2024 12:30 PM [facility] MCH 30.9 27.0 - 32.0 pcg LAB HEMETOLOGY METHOD 05/20/2024 12:30 PM [facility] MCHC 32.5 32.0 - 37.0 g/dL LAB HEMETOLOGY METHOD 05/20/2024 12:30 PM [facility] RDW 13.2 11.0 - 15.0 % LAB HEMETOLOGY METHOD 05/20/2024 12:30 PM [facility] Platelets 283 130 - 400 K/mcL LAB HEMETOLOGY METHOD 05/20/2024 12:30 PM [facility] MPV 10.2 7.0 - 11.0 FL LAB HEMETOLOGY METHOD 05/20/2024 12:30 PM [facility] NRBC 0.0 <1.0 % LAB HEMETOLOGY METHOD 05/20/2024 12:30 PM [facility] NRBC Absolute 0.00 <0.10 K/mcL LAB HEMETOLOGY METHOD 05/20/2024 12:30 PM [facility] Neutrophils Relative 66.6 % LAB HEMETOLOGY METHOD 05/20/2024 12:30 PM [facility] Lymphocytes Relative 22.1 % LAB HEMETOLOGY METHOD 05/20/2024 12:30 PM [facility] Monocytes Relative 9.3 % LAB HEMETOLOGY METHOD 05/20/2024 12:30 PM [facility] Eosinophils Relative 1.3 % LAB HEMETOLOGY METHOD 05/20/2024 12:30 PM [facility] Basophils Relative 0.6 % LAB HEMETOLOGY METHOD 05/20/2024 12:30 PM [facility] Immature Granulocytes Relative 0.1 % LAB HEMETOLOGY METHOD 05/20/2024 12:30 PM [facility] Neutrophils Absolute 4.58 1.50 - 7.00 K/mcL LAB HEMETOLOGY METHOD 05/20/2024 12:30 PM [facility] Lymphocytes Absolute 1.52 1.00 - 5.00 K/mcL LAB HEMETOLOGY METHOD 05/20/2024 12:30 PM [facility] Monocytes Absolute 0.64 0.20 - 1.00 K/mcL LAB HEMETOLOGY METHOD 05/20/2024 12:30 PM [facility] Eosinophils Absolute 0.09 0.00 - 0.50 K/mcL LAB HEMETOLOGY METHOD 05/20/2024 12:30 PM [facility] Basophils Absolute 0.04 0.00 - 0.20 K/[facility] LAB HEMETOLOGY METHOD 05/20/2024 12:30 PM EST [facility] Immature Granulocytes Absolute 0.01 0.00 - 0.03 K/[facility] LAB HEMETOLOGY METHOD 05/20/2024 12:30 PM EST [facility] Blood Venous blood specimen / Unknown Venipuncture / Unknown 05/20/2024 10:54 AM EST 05/20/2024 10:54 AM EST us Mara BRANDT LAB BLOOD ORDERABLES Final Re sult Performing Organization Address City/[facility]/ZIP Co de Phone Number [facility] [address] [place] [address], [place] [phone] * Vitamin D 25 hydroxy (05/20/2024 10:54 AM EST) Vit D, 25-Hydroxy 48.3 30.0 - 80.0 ng/mL LAB CHEMISTRY METHOD 05/20/2024 5:45 PM EST [facility] Blood Venous blood specimen / Unknown Venipuncture / Unknown 05/20/2024 10:54 AM EST 05/20/2024 10:54 AM EST us Mara BRANDT LAB BLOOD ORDERABLES Final Re sult [facility] [address] [place] [address], [place] [phone] * Comprehensive metabolic panel (05/20/2024 10:54 AM EST) Sodium 143 133 - 145 mmol/L LAB CHEMISTRY METHOD 05/20/2024 5:16 PM EST [facility] Potassium 4.4 3.5 - 5.5 mmol/L LAB CHEMISTRY METHOD 05/20/2024 5:16 PM EST [facility] Chloride 107 96 - 110 mmol/L LAB CHEMISTRY METHOD 05/20/2024 5:16 PM [facility] CO2 27 21 - 32 mmol/L LAB CHEMISTRY METHOD 05/20/2024 5:16 PM [facility] Anion Gap 9 3 - 11 LAB CHEMISTRY METHOD 05/20/2024 5:16 PM [facility] Glucose 93 70 - 100 mg/dL LAB CHEMISTRY METHOD 05/20/2024 5:16 PM [facility] BUN 20 5 - 25 mg/dL LAB CHEMISTRY METHOD 05/20/2024 5:16 PM [facility] Creatinine 0.95 0.50 - 1.10 mg/dL LAB CHEMISTRY METHOD 05/20/2024 5:16 PM [facility] eGFR 69 >=60 mL/min/1. 73m2 LAB CHEMISTRY METHOD 05/20/2024 5:16 PM [facility] Comment:Calculation based on the??Chronic Kidney Disease Epidemiology Collaboration (CKD-EPI) equation refit??without adjustment for race. BUN/Creatinine Ratio 21.1 LAB CHEMISTRY METHOD 05/20/2024 5:16 PM [facility] Calcium 9.0 8.5 - 10.5 mg/dL LAB CHEMISTRY METHOD 05/20/2024 5:16 PM [facility] AST (SGOT) 28 10 - 42 unit/L LAB CHEMISTRY METHOD 05/20/2024 5:16 PM [facility] ALT (SGPT) 33 10 - 60 unit/L LAB CHEMISTRY METHOD 05/20/2024 5:16 PM [facility] Alkaline Phosphatase 78 42 - 121 unit/L LAB CHEMISTRY METHOD 05/20/2024 5:16 PM [facility] Total Protein 7.4 6.0 - 8.0 g/dL LAB CHEMISTRY METHOD 05/20/2024 5:16 PM [facility] Albumin 3.9 3.2 - 5.0 g/dL LAB CHEMISTRY METHOD 05/20/2024 5:16 PM EST [facility] Total Bilirubin 0.6 0.0 - 1.4 mg/dL LAB CHEMISTRY METHOD 05/20/2024 5:16 PM EST [facility] Blood Venous blood specimen / Unknown Venipuncture / Unknown 05/20/2024 10:54 AM EST 05/20/2024 10:54 AM EST Mara BRANDT LAB BLOOD ORDERABLES Final Re sult [facility] [address] [place] [address], [place] [phone] * Thyroid stimulating hormone (03/17/2024 1:47 PM EST) TSH 0.76 0.40 - 4.00 mcIU/mL LAB CHEMISTRY METHOD 03/17/2024 5:07 PM EST [facility] Blood Venous blood specimen / Unknown Venipuncture / Unknown 03/17/2024 1:47 PM EST 03/17/2024 1:47 PM EST Areli Smith MD LAB BLOOD ORDERABLES Final Resul t Performing Organization Address [facility]/ZIP Co de Phone Number [facility] [address] [place] [address], [place] [phone] * (ABNORMAL) Lipid panel (10/02/2023) LDL/HDL Ratio [...] IMPRESSION: ?? Osteoporosis by WHO criteria. [facility] Department of Internal Medicine recommends using [...] screening schedule based on zenia Garcia., [facility] April 10, 2011 for patients [...] IMPRESSION: IMPRESSION: Osteoporosis by WHO criteria. [facility] Department of Internal Medicine recommendsusing National [...] * Cervical Cancer Screening: HPV (12/09/2021) Pathologist [facility] Cervical Cancer Screening: HPV no interpretation , abstracted Historical Provider HEALTH MAINTENANCE Final Result * Colonoscopy (06/09/2014) Pathologist [facility] Colonoscopy no interpretation , abstracted Anatomical Region Laterality Modality Other Historical Provider HEALTH MAINTENANCE Final Result * Hepatitis C Screening (09/15/2012) Pathologist [facility] Hepatitis C Screening abstracted Historical Provider HEALTH MAINTENANCE Final Result from Last 3 Months or Most Recently Relevant to Health Maintenance Insurance [facility] Care Teams Trouble Locator Test Desk Relationship Specialty Start Date End Date Areli Smith MD [address] [place] [address] PCP - General 07/22/1991
--- OUTSIDE RECORDS SUMMARY | 2024-06-14 15:52 | XMS_ITS | Encounter Summary ---
Author Organization [facility] Address [address] [place] [address] Care Team Providers Care Production Welder Name Role Phone Areli Smith MD Primary Care Provider [phone] Reason for Visit * Reason Comments Establish Care Pre colonPt on Blood thinners * Consultation (Routine) - Closed Specialty Diagnoses / Procedures Referred By Contskyler t Referred To Contact Gastroenterology Diagnoses Encounter for colorectal cancer screening Mara Alexander PA [address] [place] [address] Phone: tel: fax: Gastroenterology - [address] [address] Phone: tel: fax: Referral ID Status Reason Start Date Expiration Date V isits Requested Visits Authorized [id number] Closed Specialty Services Required 04/25/2024 04/25/2025 1 1 Encounter Details Date Type Department Care Team ([facility] st Contact Info) Description 05/24/2024 9:40 AM EST Office Visit Gastroenterology - [address] [place] [address] [phone] Diana Kelly, ROBY [address] [phone] Colon cancer screening (Primary Dx); Encounter for [...] year colonoscopy. Her last was done at [facility] and according to her she had no [...] of holingher anticoagulation including clots, another CVA, [place]. She agrees to proceed. ROS: GENERAL: No [...] in the patient's care. Board Certified Gastroenterology [facility] Medical [facility] W [phone] [address] [email or web address] Diana Kelly NP documented in this encounter Plan of Treatment Upcoming Encounters Date Type Department Care Team (Late st Contact Info) Description 07/29/2024 8:30 AM EDT Appointment [facility] Endoscopy [address] [place] [phone] Zeeshan Williamson MD [address] [address] 10/07/2024 10:40 AM EDT Appointment Radiology Department [address] [phone] 10/24/2024 9:30 AM EDT Office Visit Adult Medicine [facility] [address] [place] [phone] Areli Smith MD [address] [place] [address] documented as of this encounter Visit Diagnoses Diagnosis Colon cancer screening- Primary Special screening for malignant neoplasms, colon Encounter for colorectal cancer screening Encounter for screening mammogram for breast cancer documented in this encounter Orders Outpatient Referral Count Last Ordered Date Fir st Ordered Date AMB REFERRAL TO GASTROENTEROLOGY 05/25/19 documented in this encounter Care Teams Production Welder Relationship Specialty Start Date End Date Areli Smith MD [address] [place] [id number] PCP - General 07/22/1991 documented as of this encounter
--- OUTSIDE RECORDS SUMMARY | 2024-06-14 15:52 | XMS_ITS | Clinical Summary ---
Author Organization [facility] Address [address] [place] [address] Care Team Providers Care Insurance Office Supervisor Name Role Phone Areli Smith MD Primary Care Provider [phone] Allergies Active Allergy Reactions Criticality Noted Date [...] age to complete this topic Care Teams Insurance Office Supervisor Relationship Specialty Start Date End Date Areli Smith MD PCP - General Internal Medicine 03/12/23
== END 2024-06-14 13:51 | disposition home or self-care (01) ==
LOC: HO.HVS 13:04
PROVIDERS: PCP Internal Medicine; Visit Provider Surgery Vascular Surgery
DX: I65.23 Occlusion and stenosis of bilateral carotid arteries (principal)
CPT/HCPCS: 99214